=== PATIENT | male | born 1970 | race Two or more races ===

== ENCOUNTER 2020-06-16 16:00 | Emergency (ER) | payer OTHER, SELFPAY ==
[2020-06-16 19:11] VITALS: BP 159/99; PULSE 84; RESP 16; TEMP 36.8; O2SAT 99; BMI 27.2
--- NOTE | 2020-06-16 19:25 | ED_ITS ---
HPI - General Adult General Chief complaint: General Medical Stated complaint: ARM TINGLING Time Seen by Provider: 06/16/20 19:19 Source: patient Mode of arrival: ambulatory Limitations: no limitations History of Present Illness HPI narrative: 50 yo male with past medical history of asthma, HLD, anemia, chronic back pain here with left arm numbness x 1 week. Patient tells me he started having shoulder pain and was doing alot of activity then developed left arm numbness which is intermittent and associated with pain. No weakness. No injury or trauma. No CASTRO, dizziness. Taking flexeril 5 mg PRN with continued sym ptoms. Onset (ago): day(s) Location: upper extremity Radiation: extremity (down left arm ) Severity: mild Quality: burning Pain Consistency: intermittent Relieving factors: none Exacerbating factors: none Associated symptoms: denies other symptoms Related Data Previous Rx's Medication Instructions Recorded simvastatin 10 mg tablet 10 mg PO BEDTIME 90 Days #90 tab 05/23/20 ascorbic acid (vitamin C) 500 mg 500 mg PO DAILY #30 tab 06/01/20 tablet cyclobenzaprine 10 mg PO TID PRN #10 tab 06/16/20 dexamethasone [Decadron] 4 mg PO DAILY #5 tab 06/16/20 naproxen 500 mg PO BID #14 tab 06/16/20 Allergies Allergy/AdvReac Type Severity Reaction Status Date / Time Penicillins [PENICILLINS] Allergy Unknown STOMACH Unverified 04/29/20 15:00 UPSET Penicillin AdvReac Unknown upset Uncoded 07/30/19 00:00 stomach Review of Systems Review of Systems: Yes all other systems are reviewed and are negative Constitutional: Constitutional: Reports no additional constitutional complaints, Denies body ache(s), Denies chills, Denies fever(s), Denies headache(s) and Denies weakness Eyes: Eyes: Reports no additional eye complaints and Denies change in vision ENT: Reports system reviewed and no additional complaints, except as documented, Denies dizziness, Denies headache(s), Denies nasal congestion, Denies nasal discharge and Denies neck pain Cardiovascular: Cardiovascular: Reports no additional cardiovascular com plaints, Denies chest pain, Denies leg edema and Denies dyspnea Respiratory: Respiratory: Reports no additional respiratory complaints, Denies cough and Denies dyspnea Gastrointestinal: Gastrointestinal: Reports no additional gastrointestinal complaints, Denies abdominal pain, Denies diarrhea, Denies nausea and Denies vomiting Genitourinary: Genitourinary: Denies urinary incontinence Musculoskeletal: Musculoskeletal: Reports no additional musculoskeletal complaints, Denies back pain, Denies arthralgias, Denies joint swelling, Denies neck pain, Reports numbness and Denies tingling Integumentary/Breasts: Skin/Breast: Reports system reviewed and no additional complaints, except as docu and Denies rash Neurologic: Reports system reviewed and no additional complaints, except as documented, Denies Abnormal speech present, Denies dizziness, Denies headache(s), Reports numbness, Denies tingling and Denies weakness PMFSH Past Medical History Attestation statement: The following information was validated with the patient. Source: obtained from family and nursing notes reviewed Medical History (Updated 06/16/20 @ 20:59 by Sachi Morgan NP) Anemia Asthma Chronic back pain Hypercholesterolemia Social History Social History Advance Directives: No Advance Directives Information Provided: Yes Physical Exam Vital Signs: Vital Signs: Vital Signs Temp Pulse Resp BP Pulse Ox 06/16/20 19:47 71 16 149/98 H 100 06/16/20 19:11 98.2 F 84 16 159/99 H 99 Body Mass Index 27.2 Const: General: cooperative, healthy appearing, comfortable and no acute distress Orientation/consciousness: patient oriented x3 Limitations: no limitations HENMT: Head: Yes normal to inspection Ears: hearing grossly normal aviva aterally General nose exam: Normal external nose present Face and sinus: Yes normal facial exam Mouth: Normal oral and palatal mucosa present Throat: Yes posterior oropharynx normal Eyes: General: appearance normal, both eyes and all related structures Pupils: Equal, round and reactive pupils present Neck: Neck: Yes normal visual inspection Chest: Chest palpation & inspection: normal inspection of the chest Resp: Effort & Inspection: normal respiratory effort Auscultation: clear to auscultation bilaterally Cardio: Rate: regular rate Rhythm: regular rhythm Peripheral pulses: Peripheral pulses 2+ throughout GI: Inspection: Yes normal to inspection Palpation (GI): Soft to palpation and nontender Auscultation: normal bowel sounds Back/Spine/Pelvis: Thoracic/Lumbar Spine: thoracic and lumbar spine normal to inspection Skin: General skin exam: no rashes or lesions noted Neuro: Other: +spurlings test Pain over left trapezius with palpable muscle spasm, able to reproduce pain/numbness with massage of trapezius. Patient tells me he pain and numbness down the lateral upper left arm General: patient oriented x3, Normal light touch and pain sensation, no focal motor deficits and normal sensation to monofilament Cranial nerves: Yes CN's II-XII intact bilaterally, Yes Equal, round and reactive pupils present, Yes Bilaterally intact EOM present, Yes Nystagmus not present, Yes Normal facial strength present, Yes Midline tongue present and Yes Normal gag reflex present Cognition (Neuro): normal cognition Speech: No Abnormal speech present Gait exam (Neuro): Normal gait present Motor exam (neuro): 5/5 motor strength present throughout Sensory Exam: Normal double simultaneous stimulation for sensation Deep tendon reflexes (DTR's): Right triceps reflex intensity grade: 2+, Left triceps reflex intensity grade: 2+, Rt Biceps (C5, C6): 2+, Left biceps reflex intensity grade: 2+, Right brachioradialis reflex intensity grade: 2+ and Left brachioradialis reflex intensity grade: 2+ Coordination: gasrgw-[id number]-qneh test normal and [id number]-[id number] test normal Extrem: General: Yes normal to inspection Course Course Course Narrative: 50 yo male here with left shoulder/arm pain and intermittent numbness/tingling of the LLE x 1 week. On exam patient has some lower cervical tenderness. Has pain over left trapezius with palpable muscle spasm. FROM of the LLE, no weakness, reflexes intact. More c/w with cervical radiculopathy. Will check labs, imaging, EKG, provide analgesia and re-assess. 2100- labs are unremarkable. Imaging negative. EKG unremarkable. Patient is feeling improved on discharge. Exam is consistent with cervical radiculopathy. Reviewed worrisome signs and symptoms and when to return to the emergency department. Comfortable discharge home. Medical Decision Making MDM Narrative Medical decision making narrative: * cervical radiculopathy, ICH vs mass, c ervical myelopathy, electrolyte abnormality. More likely cervical radiculopathy with symptoms along a single dermatome, gradual in onset, +spurlings test. Less likely ICH or tumor with unremarkable CT. Less likely cervical myelopathy with no weakness and normal reflexes. Medical Records Medical records reviewed: Yes I reviewed the patient's medical records. Lab Data Lab results reviewed: Yes I reviewed the patient's lab results. Result diagrams: 06/16/20 19:52 06/16/20 19:52 Labs: Lab Results 06/16/20 06/16/20 Range/Units 19:52 19:52 WBC 7.7 (4.8-10.8) X10*3/uL RBC 5.01 (4.60-5.80) X10*6/uL Hgb 15.4 (14.0-18.0) g/dl Hct 46.9 (42-52) % MCV 93.6 (80-98) fL MCH 30.7 (27.0-33.0) pg MCHC 32.8 (31.0-36.0) g/dl RDW 12.3 (11.0-16.0) % Plt Count 244 (160-400) X10*3/uL MPV 10.9 (9.4-12.4) fL Immature Gran % (Auto) 0.3 (0.0-0.4) % Neut % (Auto) 55.8 (45-73) % Lymph % (Auto) 32.5 (20-40) % [place] % (Auto) 8.7 (2-11) % Eos % (Auto) 1.9 (0-4) % Baso % (Auto) 0.8 (0-2) % Lymph # (Auto) 2.5 (1.2-4.9) X10*3/uL [place] # (Auto) 0.7 (0.1-1.2) X10*3/uL Eos # (Auto) 0.2 (0.0-0.4) X10*3/uL Baso # (Auto) 0.1 (0.0-0.2) X10*3/uL Abs Immat Gran (auto) 0.02 (0.00-0.03) X10*3/uL Absolute Neuts (auto) 4.3 (2.0-8.3) X10*3/uL Absolute Nucleated RBC 0.000 (0.0-0.012) X10*3/uL Nucleated RBC % (auto) 0.0 (0.0-0.2) /100WBC Sodium 139 (135-145) mmol/L Potassium 4.2 (3.3-5.1) mmol/l Chloride 102 (96-108) mmol/L Carbon Dioxide 31 H (22-29) mmol/L Anion Gap 10 L (12-20) BUN 16 (9-16) mg/dL Creatinine 1.19 (0.5-1.4) mg/dL Estim Creat Clear Calc 63.5 Estimated GFR > 60 Random Glucose 117 H (60-115) mg/dL Calcium 9.7 (8.4-10.2) mg/dL Magnesium 2.5 (1.6-2.6) mg/dL Total Bilirubin 0.5 (0.0-1.0) mg/dL Direct Bilirubin < 0.2 (0.0-0.5) mg/dL AST 20 (5-37) U/L ALT 33 (0-40) U/L Alkaline Phosphatase 50 (39-117) U/L Total Protein 7.7 (6.5-8.0) g/dL Albumin 4.8 (3.5-5.0) g/dL Imaging Data Chest x-ray: Attestation: I personally reviewed and interpreted this imaging study as follows: Radiologist's impression: EXAMINATION: CHEST 2 VIEWS CLINICAL INFORMATION: Numbness. COMPARISON: 08/12/2010. TECHNIQUE: PA and lateral views of the chest obtained. FINDINGS: The lungs are hypoexpanded. No focal infiltrate, effusion, edema, or pneumothorax. Cardiac and mediastinal silhouettes are within normal limits for technique. No acute bony abnormality seen XR/XR chest 2V IMPRESSION: No evidence of acute disease cervical xry: Attestation: I personally reviewed and interpreted this imaging study as follows: Radiologist's impression: EXAMINATION: XR CERVICAL SPINE CLINICAL INFORMATION: Numbness COMPARISON: None TECHNIQUE: Frontal, lateral, swimmer's, and odontoid views of the cervical spine obtained FINDINGS: There is no prevertebral soft tissue swelling. There is a mild straightening of the normal cervical lordosis. Multilevel degenerative changes are seen with anterior osteophyte formation more so from C4/C5 to C6/C7 with loss of disc height more so at C5/C6. No acute fracture or spondylolisthesis. Visualized airway and lung apices unremarkable. XR/XR cervical spine 3V IMPRESSION: Mild multilevel degenerative changes more so at C5/C6. No acute bony abnormality. CT scan - head: Attestation: I personally reviewed and interpreted this imaging study as follows: Radiologist's impression: EXAMINATION: CT HEAD WITHOUT CONTRAST CLINICAL INFORMATION: Left arm numbness. COMPARISON: None TECHNIQUE: Contiguous axial imaging was performed from the skull base to vertex without intravenous administration of contrast. Coronal and sagittal reformatted images are performed at the CT scanner This CT examination was performed using dose optimization techniques as appropriate, variously including the following: *Automated exposure control *Adjustment of mA and/or kV according to patient size (this includes techniques or standardized protocols for targeted exams where dose is matched to indication/reason for exam; i.e. extremities or head) *Use of iterative reconstruction technique DLP: 712 mGy-cm FINDINGS: There is no evidence of acute intracranial hemorrhage or territorial infarction. No abnormal mass effect or midline shift is seen. Foley to white matter differentiation is well preserved. No extra-axial fluid collections are identified. The ventricles are normal in size. There is no abnormal attenuation within the brain parenchyma. The osseous structures and soft tissues are normal. Large retention cyst in the right and left maxillary sinuses partially imaged scattered mucosal thickening in the ethmoid sinuses bilateral. There is normal aeration of the mastoid air cells and middle ear cavities. CT/CT head/brain wo con IMPRESSION: No acute intracranial pathology. ECG Data Attestation: I personally reviewed and interpreted this ECG as follows: Interpretation: NSR with rate 74, normal pr, normal qrs, normal qt Discharge Plan Discharge Clinical Impression: Cervical radiculopathy Patient Disposition: Home, Self-Care Instructions: Cervical Radiculopathy (ED) Additional Instructions: Heat to the area gentle stretching Prescriptions: New cyclobenzaprine 10 mg tablet 10 mg PO TID PRN (Reason: muscle spasm) Qty: 10 RF: 0 naproxen 500 mg tablet 500 mg PO BID Qty: 14 RF: 0 dexamethasone [Decadron] 4 mg tablet 4 mg PO DAILY Qty: 5 RF: 0 No Action simvastatin 10 mg tablet 10 mg PO BEDTIME 90 Days Qty: 90 RF: 0 ascorbic acid (vitamin C) 500 mg tablet 500 mg PO DAILY Qty: 30 RF: 11 Referrals: Po,Allyn Joy MD [Primary Care Provider] - 2 days (if no better )
--- NOTE | 2020-06-16 19:25 | ECG_ITS ---
Test Reason : WEAKNESS Blood Pressure : / mmHG Vent. Rate : 074 BPM Atrial Rate : 074 BPM P-R Int : 168 ms QRS Dur : 094 ms QT Int : 364 ms P-R-T Axes : 047 049 020 degrees QTc Int : 404 ms Normal sinus rhythm with sinus arrhythmia Normal ECG When compared with ECG of 09-DEC-2018 16:53, Vent. rate has decreased BY 51 BPM Referred By: Sachi Morgan Electronically Signed By:APOLINAR VILLALOBOS MD
--- NOTE | 2020-06-16 19:44 | XR_ITS ---
EXAMINATION: XR CERVICAL SPINE CLINICAL INFORMATION: Numbness COMPARISON: None TECHNIQUE: Frontal, lateral, swimmer's, and odontoid views of the cervical spine obtained FINDINGS: There is no prevertebral soft tissue swelling. There is a mild straightening of the normal cervical lordosis. Multilevel degenerative changes are seen with anterior osteophyte formation more so from C4/C5 to C6/C7 with loss of disc height more so at C5/C6. No acute fracture or spondylolisthesis. Visualized airway and lung apices unremarkable. XR/XR cervical spine 3V IMPRESSION: Mild multilevel degenerative changes more so at C5/C6. No acute bony abnormality.
[2020-06-16 19:47] VITALS: BP 149/98; PULSE 71; RESP 16; O2SAT 100
[2020-06-16 20:00] LABS: Basophils Absolute Auto 0.1 X10*3/uL (0.0-0.2); Basophils Percent Auto 0.8 % (0-2); Eosinophils Absolute Auto 0.2 X10*3/uL (0.0-0.4); Eosinophils Percent Auto 1.9 % (0-4); Hematocrit 46.9 % (42-52); Hemoglobin 15.4 g/dl (14.0-18.0); Imm Gran Abs Auto 0.02 X10*3/uL (0.00-0.03); Imm Gran Pct Auto 0.3 % (0.0-0.4); Lymphocytes Absolute Auto 2.5 X10*3/uL (1.2-4.9); Lymphocytes Percent Auto 32.5 % (20-40); Mean Corpuscular HGB Conc 32.8 g/dl (31.0-36.0); Mean Corpuscular Hemoglobin 30.7 pg (27.0-33.0); Mean Corpuscular Volume 93.6 fL (80-98); Mean Platelet Volume 10.9 fL (9.4-12.4); Monocytes Absolute Auto 0.7 X10*3/uL (0.1-1.2); Monocytes Percent Auto 8.7 % (2-11); Neutrophils Absolute Auto 4.3 X10*3/uL (2.0-8.3); Neutrophils Percent Auto 55.8 % (45-73); Platelet Count 244 X10*3/uL (160-400); Red Blood Count 5.01 X10*6/uL (4.60-5.80); Red Cell Distribution Width 12.3 % (11.0-16.0); White Blood Count 7.7 X10*3/uL (4.8-10.8)
[2020-06-16 20:01] LABS: MANUAL DIFF FLAG NO
[2020-06-16] MEDS: Ketorolac Tromethamine 60 MG/2 ML VIAL IM (20:04)
[2020-06-16] MEDS: diazePAM 5 MG TABLET PO (20:04)
[2020-06-16 20:23] LABS: Alanine Aminotransferase 33 U/L (0-40); Albumin Level 4.8 g/dL (3.5-5.0); Alkaline Phosphatase 50 U/L (39-117); Anion Gap 10 (12-20); Aspartate Amino Transferase 20 U/L (5-37); Bilirubin Direct < 0.2 mg/dL (0.0-0.5); Bilirubin Total 0.5 mg/dL (0.0-1.0); Blood Urea Nitrogen 16 mg/dL (9-16); Calcium 9.7 mg/dL (8.4-10.2); Carbon Dioxide 31 mmol/L (22-29); Chloride 102 mmol/L (96-108); Creatinine Clr Calc Pharmacy 63.5; Estimated Glomerular Filt Rate > 60; Glucose Random 117 mg/dL (60-115); Magnesium 2.5 mg/dL (1.6-2.6); Potassium 4.2 mmol/l (3.3-5.1); Sodium 139 mmol/L (135-145); Total Protein 7.7 g/dL (6.5-8.0)
[2020-06-16 21:07] VITALS: BP 164/107; PULSE 81; RESP 16; O2SAT 99
== END 2020-06-16 21:44 | disposition home or self-care (01) ==
PROVIDERS: Nurse Practitioner Family; Emergency Provider Internal Medicine; PCP Internal Medicine
DX: M54.12 Radiculopathy, cervical region (principal); M79.602 Pain in left arm; R20.0 Anesthesia of skin; Z79.899 Other long term (current) drug therapy
CPT/HCPCS: 36415; 70450; 71046; 72040; 80048; 80076; 83735; 85025; 93005; 96372; 99284; J1885

== ENCOUNTER 2020-07-29 17:35 | Outpatient (REF) | payer OTHER, SELFPAY ==
--- NOTE | 2020-07-29 17:37 | MR_ITS ---
EXAMINATION: MR CERVICAL SPINE WITHOUT CONTRAST CLINICAL INFORMATION: Neuralgia and neuritis. COMPARISON: Plain films of the cervical spine 06/16/2020. TECHNIQUE: MRI of the cervical spine was obtained using routine sequences without contrast. FINDINGS: VERTEBRAL BODIES AND PARASPINAL SOFT TISSUES: There is a mild degenerative anterolisthesis of C4 on C5. There is multilevel narrowing of intervertebral disc height, most prominent at C5-C6. There are multilevel degenerative endplate contour changes. There are mild edematous signal changes in the right facet at C4-C5. Vertebral body heights are maintained. No fractures are demonstrated. Overall, marrow signal is homogenous. On the localizer images there is opacification of the right maxillary sinus. The paravertebral structures and visualized upper lung gonzalez are unremarkable. CERVICOMEDULLARY JUNCTION AND VISUALIZED POSTERIOR FOSSA: The craniocervical and posterior fossa structures are normal. Accounting for artifact, spinal cord signal appears normal. SPINAL LEVELS: C2-C3: Disc contour is normal. There is no spinal cord compression or central stenosis. The neural foramina are patent. C3-C4: There is mild bilateral facet arthropathy. There is a broad-based posterior disc protrusion which flattens the ventral thecal sac, but there is no spinal cord compression or central stenosis. There are uncovertebral osteophytes, and is moderate right foraminal narrowing. C4-C5: There is severe right facet arthropathy. There is a broad-based posterior disc protrusion which effaces CSF ventral to the spinal cord but there is no spinal cord compression or central stenosis. There are uncovertebral osteophytes. There is moderate right and mild left foraminal narrowing. C5-C6: There is mild bilateral facet arthropathy. There is a broad-based posterior disc protrusion which effaces CSF ventral to the spinal cord with minimal flattening of the cord. This is most prominent to the left of midline. There is mild central stenosis. There are uncovertebral osteophytes, and there is moderate left and mild right foraminal narrowing. C6-C7: There is mild bilateral facet arthropathy. There is a broad-based posterior disc protrusion which is most prominent on the left and narrows the lateral recess of the spinal canal. There is effacement of CSF ventral to the spinal cord without spinal cord compression. There is mild central stenosis. There are uncovertebral osteophytes. There is moderate to severe left and mild right foraminal narrowing. C7-T1: There is mild bilateral facet arthropathy. Posterior disc contour is normal. There is no spinal cord compression or central stenosis. The neural foramina are patent bilaterally. MR/MR cervical spine wo con IMPRESSION: 1. At C5-C6 there is a broad-based posterior disc protrusion, most prominent on the left. There is mild central stenosis. There is moderate left and mild right foraminal narrowing. 2. At C6-C7 there is a broad-based posterior disc protrusion which is most prominent on the left. There is mild central stenosis. There is moderate to severe left and mild right foraminal narrowing. 3. At C4-C5 there is severe right facet arthropathy. There is moderate right and mild left foraminal narrowing. There is no central stenosis.
== END 2020-07-29 17:36 | disposition home or self-care (01) ==
LOC: HO.MRI 17:35
PROVIDERS: Visit Provider Internal Medicine
DX: M79.2 Neuralgia and neuritis, unspecified (principal)
CPT/HCPCS: 72141

== ENCOUNTER 2021-01-05 09:44 | Outpatient (REF) | payer OTHER, SELFPAY ==
--- NOTE | 2021-01-05 09:47 | EMG_ITS ---
This is a 50-year-old man with a history of left upper extremity pain and numbness for the last 6 months. CURRENT MEDICATIONS: Meloxicam and simvastatin. He has had similar complaints many years ago, for which he had a normal nerve conduction study. PHYSICAL EXAMINATION: On examination, he is alert and oriented with normal intellectual functions. Cranial nerves II through XII are normal. No Tinel or Phalen sign. IMPRESSION: Rule out carpal tunnel syndrome. Nerve conduction EMG study: Normal electrodiagnostic study of the left upper extremity with no evidence of carpal tunnel syndrome or nerve entrapment. Normal EMG of the left C5-T1 innervated muscles. MD KARRIE Franklin/HOLLIS / [id number]
== END 2021-01-05 09:45 | disposition home or self-care (01) ==
LOC: HO.NEURO 09:44
PROVIDERS: Visit Provider Internal Medicine
DX: R20.0 Anesthesia of skin (principal)
CPT/HCPCS: 95885; 95910

== ENCOUNTER 2021-04-15 10:02 | Outpatient (REF) | payer OTHER, SELFPAY ==
[2021-04-15 11:01] LABS: MANUAL DIFF FLAG NO
[2021-04-15 11:10] LABS: Basophils Absolute Auto 0.1 X10*3/uL (0.0-0.2); Basophils Percent Auto 0.8 % (0-2); Eosinophils Absolute Auto 0.4 X10*3/uL (0.0-0.4); Eosinophils Percent Auto 5.7 % (0-4); Hemoglobin 13.8 g/dl (14.0-18.0); Imm Gran Abs Auto 0.01 X10*3/uL (0.00-0.03); Imm Gran Pct Auto 0.2 % (0.0-0.4); Lymphocytes Absolute Auto 2.3 X10*3/uL (1.2-4.9); Mean Corpuscular HGB Conc 32.9 g/dl (31.0-36.0); Mean Corpuscular Hemoglobin 30.5 pg (27.0-33.0); Mean Corpuscular Volume 92.7 fL (80-98); Mean Platelet Volume 11.1 fL (9.4-12.4); Monocytes Absolute Auto 0.8 X10*3/uL (0.1-1.2); Monocytes Percent Auto 12.6 % (2-11); Neutrophils Absolute Auto 2.7 X10*3/uL (2.0-8.3); Neutrophils Percent Auto 43.7 % (45-73); Platelet Count 239 X10*3/uL (160-400); Red Blood Count 4.53 X10*6/uL (4.60-5.80); Red Cell Distribution Width 12.9 % (11.0-16.0); White Blood Count 6.1 X10*3/uL (4.8-10.8)
[2021-04-15 11:30] LABS: Alanine Aminotransferase 64 U/L (0-40); Albumin Level 4.3 g/dL (3.5-5.0); Alkaline Phosphatase 52 U/L (39-117); Anion Gap 11 (12-20); Aspartate Amino Transferase 33 U/L (5-37); Bilirubin Total 0.5 mg/dL (0.0-1.0); Blood Urea Nitrogen 10 mg/dL (9-16); Calcium 9.6 mg/dL (8.4-10.2); Carbon Dioxide 27 mmol/L (22-29); Chloride 105 mmol/L (96-108); Cholesterol 173 mg/dL; Estimated Glomerular Filt Rate > 60; Glucose Random 104 mg/dL (60-115); HDL Cholesterol 40 mg/dL; LDL Cholesterol Calculated 85 mg/dl; Potassium 4.7 mmol/L (3.3-5.1); Sodium 138 mmol/L (135-145); Total Protein 6.8 g/dL (6.5-8.0); Triglycerides 242 mg/dL
[2021-04-15 11:50] LABS: Free T4 (Free Thyroxine) 0.96 ng/dL (0.71-1.85); Thyroid Stimulating Hormone 0.66 uIU/mL (0.32-4.0)
[2021-04-15 12:01] LABS: Folate 9.8 ng/mL (> or = 4.0); Vitamin B12 1165 pg/mL (200-900)
[2021-04-15 12:04] LABS: Estimated Average Glucose 111 mg/dL; Hemoglobin A1c % 5.5 %
== END 2021-04-15 10:03 | disposition home or self-care (01) ==
LOC: HO.LAB 10:02
PROVIDERS: PCP Internal Medicine; Visit Provider Internal Medicine
DX: R73.01 Impaired fasting glucose (principal); E78.00 Pure hypercholesterolemia, unspecified
CPT/HCPCS: 36415; 80053; 80061; 82607; 82746; 83036; 84439; 84443; 85025

== ENCOUNTER 2021-10-13 11:11 | Outpatient (REF) | payer OTHER, SELFPAY ==
[2021-10-13 11:37] LABS: MANUAL DIFF FLAG NO
[2021-10-13 11:45] LABS: Basophils Percent Auto 0.5 % (0-2); Eosinophils Absolute Auto 0.3 X10*3/uL (0.0-0.4); Eosinophils Percent Auto 3.8 % (0-4); Hematocrit 44.1 % (42.0-52.0); Hemoglobin 14.4 g/dl (14.0-18.0); Imm Gran Abs Auto 0.06 X10*3/uL (0.00-0.03); Imm Gran Pct Auto 0.8 % (0.0-0.4); Immature Retic Fraction 11.9 % (2.3-13.4); Lymphocytes Absolute Auto 2.9 X10*3/uL (1.2-4.9); Lymphocytes Percent Auto 40.1 % (20-40); Mean Corpuscular HGB Conc 32.7 g/dl (31.0-36.0); Mean Corpuscular Hemoglobin 29.6 pg (27.0-33.0); Mean Corpuscular Volume 90.7 fL (80.0-98.0); Mean Platelet Volume 10.9 fL (9.4-12.4); Monocytes Absolute Auto 0.8 X10*3/uL (0.1-1.2); Monocytes Percent Auto 11.1 % (2-11); Neutrophils Absolute Auto 3.2 x10*3/uL (2.0-8.3); Neutrophils Percent Auto 43.7 % (45-73); Platelet Count 253 X10*3/uL (160-400); Red Blood Count 4.86 X10*6/uL (4.60-5.80); Red Cell Distribution Width 13.4 % (11.0-16.0); Retic HGB Equivalent 35.2 pg (30.0-35.0); Reticulocyte Percent 1.7 % (0.5-1.8); Reticulocytes Absolute 0.083 X10*6/uL (0.026-0.095); White Blood Count 7.3 X10*3/uL (4.8-10.8)
[2021-10-13 13:19] LABS: Ferritin 582 ng/mL (20-250)
[2021-10-13 13:47] LABS: Alanine Aminotransferase 58 U/L (0-40); Albumin Level 4.6 g/dL (3.5-5.0); Alkaline Phosphatase 53 U/L (39-117); Anion Gap 13 (12-20); Aspartate Amino Transferase 25 U/L (5-37); Bilirubin Total 0.5 mg/dL (0.0-1.0); Blood Urea Nitrogen 15 mg/dL (9-16); Calcium 10.2 mg/dL (8.4-10.2); Carbon Dioxide 29 mmol/L (22-29); Chloride 102 mmol/L (96-108); Estimated Glomerular Filt Rate > 60; Glucose Random 104 mg/dL (60-115); Iron 118 mcg/dL (45-160); Percent Iron Saturation 29 % (15-50); Potassium 4.4 mmol/L (3.3-5.1); Sodium 140 mmol/L (135-145); Total Iron Binding Capacity 408 mcg/dL (228-428); Total Protein 7.5 g/dL (6.5-8.0); Unsaturated Iron Binding 290 ug/dL
== END 2021-10-13 11:12 | disposition home or self-care (01) ==
LOC: HO.LAB 11:11
PROVIDERS: PCP Internal Medicine; Visit Provider Internal Medicine
DX: D64.9 Anemia, unspecified (principal)
CPT/HCPCS: 36415; 80053; 82728; 83540; 85025; 85045

== ENCOUNTER 2021-10-18 12:23 | Outpatient (REF) | payer OTHER, SELFPAY ==
--- NOTE | ~2021-10-18 | XR_ITS ---
EXAMINATION: XR LUMBOSACRAL SPINE CLINICAL INFORMATION: Lower back pain for month and a half. COMPARISON: Selected images of the abdomen and pelvis CT of 05/07/2017, lumbar spine x-rays of 05/10/2016. TECHNIQUE: Three views of the lumbosacral spine. FINDINGS: There are 5 lumbar-type [id number] vertebrae. The vertebral body heights and alignment are maintained. Intervertebral disc spaces are well preserved. Small marginal endplate osteophytes are noted at multiple levels. Facet arthropathy is seen in the [id number] lumbar spine. No suspicious lytic or blastic osseous lesions. No remarkable findings are noted in the paraspinous region. Limited evaluation of sacroiliac joints and visualized hip joints are unremarkable. XR/XR lumbar spine 2-3V IMPRESSION: Mild lumbar spondylosis. No evidence of compression fracture or suspicious osseous lesion.
[2021-10-18 13:51] LABS: Ferritin 627 ng/mL (20-250)
== END 2021-10-18 12:24 | disposition home or self-care (01) ==
LOC: HO.XRAY 12:23
PROVIDERS: PCP Internal Medicine; Visit Provider Internal Medicine
DX: M54.10 Radiculopathy, site unspecified (principal); R79.89 Other specified abnormal findings of blood chemistry
CPT/HCPCS: 36415; 72100; 82728

== ENCOUNTER → 2021-10-26 08:01 | Outpatient (BNV) | payer OTHER, SELFPAY | PROVIDERS: PCP Internal Medicine; Referring Provider Internal Medicine; Visit Provider Internal Medicine | DX: R79.89 Other specified abnormal findings of blood chemistry (principal) | CPT/HCPCS: 99203; 99213; 99214; G2211 ==

== ENCOUNTER 2021-11-11 10:45 | Outpatient (REF) | payer OTHER, SELFPAY ==
[2021-11-11 12:23] LABS: Alanine Aminotransferase 74 U/L (0-40); Albumin Level 4.4 g/dL (3.5-5.0); Alkaline Phosphatase 57 U/L (39-117); Aspartate Amino Transferase 34 U/L (5-37); Bilirubin Direct < 0.2 mg/dL (0.0-0.5); Bilirubin Total 0.3 mg/dL (0.0-1.0); Total Protein 7.4 g/dL (6.5-8.0)
[2021-11-11 12:33] LABS: HBc Num1 0.08 S/CO (0.00-0.79); HBsAGNum1 0.19 S/CO (0.00-0.99); Hepatitis A Antibody IgM 0.13 Index (0-0.79); Hepatitis B Core Antibody Nonreactive (Nonreactive); Hepatitis B Surface Antigen Negative (Negative); ~Hepatitis A Antibody IgM Nonreactive (Nonreactive)
[2021-11-11 12:38] LABS: HBS Num1 2.67 mIU/mL (0-7.99); ~HepC Num1 0.22 S/CO (0.00-0.79); ~Hepatitis B Surface Antibody NONREACTIVE (Nonreactive); ~Hepatitis C Antibody Nonreactive (Nonreactive)
[2021-11-12 13:51] LABS: Alpha 1 Anti-trypsin 126 mg/dL (83-199)
[2021-11-12 14:35] LABS: Anti Nuclear Antibody Screen NEGATIVE (NEGATIVE)
[2021-11-14 16:51] LABS: Mitochondrial Antibodies NEGATIVE (NEGATIVE)
[2021-11-16 13:35] LABS: Smooth Muscle Antibody <20 U (<20)
== END 2021-11-11 10:46 | disposition home or self-care (01) ==
LOC: HO.LAB 10:45
PROVIDERS: PCP Internal Medicine; Visit Provider Internal Medicine
DX: R79.89 Other specified abnormal findings of blood chemistry (principal)
CPT/HCPCS: 36415; 80076; 82103; 86015; 86038; 86039; 86255; 86256; 86704; 86706; 86709; 86803; 87340

== ENCOUNTER 2021-11-21 07:47 | Outpatient (REF) | payer OTHER, SELFPAY ==
--- NOTE | ~2021-11-21 | US_ITS ---
EXAMINATION: US ABDOMEN COMPLETE CLINICAL INFORMATION: Elevated LFTs. COMPARISON: US retro. Peritoneal limited (renal only) 08/27/2019 and 08/26/2018. CT abdomen and pelvis without contrast 05/07/2017. XR abdomen KUB 10/12/2016. TECHNIQUE: Real-time imaging of the abdominal viscera. FINDINGS: PANCREAS: The visualized portion of the pancreas head and body are normal, portion of the pancreatic body and tail, not visualized are obscured by bowel gas. ABDOMINAL AORTA: The proximal, mid, and distal segments are normal in caliber. INFERIOR VENA CAVA: Visualized portions are normal. LIVER: The liver is normal in size. The liver contour is normal. Increased echogenicity of the liver parenchyma, this can be seen in the setting of hepatic steatosis or liver parenchymal disease. No focal hepatic lesion. There is no intrahepatic biliary duct dilatation seen. GALLBLADDER: Normal. The gallbladder is physiologically distended without evidence of stones, sludge, polyps, wall thickening or pericholecystic fluid. COMMON BILE DUCT: Normal in caliber measuring 0.4 cm in diameter. RIGHT KIDNEY: Echogenic structures likely stones the largest 3 x 2 mm middle pole No hydronephrosis or focal parenchymal lesions. The kidney measures 10.2 cm in maximum dimension. LEFT KIDNEY: Echogenic foci probably nonobstructing stones the largest 2 mm middle pole. There is a simple cyst middle pole 1.8 x 1.8 x 1.7 cm. No hydronephrosis. The kidney measures 10.4 cm in maximum dimension. SPLEEN: Normal. The spleen measures 8.4 cm in maximum dimension. FREE FLUID: None. US/US abdomen complete IMPRESSION: *Exam essentially unchanged, redemonstration of a tiny echogenic foci likely nonobstructing stones in both kidneys and simple cyst left kidney 1.8 cm. *No ultrasound evidence of gallbladder disease or gallstones. *Increased echogenicity of the liver parenchyma, this can be seen in the setting of hepatic steatosis or liver parenchymal disease.
== END 2021-11-21 07:48 | disposition home or self-care (01) ==
LOC: HO.US 07:47
PROVIDERS: PCP Internal Medicine; Visit Provider Internal Medicine
DX: R79.89 Other specified abnormal findings of blood chemistry (principal)
CPT/HCPCS: 76700

== ENCOUNTER 2021-12-02 09:17 | Day surgery (SDC) | payer OTHER, SELFPAY ==
[2021-11-24 14:16] VITALS: BMI 31.8
[2021-12-02 09:47] VITALS: BP 149/98; PULSE 91; RESP 18; TEMP 36.6; O2SAT 98
--- NOTE | 2021-12-02 10:46 | HO.ANESPROP2 ---
HPI - Anesthesia Eval Consult details Narrative: 51 M for colonoscopy GERD , Asthma lower back pain , cervical neck pain with radiculopathy [facility] Active Problems Active Problems: All Active Problems (Updated 11/24/21 @ 14:16 by Courtney Gant RN) Radicular pain in left arm (Acute) Numbness of left hand (Acute) DDD (degenerative disc disease), lumbar (Acute) Annual physical exam (Acute) Colon cancer screening (Acute) Generalized anxiety disorder (Acute) Obesity (BMI 30-39.9) (Acute) Anemia (Acute) COVID-19 virus infection (Acute) Elevated ferritin level (Acute) Sciatic nerve pain (Acute) Radicular syndrome of left lower extremity (Acute) Fatty liver (Acute) Asthma (Acute) Desensitization to allergy shot (Acute) Impaired fasting glucose (Acute) Overweight (BMI 25.0-29.9) (Acute) Hypercholesterolemia (Acute) Past Medical History Medical History (Updated 11/24/21 @ 14:16 by Courtney Gant RN) Anemia Asthma Attention deficit disorder Chronic back pain COVID-19 vaccine series completed Desensitization to allergy shot Elevated ferritin level Fatty liver History of renal calculi Hypercholesterolemia Impaired fasting glucose Overweight (BMI 25.0-29.9) Vitamin B12 deficiency Vitamin D deficiency Family History Family History Father Prostate cancer Bone cancer Brain cancer Mother CVD (cardiovascular disease) Stroke Maternal Uncle Heart disease Paternal Uncle Bone cancer Lung cancer Family history of problems with anesthesia: No Surgical History Surgical History (Updated 11/24/21 @ 13:57 by Courtney Gant RN) H/O colonoscopy History of ear surgery History of nasal surgery History of Problems with Anesthesia: No Social History Social History (Updated 10/26/21 @ 08:36 by Ivanna Clayton CMA) Household Members: Significant Other Housing: Apartment Are you a primary medicare coordinator to a significant other at home: No Do you presently have visiting nurse or other home services: No Alcohol intake: current Alcohol intake frequency: a few times a month Patient Tobacco Use Status: Never used Tobacco e-Cigarette/Vaping Use: Never Used Second Hand Smoke Exposure: No Use of substances other than those prescribed or required for medical reasons: No Have you been hit, kicked, punched, or otherwise hurt by someone within the past year? If so, by whom?: No Are you DNR?: No Advance Directives: No Advance Directives Information Provided: Yes (brochure mailed) Advance Directives on File: No Recently lost weight without trying: No Eating poorly because of decreased appetite: No Nutrition Risks: No Nutritional Risk service: No Current occupational status: disabled Current occupational exposures/hazards: No Meds Allergies Allergy/AdvReac Type Severity Reaction Status Date / Time Penicillins [PENICILLINS] Allergy Intermediate STOMACH Verified 11/24/21 13:53 UPSET Active Medications: Current Medications Sodium Biphosphate/Sodium Phosphate (Sodium Phosphate,Blaine-Dibasic 133 Ml Enema) 133 ml NH ONCE PRN PRN Reason: Poor Colonoscopy Prep Results Home Medications Medication Instructions Recorded Confirmed Last Taken Type mirtazapine 15 mg tablet 15 mg PO BEDTIME 07/27/20 11/24/21 Unknown History quetiapine 200 mg tablet (Seroquel) 200 mg PO BEDTIME 01/27/21 11/24/21 Unknown History Exam Exam Date and Time: December 02, 2021 1046 Height,Weight and Vital Signs: Height 5 ft 2 in Weight 78.925 kg Last Vital Signs Temp 97.9 F 12/02/21 09:47 Pulse 91 12/02/21 09:47 Resp 18 12/02/21 09:47 BP 149/98 H 12/02/21 09:47 Pulse Ox 98 12/02/21 09:47 Airway Mallampati Class: II TM Dist: >3cm Loose/Missing/Broken Teeth: Yes (Chipped and missing ) Heart: S1 , S2 Assessment and Plan Assessment Anesthesia Assessment: Anesthesia Plan Discussed and Chart Reviewed Final Anesthetic Review Family History of Problems with Anesthesia: No History of Problems with Anesthesia: No ASA Class: II Final Preanesthetic Review: Meds/Allgs Chart Reviewed, Consent Obtained/Reviewed and Anes Risks/Benef Reviewed Patient Risk: Intermediate Procedure Risk: Intermediate Anesthetic Plan Anesthetic Plan: MAC: Disposition: Standard PACU
[2021-12-02] MEDS: Lactated Ringers 1,000 ML 80 ML IVCONT (11:18)
--- NOTE | 2021-12-02 12:42 | PM.OP ---
Brief Operative Note Date of Service: 12/02/21 Pre-op diagnosis: Screening Post-op diagnosis: other (Colon polyp) Procedure: Colonoscopy to the cecum and TI with cold snare polypectomy Surgeon: Farshad Seay Anesthesia: MAC Was an Billing Checker used for this Procedure?: No Estimated blood loss (mL): 2.0 Pathology: other (A. Transverse colon polyp) Condition: stable Disposition: PACU
[2021-12-02 12:43] VITALS: BP 121/78; PULSE 93; RESP 12; TEMP 36.1; O2SAT 99
[2021-12-02 12:58] VITALS: BP 134/88; PULSE 75; RESP 16; TEMP 36.1; O2SAT 100
--- NOTE | 2021-12-02 14:10 | OP_ITS ---
SURGEON: Farshad Seay MD INDICATIONS: The patient presents for evaluation of colorectal cancer screening. Full consent was obtained from him for this, including risks of bleeding and perforation. PREOPERATIVE DIAGNOSIS: Colorectal cancer screening. POSTOPERATIVE DIAGNOSIS: PROCEDURE PERFORMED: Colonoscopy to cecum and terminal ileum with cold snare polypectomy. ESTIMATED BLOOD LOSS: COMPLICATIONS: ANESTHESIA: Monitored anesthesia care. ASSISTANTS: SPECIMENS: POSTOPERATIVE DIAGNOSES: Colorectal cancer screening, colon polyp, diverticulosis and internal hemorrhoids. DESCRIPTION OF PROCEDURE: The patient was placed in the left lateral decubitus position. The digital rectal exam revealed no abnormalities. The Olympus video pediatric colonoscope was entered into the rectum and advanced easily to the cecum. Once in the cecum I did identify normal-appearing cecal pouch with appendiceal orifice and a normal-appearing ileocecal valve. The terminal ileum was cannulated and appeared normal. The scope was withdrawn back into the colon. The entire cecum and ileocecal valve appeared normal. The scope was slowly withdrawn assessing all mucosal surfaces carefully. Preparation was excellent. In the transverse colon was an approximately 5 mm slightly raised polyp, which was removed by cold snare polypectomy. The polyp was retrieved by suction. The polypectomy site appeared clean, without any sign of residual polyp nor any significant bleeding. I did not visualize any other polyps, colitis, nor angiodysplasia. There was a mild amount of sigmoid diverticulosis. In the rectum, scope was retroflexed visualizing internal hemorrhoids, but no other pathology. The rectal mucosa appeared normal. Scope was straightened and withdrawn from the patient. He tolerated the procedure well and was returned to the recovery area in stable condition. IMPRESSION: 1. Colon polyp, status post cold snare polypectomy. 2. Diverticulosis. 3. Internal hemorrhoids. PLAN: The results of the pathology will be checked. If this is a tubular adenoma, I would recommend a followup colonoscopy in 5 years. If it is only hyperplastic, I would recommend a followup colonoscopy in 10 years. He was advised not to use any aspirin and NSAIDs for 1 week. Of note, in regard to his history of elevated LFTs, the workup for that has been negative. I do suspect this is related to some fatty liver. His most recent liver profile that he had was completely normal other than an ALT of 74. The remainder of the workup was negative. He also had an abdominal ultrasound that was nonrevealing other than a fatty liver. As such, I would recommend that he see me on a p.r.n. basis in this regard. He should have a liver profile once or twice year and then be referred back to me if the liver tests began rising significantly, i.e. greater than 2-3 times normal. MD MICHAELLE Cruz/HOLLIS / [id number] MTDD
== END 2021-12-02 13:42 | disposition home or self-care (01) ==
PROVIDERS: PCP Internal Medicine; Visit Provider Internal Medicine
PROC: 0DJD8ZZ Inspection of Lower Intestinal Tract, Via Natural or Artificial Opening Endoscopic (ICD-10-PCS; CPT 45378; principal; 2021-12-02 10:50)
DX: Z12.11 Encounter for screening for malignant neoplasm of colon (principal); D12.3 Benign neoplasm of transverse colon; K57.30 Diverticulosis of large intestine without perforation or abscess without bleeding; K64.8 Other hemorrhoids; K76.0 Fatty (change of) liver, not elsewhere classified; J45.909 Unspecified asthma, uncomplicated; E83.10 Disorder of iron metabolism, unspecified; Z87.442 Personal history of urinary calculi; Z79.899 Other long term (current) drug therapy
CPT/HCPCS: 45385; 88305

== ENCOUNTER 2022-04-17 12:05 | Emergency (ER) | payer OTHER, SELFPAY ==
[2022-04-17 12:06] VITALS: BP 152/97; PULSE 81; RESP 18; TEMP 36.7; O2SAT 99; BMI 31.1
--- NOTE | 2022-04-17 13:41 | ED_ITS ---
HPI - Skin/Abscess/Foreign Bdy General Chief complaint: Skin/Abscess/Foreign Body Stated complaint: Poison Anjelica Time Seen by Provider: 04/17/22 13:14 Source: patient Mode of arrival: ambulatory Limitations: no limitations History of Present Illness HPI narrative: patient presents emergency department for evaluation of a rash to the right hand and face. He states he was outdoors a couple of days ago police he came in contact with poison anjelica. The right hand was initially itchy, and then began to have a clear fluid that was draining. He states he no apparent with his right hand resting the left side of his face, has a red rash to that area on his face nail. The face is also itchy. Related Data Home Medications Medication Instructions Recorded Confirmed mirtazapine 15 mg tablet 15 mg PO BEDTIME 07/27/20 01/03/22 quetiapine 200 mg tablet (Seroquel) 200 mg PO BEDTIME 01/27/21 01/03/22 Previous Rx's Medication Instructions Recorded budesonide 90 mcg/actuation breath 2 inh inhalation BID #1 ea 08/22/21 activated powder inhaler (Pulmicort Flexhaler) simvastatin 10 mg tablet 10 mg PO BEDTIME 90 days #90 tabs 11/01/21 diclofenac sodium 1 % topical gel 4 g topical QID #100 grams 11/21/21 (Voltaren Arthritis Pain) albuterol sulfate 90 mcg/actuation 2 puff inhalation Q6H PRN 01/03/22 aerosol inhaler (ProAir HFA) shortness of breath or wheezing #8.5 grams fluticasone propionate 50 2 spray intranasal DAILY #48 mL 01/03/22 mcg/actuation nasal spray,suspension meloxicam 15 mg tablet 15 mg PO DAILY #30 tabs 02/22/22 cetirizine 10 mg tablet 10 mg PO DAILY #90 tabs 04/15/22 hydrocortisone 2.5 % topical cream 1 appl topical BID PRN itching #20 04/17/22 grams Allergies Allergy/AdvReac Type Severity Reaction Status Date / Time Penicillins [PENICILLINS] Allergy Intermediate STOMACH Verified 01/03/22 08:13 UPSET Review of Systems Review of Systems: Skin: positive rash Yes all other systems are reviewed and are negative PMFSH Past Medical History Attestation statement: The following information was validated with the patient. Source: old records reviewed Medical History Anemia Asthma Attention deficit disorder Chronic back pain COVID-19 vaccine series completed Desensitization to allergy shot Elevated ferritin level Fatty liver History of renal calculi Hypercholesterolemia Impaired fasting glucose Overweight (BMI 25.0-29.9) Vitamin B12 deficiency Vitamin D deficiency Surgical History H/O colonoscopy History of ear surgery History of nasal surgery Family History Family History Father Prostate cancer Bone cancer Brain cancer Mother CVD (cardiovascular disease) Stroke Maternal Uncle Heart disease Paternal Uncle Bone cancer Lung cancer Social History Social History Household Members: Significant Other Housing: Apartment Are you a primary long term care social worker to a significant other at home: No Do you presently have visiting nurse or other home services: No Alcohol intake: current Alcohol intake frequency: a few times a month Patient Tobacco Use Status: Never used Tobacco e-Cigarette/Vaping Use: Never Used Second Hand Smoke Exposure: No Advance Directives: No Advance Directives Information Provided: No service: No Current occupational status: disabled Current occupational exposures/hazards: No Physical Exam Vital Signs: Vital Signs: Last Vital Signs Temp 98.1 F 04/17/22 12:06 Pulse 81 04/17/22 12:06 Resp 18 04/17/22 12:06 BP 152/97 H 04/17/22 12:06 Pulse Ox 99 04/17/22 12:06 O2 Del Method 04/17/22 12:06 BMI result Body Mass Index 31.1 Appearance: Alert.?Oriented to person, place and time. No acute distress.?Normal affect. Eyes: Pupils equal, round and reactive to light.? ENT: Pharynx normal.?? Neck: Normal inspection.? Neck supple.?? CVS: Heart sounds normal. Normal heart rate and rhythm.? Pulses normal.?? Respiratory: No respiratory distress.? Lung sounds clear to auscultation bilaterally?? Abdomen: Soft and non-tender. Normoactive bowel sounds. No pulsatile mass.?? Skin: Skin warm and dry.? Normal skin color.? small area of maculopapular rash to right dorsal hand With single vesicle present, and left face above upper lip. Extremities: No lower extremity edema.? No calf ttp? Neuro: Moves all extremities spontaneously. Sensation intact bilaterally. CN II- XII intact. No focal neuro deficits. Ambulates with normal steady gait. Course Course Course Narrative: patient is a 52-year-old male who presents to the emergency department for evaluation of a maculopapular rash to the right hand that has spread to the left side of his face. There is a single vesicular eruption on the hand. Please see came in contact with poison anjelica. The rash is pruritic. No linear abrasions. No pain. He has not tried any home remedies or [id number] medications. Rash appears consistent with a contact dermatitis, history does not appear consistent with herpes zoster. Discussed plan of care for discharge home, conservative home measures, hydrocortisone topical cream twice daily, follow-up with primary care provider as needed. Reviewed worrisome signs symptoms return back to the emergency department for. Patient verbalized understanding, was discharged home in stable condition. MDM - Skin/Abscess/Foreign Bdy Medical Records Attestation: I reviewed the patient's medical records. Discharge Plan Discharge Clinical Impression: Contact dermatitis Patient Disposition: Home, Self-Care Instructions: Poison Anjelica (ED) Additional Instructions: as we discussed, this rash will typically resolve on its own within 1-3 weeks. To decrease spread cleanse the areas with mild soap and water. You may use measures at home such as oatmeal bath, cool wet compress, and avoid scratching the areas. You have been given a topical cream to use for the itching, apply hydrocortisone twice daily to the affected areas. If this begins to spread significantly to other parts of your body you may require a course of oral steroids for treatment. Follow-up with your primary care provider as needed. Return to the emergency department any new or worsening symptoms or concerns Prescriptions: New hydrocortisone 2.5 % cream 1 appl topical BID PRN (Reason: itching) Qty: 20 0RF No Action Pulmicort Flexhaler 90 mcg/actuation aerosol powdr breath activated 2 inh inhalation BID Qty: 1 11RF simvastatin 10 mg tablet 10 mg PO BEDTIME 90 Days Qty: 90 1RF diclofenac sodium [Voltaren Arthritis Pain] 1 % gel 4 g topical QID Qty: 100 3RF Rx Instructions: apply to single knee, ankle, foot; for foot includes sole/toes/top of foot fluticasone propionate 50 mcg/actuation spray,suspension 2 spray intranasal DAILY Qty: 48 4RF albuterol sulfate [ProAir HFA] 90 mcg/actuation HFA aerosol inhaler 2 puff inhalation Q6H PRN (Reason: shortness of breath or wheezing) Qty: 8.5 0RF meloxicam 15 mg tablet 15 mg PO DAILY Qty: 30 1RF cetirizine 10 mg tablet 10 mg PO DAILY Qty: 90 3RF quetiapine [Seroquel] 200 mg tablet 200 mg PO BEDTIME mirtazapine 15 mg tablet 15 mg PO BEDTIME
== END 2022-04-17 13:51 | disposition home or self-care (01) ==
PROVIDERS: Emergency Provider Emergency Medicine; PCP Internal Medicine
DX: L23.7 Allergic contact dermatitis due to plants, except food (principal)
CPT/HCPCS: 99282; 99283

== ENCOUNTER 2022-04-23 10:46 | Emergency (ER) | payer OTHER, SELFPAY ==
[2022-04-23 11:01] VITALS: BP 147/109; PULSE 88; RESP 18; TEMP 35.9; O2SAT 98; BMI 31.4
--- NOTE | 2022-04-23 11:14 | ED_ITS ---
HPI - General Adult General Chief complaint: Skin/Abscess/Foreign Body Stated complaint: Poison shanel spreading to eyes Time Seen by Provider: 04/23/22 11:14 Source: patient Mode of arrival: ambulatory Limitations: no limitations History of Present Illness HPI narrative: Patient is a 52 year old male presenting to the emergency department today with worsening poison shanel. Patient states that he was seen here last week for poison shanel and given a cream but it seems to be getting worse and spreading. Patient states that he has been using the cream as prescribed. Patient denies any dizziness, lightheadedness, abdominal pain, nausea, vomiting, fever, chills, blurry vision, double vision, loss of vision, chest pain, difficulty breathing, shortness of breath, back pain, night sweats, pain with urination, increased urinary frequency, increased urinary urgency, blood in his urine or stool, syncope or a near syncopal episode, recent trauma or falls, bowel incontinence, bladder incontinence, bowel retention, bladder retention, or any other complaints at this time. Onset (ago): day(s) Location: face, right and upper extremity Severity: mild Severity scale (1-10): 2 Relieving factors: none Exacerbating factors: none Associated symptoms: denies other symptoms Treatments prior to arrival: other (topical steroids) Related Data Home Medications Medication Instructions Recorded Confirmed mirtazapine 15 mg tablet 15 mg PO BEDTIME 07/27/20 01/03/22 quetiapine 200 mg tablet (Seroquel) 200 mg PO BEDTIME 01/27/21 01/03/22 Previous Rx's Medication Instructions Recorded diclofenac sodium 1 % topical gel 4 g topical QID #100 grams 11/21/21 (Voltaren Arthritis Pain) fluticasone propionate 50 2 spray intranasal DAILY #48 mL 01/03/22 mcg/actuation nasal spray,suspension cetirizine 10 mg tablet 10 mg PO DAILY #90 tabs 04/15/22 hydrocortisone 2.5 % topical cream 1 appl topical BID PRN itching #20 04/17/22 grams albuterol sulfate 90 mcg/actuation 2 puff inhalation Q6H PRN 04/18/22 aerosol inhaler (ProAir HFA) shortness of breath or wheezing #8.5 grams budesonide 90 mcg/actuation breath 2 inh inhalation BID #1 ea 04/18/22 activated powder inhaler (Pulmicort Flexhaler) meloxicam 15 mg tablet 15 mg PO DAILY #30 tabs 04/18/22 simvastatin 10 mg tablet 10 mg PO BEDTIME 90 days #90 tabs 04/18/22 prednisone 20 mg tablet 20 mg PO DAILY 12 days #26 tabs 04/23/22 Allergies Allergy/AdvReac Type Severity Reaction Status Date / Time Penicillins [PENICILLINS] Allergy Intermediate STOMACH Verified 01/03/22 08:13 UPSET Review of Systems Constitutional: Constitutional: Reports no additional constitutional complaints, Denies chills, Denies fever(s) and Denies night sweats Eyes: Eyes: Reports no additional eye complaints, Denies blurry vision, Denies change in vision, Denies diplopia, Denies eye discharge, Denies loss of vision and Denies eye pain ENT: Denies dizziness Cardiovascular: Cardiovascular: Reports no additional cardiovascular complaints, Denies chest pain, Denies lightheadedness, Denies Loss of Consciousness and Denies dyspnea Respiratory: Respiratory: Reports no additional respiratory complaints and Denies dyspnea Gastrointestinal: Gastrointestinal: Reports no additional gastrointestinal complaints, Denies abdominal pain, Denies melena, Denies hematochezia, Denies change in bowel habits and Denies change in stool character Genitourinary: Genitourinary: Reports no additional male genitourinary complaints, Denies hematuria, Denies oliguria, Denies difficulty urinating, Denies dysuria, Denies urinary frequency, Denies urinary hesitancy, Denies urinary incontinence and Denies urinary urgency Musculoskeletal: Musculoskeletal: Reports no additional musculoskeletal complaints, Denies numbness and Denies tingling Integumentary/Breasts: Comments: rash to the right arm, left side of face, and left eyelid Neurologic: Denies dizziness, Denies loss of vision, Denies numbness and Denies tingling Psychiatric: Psychiatric: Reports no additional psychiatric complaints Endocrine: Endocrine: Reports no additional endocrine complaints Hematologic/Lymphatic: Hematologic/Lymphatic: Reports no additional hematologic/lymphatic complaints Allergic/Immunologic: Allergic/Immunologic: Reports no additional allergic/immunologic complaints PMFSH Past Medical History Attestation statement: The following information was validated with the patient. Source: old records reviewed Medical History Anemia Asthma Attention deficit disorder Chronic back pain COVID-19 vaccine series completed Desensitization to allergy shot Elevated ferritin level Fatty liver History of renal calculi Hypercholesterolemia Impaired fasting glucose Overweight (BMI 25.0-29.9) Vitamin B12 deficiency Vitamin D deficiency Surgical History H/O colonoscopy History of ear surgery History of nasal surgery Family History Family History Father Prostate cancer Bone cancer Brain cancer Mother CVD (cardiovascular disease) Stroke Maternal Uncle Heart disease Paternal Uncle Bone cancer Lung cancer Social History Social History Household Members: Significant Other Housing: Apartment Are you a primary patient care technician instructor to a significant other at home: No Do you presently have visiting nurse or other home services: No Alcohol intake: current Alcohol intake frequency: a few times a month Patient Tobacco Use Status: Never used Tobacco e-Cigarette/Vaping Use: Never Used Second Hand Smoke Exposure: No Advance Directives: No Advance Directives Information Provided: No service: No Current occupational status: disabled Current occupational exposures/hazards: No Physical Exam ED Vital Signs: Vital Signs - 24 hr 04/23/22 11:01 Temperature 96.6 F L Pulse Rate 88 Respiratory Rate 18 Blood Pressure 147/109 H Pulse Oximetry 98 Oxygen Delivery Method Room Air BMI result Body Mass Index 31.4 Const General: cooperative, no acute distress, alert and awake Nutritional Appearance: well nourished Orientation/consciousness: patient oriented x3 Limitations: no limitations HENMT Head: Yes normal to inspection and Yes atraumatic Ears: hearing grossly normal bilaterally and external ears normal General nose exam: Normal external nose present, no nasal discharge noted and no epistaxis Face and sinus: Yes normal facial exam, No abrasion and No laceration Mouth: Normal oral and palatal mucosa present, no drooling and no muffled voice Eyes General: appearance normal, both eyes and all related structures Periorbital: periorbital findings normal Eyelids: Yes eyelids normal Conjunctivae: conjunctivae normal Pupils: Equal, round and reactive pupils present EOM: EOMs intact bilaterally Neck Neck: Yes normal visual inspection, Yes full ROM and Yes no lymphadenopathy Chest Chest palpation & inspection: normal inspection of the chest Resp Effort & Inspection: normal respiratory effort and able to speak in complete sentences Auscultation: clear to auscultation bilaterally Cardio Rate: regular rate Rhythm: regular rhythm GI Inspection: Yes normal to inspection Skin Other: rash present to the right dorsal wrist, left dorsal hand, and left eye lid Neuro General: patient oriented x3 and moves all extremities Cranial nerves: Yes Equal, round and reactive pupils present Cognition (Neuro): normal cognition Motor exam (neuro): 5/5 motor strength present throughout Sensory Exam: Normal double simultaneous stimulation for sensation Coordination: [id number] test normal Extrem General: Yes normal to inspection, Yes full ROM and Yes capillary refill normal Psych Appearance: grossly normal Mental Status: mental status grossly normal Affect: normal affect Attitude: cooperative Thought process: Normal thought process present Thought content: Normal thought content present Insight: Good insight present (Psych) Medical Decision Making MDM Narrative Medical decision making narrative: Patient is a 52 year old male presenting to the emergency department today with worsening contact dermatitis. Patient's physical exam showed a rash to the right dorsal wrist, left dorsal hand, and left eye lid. No eye involvement outside of the lid. I explained my physical exam findings to the patient. I answered all questions asked by the patient. Patient received IM Solu-Medrol which he stated helped his symptoms significantly. I stressed the importance of the patient taking his medication as prescribed. I stressed the importance of the patient following up with his primary care provider and if symptoms persist, a security system administrator. I stressed the importance of the patient returning to the emergency department immediately if his symptoms were to worsen or if he were to develop any dizziness, shortness of breath, difficulty breathing, chest pain, blurry vision, loss of vision, nausea, vomiting, abdominal pain, fever, chills, back pain, or any other complaints. Patient verbalized agreement and under standing with this treatment plan and discharge. Differential Diagnosis Differential Diagnosis: contact dermatitis Medical Records Medical records reviewed: Yes I reviewed the patient's medical records. Discharge Plan Discharge Clinical Impression: Allergic contact dermatitis due to plant Patient Disposition: Home, Self-Care Instructions: Contact Dermatitis (ED) Additional Instructions: Follow up with your primary care provider and if symptoms persist, a security system administrator. Return to the emergency department immediately if your symptoms worsen or if you develop any dizziness, shortness of breath, difficulty breathing, chest pain, blurry vision, loss of vision, nausea, vomiting, abdominal pain, fever, chills, back pain, or any other complaints. Prescriptions: New prednisone 20 mg tablet 20 mg PO DAILY 12 Days Qty: 26 0RF Rx Instructions: Take 3 tablets for 5 days THEN; Take 2 tablets for 4 days THEN; Take 1 tablet for 3 days No Action diclofenac sodium [Voltaren Arthritis Pain] 1 % gel 4 g topical QID Qty: 100 3RF Rx Instructions: apply to single knee, ankle, foot; for foot includes sole/toes/top of foot fluticasone propionate 50 mcg/actuation spray,suspension 2 spray intranasal DAILY Qty: 48 4RF cetirizine 10 mg tablet 10 mg PO DAILY Qty: 90 3RF albuterol sulfate [ProAir HFA] 90 mcg/actuation HFA aerosol inhaler 2 puff inhalation Q6H PRN (Reason: shortness of breath or wheezing) Qty: 8.5 0RF simvastatin 10 mg tablet 10 mg PO BEDTIME 90 Days Qty: 90 2RF Pulmicort Flexhaler 90 mcg/actuation aerosol powdr breath activated 2 inh inhalation BID Qty: 1 11RF meloxicam 15 mg tablet 15 mg PO DAILY Qty: 30 2RF hydrocortisone 2.5 % cream 1 appl topical BID PRN (Reason: itching) Qty: 20 0RF quetiapine [Seroquel] 200 mg tablet 200 mg PO BEDTIME mirtazapine 15 mg tablet 15 mg PO BEDTIME Referrals: [facility] [Provider Group] (Call to establish and follow up with a security system administrator. ) Allyn Fitzgerald MD [Primary Care Provider] - Print Language: Azeri
[2022-04-23] MEDS: methylPREDNISolone Sod Succ 125 MG/2 ML VIAL 60 MG IM (11:27)
== END 2022-04-23 11:34 | disposition home or self-care (01) ==
LOC: HO.ED 11:24
PROVIDERS: Emergency Provider Emergency Medicine; PCP Internal Medicine
DX: L23.7 Allergic contact dermatitis due to plants, except food (principal); Z79.899 Other long term (current) drug therapy
CPT/HCPCS: 96372; 99282; 99284; J2930

== ENCOUNTER 2022-11-06 07:53 | Outpatient (REF) | payer OTHER, SELFPAY ==
[2022-11-06 08:01] LABS: MANUAL DIFF FLAG NO
[2022-11-06 08:28] LABS: Basophils Absolute Auto 0.1 X10*3/uL (0.0-0.2); Basophils Percent Auto 0.6 % (0-2); Eosinophils Absolute Auto 0.5 X10*3/uL (0.0-0.4); Eosinophils Percent Auto 6.3 % (0-4); Hematocrit 42.8 % (42.0-52.0); Hemoglobin 14.2 g/dl (14.0-18.0); Imm Gran Abs Auto 0.04 X10*3/uL (0.00-0.03); Imm Gran Pct Auto 0.5 % (0.0-0.4); Immature Retic Fraction 19.1 % (2.3-13.4); Lymphocytes Absolute Auto 3.6 X10*3/uL (1.2-4.9); Lymphocytes Percent Auto 45.4 % (20-40); Mean Corpuscular HGB Conc 33.2 g/dl (31.0-36.0); Mean Corpuscular Hemoglobin 30.5 pg (27.0-33.0); Mean Platelet Volume 11.2 fL (9.4-12.4); Monocytes Absolute Auto 0.8 X10*3/uL (0.1-1.2); Monocytes Percent Auto 10.3 % (2-11); Neutrophils Absolute Auto 2.9 x10*3/uL (2.0-8.3); Neutrophils Percent Auto 36.9 % (45-73); Platelet Count 223 X10*3/uL (160-400); Red Blood Count 4.65 X10*6/uL (4.60-5.80); Red Cell Distribution Width 13.3 % (11.0-16.0); Retic HGB Equivalent 35.3 pg (30.0-35.0); Reticulocyte Percent 1.9 % (0.5-1.8); Reticulocytes Absolute 0.089 X10*6/uL (0.026-0.095); White Blood Count 7.8 X10*3/uL (4.8-10.8)
[2022-11-06 08:39] LABS: Estimated Average Glucose 143 mg/dL; Hemoglobin A1c % 6.6 %
[2022-11-06 09:57] LABS: Ferritin 516 ng/mL (20-250); Free T4 (Free Thyroxine) 0.88 ng/dL (0.71-1.85); Prostate Specific Antigen Scr 0.63 ng/mL (<0.05-4.0); Thyroid Stimulating Hormone 1.51 uIU/mL (0.32-4.0); Vitamin B12 568 pg/mL (200-900)
[2022-11-06 11:50] LABS: Alanine Aminotransferase 74 U/L (0-40); Albumin Level 4.4 g/dL (3.5-5.0); Alkaline Phosphatase 65 U/L (39-117); Anion Gap 14 (12-20); Aspartate Amino Transferase 31 U/L (5-37); Bilirubin Total 0.3 mg/dL (0.0-1.0); Blood Urea Nitrogen 19 mg/dL (9-16); Calcium 9.4 mg/dL (8.4-10.2); Carbon Dioxide 26 mmol/L (22-29); Chloride 103 mmol/L (96-108); Cholesterol 211 mg/dL; Estimated Glomerular Filt Rate 60; Glucose Random 127 mg/dL (60-115); HDL Cholesterol 41 mg/dL; Iron 71 mcg/dL (45-160); Percent Iron Saturation 20 % (15-50); Potassium 3.9 mmol/L (3.3-5.1); Sodium 139 mmol/L (135-145); Total Iron Binding Capacity 350 mcg/dL (228-428); Total Protein 7.2 g/dL (6.5-8.0); Triglycerides 443 mg/dL; Unsaturated Iron Binding 279 ug/dL
== END 2022-11-06 07:54 | disposition home or self-care (01) ==
LOC: HO.LAB 07:53
PROVIDERS: PCP Internal Medicine; Visit Provider Internal Medicine
DX: R79.89 Other specified abnormal findings of blood chemistry (principal); E78.00 Pure hypercholesterolemia, unspecified; R73.01 Impaired fasting glucose
CPT/HCPCS: 36415; 80053; 80061; 82607; 82728; 82746; 83036; 83540; 84153; 84439; 84443; 85025; 85045

== ENCOUNTER 2023-02-16 08:18 | Outpatient (REF) | payer OTHER, SELFPAY | END 2023-02-16 08:19 | disposition home or self-care (01) | LOC: HO.LAB 08:18 | PROVIDERS: PCP Internal Medicine; Visit Provider Internal Medicine | DX: E11.65 Type 2 diabetes mellitus with hyperglycemia (principal); K76.0 Fatty (change of) liver, not elsewhere classified; E78.00 Pure hypercholesterolemia, unspecified | CPT/HCPCS: 36415; 80053; 80061; 82043; 82728; 83036 ==

== ENCOUNTER 2023-02-28 11:01 | Outpatient (AMB) | payer OTHER, SELFPAY ==
[2023-02-28 11:16] VITALS: BP 120/68; PULSE 77; O2SAT 96; BMI 31.8
--- NOTE | 2023-02-28 11:16 | A.OFFPC_ITS ---
Vital Signs 02/28/23 11:16 Height 5 ft 2 in Weight 174 lb BMI 31.8 BP 120/68 Blood Pressure Location Lt brachial Position Sitting Pulse 77 Pulse Source Pulse Oximeter Pulse Oximetry (%) 96 Oxygen Delivery Method Room Air Intake Visit Reasons: 3 month f/u Allergies Penicillins [PENICILLINS] Allergy (Intermediate, Verified 02/28/23 11:16) STOMACH UPSET Medication List - Last Reconciled 02/28/23 by Allyn Fitzgerald MD albuterol sulfate 90 mcg/actuation (Ventolin HFA) 2 puffs inhalation Q6H PRN blood pressure monitor (Blood Pressure Kit) As directed budesonide-formoterol 160-4.5 mcg/actuation (Symbicort) 2 puffs inhalation BID cetirizine 10 mg PO DAILY diclofenac sodium 1% (Voltaren Arthritis Pain) 4 grams topical QID fluticasone propionate 50 mcg/actuation 2 sprays intranasal DAILY hydrochlorothiazide 25 mg PO DAILY hydrocortisone 2.5% 1 appl topical BID PRN mirtazapine 15 mg PO BEDTIME quetiapine (Seroquel) 200 mg PO BEDTIME simvastatin 10 mg PO BEDTIME 90 days Tobacco use date assessed: 09/05/22 Dental Screening Dental Screen Date: 02/28/23 Did you have a dental visit in the last 12 months?: No Did you have a dental problem in the last 6 months where you did not have access to dental care?: No Was dental information given to patient?: No HPI 3 month f/u HPI Details 53-year-old obese male with diabetes mellitus asthma hypertension GERD hypercholesterolemia generalized anxiety disorder fatty liver and an elevated ferritin level last seen in November 2022 hemoglobin A1c was controlled at that time and last cholesterol test was February 2023. Shunt is here for follow-up. C olonoscopy is up-to-date November 2021 with elevated ferritin level patient was sent to hematology oncology hemochromatosis workup was negative was on iron supplementation before but has top since. Patient states occ palpitations- PFSH Medical History (Updated 01/26/23 @ 09:13 by Virginie Young MD) Anemia Anemia Asthma Attention deficit disorder Chronic back pain Colon cancer screening COVID-19 vaccine series completed Desensitization to allergy shot Elevated ferritin level Fatty liver History of renal calculi Hypercholesterolemia Impaired fasting glucose Numbness of left hand Overweight (BMI 25.0-29.9) Radicular pain in left arm Vitamin B12 deficiency Vitamin D deficiency Surgical History H/O colonoscopy History of ear surgery History of nasal surgery Family History Father Prostate cancer Bone cancer Brain cancer Mother CVD (cardiovascular disease) Stroke Maternal Uncle Heart disease Paternal Uncle Bone cancer Lung cancer Sister Lung cancer Bipolar 1 disorder Social History Household Members: Significant Other Housing: Apartment Are you a primary ambulatory care coordinator to a significant other at home: No Do you presently have visiting nurse or other home services: No Alcohol intake: current Alcohol intake frequency: a few times a month Patient Tobacco Use Status: Never used Tobacco e-Cigarette/Vaping Use: Never Used Second Hand Smoke Exposure: No service: No Current occupational status: disabled Current occupational exposures/hazards: No Cognitive needs: No Hearing needs: No Vision needs: Yes Questionnaire PHQ-9 Over the last 2 weeks, how often have you been bothered by any of the following problems? 1. Little interest or pleasure in doing things: not at all 2. Feeling down, depressed, or hopeless: not at all 3. Trouble falling or staying asleep, or sleeping too much: not at all 4. Feeling tired or having little energy: not at all 5. Poor appetite or overeating: not at all 6. Feeling bad about yourself - or that you are a failure or have let yourself or your family down: not at all 7. Trouble concentrating on things, such as reading the newspaper or watching television: not at all 8. Moving or speaking so slowly that other people could have noticed. Or the opposite - being so fidgety or restless that you have been moving around a lot more than usual: not at all 9. Thoughts that you would be better off or of hurting yourself in some way: not at all Total score: 0 Depression Screening Interpretation: Negative Source: Developed by Drs. Farshad Gimenez, Anna Marie Denis, Balwinder Coffey and colleagues, with an educational aliyah from [employer] Thrive Questionnaire Date Thrive assessed: 09/05/22 AUDIT C Alcohol Use Questionnaire (AUDIT-C) 1. How often do you have a drink containing alcohol?: 2-4 times a month 2. How many drinks containing alcohol do you have on a typical day when you are drinking?: 3 or 4 3. How often do you have six or more drinks on one occasion?: Never Total Score: 3 ANAT-7 AMB Questionnaire ANAT-7 Date ANAT - 7 assessed: 09/05/22 Source: Developed by Drs. Farshad Gimenez, Anna Marie Denis, Balwinder Coffey and colleagues, with an educational aliyah from [employer] Physical exam (Primary Care) Vital Signs: Last Vital Signs Pulse 77 02/28/23 11:16 BP 120/68 02/28/23 11:16 Pulse Ox 96 02/28/23 11:16 Oxygen Delivery Method Room Air 02/28/23 11:16 BMI result Body Mass Index 31.8 Tobacco/Smoking Status: Tobacco use Status Tobacco use date assessed 09/05/22 02/28/23 11:20 Patient Tobacco Use Status Never used Tobacco 02/28/23 11:20 e-Cigarette/Vaping Use Never Used 02/28/23 11:20 PHQ-9: PHQ-9 Score PHQ-9: Total score 0 02/28/23 11:20 Depression Screening Interpretation: Negative Thrive Assessment: Date of Thrive Assessment Date Thrive assessed 09/05/22 02/28/23 11:20 Const General: alert; No acute distress Eyes Conjunctivae: conjunctivae normal Resp Auscultation: clear to auscultation bilaterally Cardio Rate: regular rate Rhythm: regular rhythm GI Inspection: Yes normal to inspection Extrem General: Yes normal to inspection and No edema Assessment and Plan Assessment & Plan (1) Type 2 diabetes mellitus with hyperglycemia: Code(s): E11.65 - Type 2 diabetes mellitus with hyperglycemia Plan: Decrease the amount of carbohydrate intake, pasta, bread, rice and potatoes are all sugar and that is aside from all the sweet stuff, remember that fruits are good but they are Sweet also. Hemoglobin A1c goal of less than 6.5 patient is presently on diet control (2) GERD (gastroesophageal reflux disease): Code(s): K21.9 - Gastro-esophageal reflux disease without esophagitis Plan: Avoid the foods that causes that usually spicy foods, tomato products, juices, coffee, soda and foods that your sensitive to. After eating do not lie down, allow 3-4 hours before in lie down. And keep the head of bed above 30 degrees to avoid the acid from going up. (3) Hypertension: Code(s): I10 - Essential (primary) hypertension Plan: Continue with blood pressure medication. Decrease salt intake and exercise patient on hydrochlorothiazide 25 mg once a day. change med to CJ inhibitor to protect kidney (4) Generalized anxiety disorder: Comment: Psychiatrist Dr. Presley in [address] Q month- 2 months therapist seen Q O week Code(s): F41.1 - Generalized anxiety disorder Plan: Continue with counseling and psychiatry (5) Obesity (BMI 30-39.9): Code(s): E66.9 - Obesity, unspecified Plan: Diet and exercise (6) Elevated ferritin level: Code(s): R79.89 - Other specified abnormal findings of blood chemistry Plan: Patient is being followed up by hematology oncology and numbers are stable (7) Asthma: Comment: stable-uses Pulmicort inhaler daily Code(s): J45.909 - Unspecified asthma, uncomplicated Plan: Continue with inhaler as needed. using the controller regularly. controlled (8) Hypercholesterolemia: Code(s): E78.00 - Pure hypercholesterolemia, unspecified Plan: Avoid fried foods, chicken skin, eggs, butter margarine, pastries and meat. Be it pork or beef they have a lot of cholesterol LDL goal of less than 100 and triglyceride of less than 150 patient is on simvastatin 10 mg once a day Medications: New lisinopril 5 mg PO DAILY 30 tabs 3RF I10 - Essential (primary) hypertension Refilled cetirizine 10 mg PO DAILY 90 tabs 3RF I10 - Essential (primary) hypertension Discontinued hydrochlorothiazide Discontinued Reason: Doctor's Order 25 mg PO DAILY 30 tabs 5RF I10 - Essential (primary) hypertension Coding Level of Care Code Est Pt Level 4 (29550) Diagnoses Type 2 diabetes mellitus with hyperglycemia E11.65 GERD (gastroesophageal reflux disease) K21.9 Hypertension I10 Generalized anxiety disorder F41.1 Obesity (BMI 30-39.9) E66.9 Elevated ferritin level R79.89 Asthma J45.909 Hypercholesterolemia E78.00
== END 2023-02-28 12:09 | disposition home or self-care (01) ==
PROVIDERS: PCP Internal Medicine; Visit Provider Internal Medicine
DX: E11.65 Type 2 diabetes mellitus with hyperglycemia (principal); K21.9 Gastro-esophageal reflux disease without esophagitis; I10 Essential (primary) hypertension; J45.909 Unspecified asthma, uncomplicated; F41.1 Generalized anxiety disorder; E66.9 Obesity, unspecified; R79.89 Other specified abnormal findings of blood chemistry; E78.00 Pure hypercholesterolemia, unspecified
CPT/HCPCS: 99214

== ENCOUNTER 2023-05-28 12:42 | Outpatient (AMB) | payer OTHER, SELFPAY ==
[2023-05-28 12:46] VITALS: BP 140/86; PULSE 82; O2SAT 99; BMI 32.2
--- NOTE | 2023-05-28 12:46 | A.OFFPC_ITS ---
Vital Signs 05/28/23 12:46 Height 5 ft 2 in Weight 176 lb 0.8 oz BMI 32.2 BP 140/86 H Blood Pressure Location Lt brachial Position Sitting Pulse 82 Pulse Source Pulse Oximeter Pulse Oximetry (%) 99 Oxygen Delivery Method Room Air Intake Visit Reasons: 3 month f/u Allergies Penicillins [PENICILLINS] Allergy (Intermediate, Verified 02/28/23 11:16) STOMACH UPSET Tobacco use date assessed: 05/28/23 Dental Screening Dental Screen Date: 05/28/23 Did you have a dental visit in the last 12 months?: No Did you have a dental problem in the last 6 months where you did not have access to dental care?: No HPI 3 month f/u HPI Details 53-year-old obese male with controlled d iabetes mellitus GERD hypertension Madyson anxiety disorder hyper cholesterolemia and asthma last seen in February 2023 patient is up-to-date with colonoscopy. PAtient states BP at times is hypotenstive but states has been hacing nape pain . controlled with the inhalers aknows to rinse PFSH Medical History (Updated 01/26/23 @ 09:13 by Virginie Young MD) COVID-19 vaccine series completed Elevated ferritin level Anemia Colon cancer screening Numbness of left hand Radicular pain in left arm Desensitization to allergy shot Attention deficit disorder History of renal calculi Impaired fasting glucose Vitamin B12 deficiency Vitamin D deficiency Overweight (BMI 25.0-29.9) Fatty liver Asthma Chronic back pain Anemia Hypercholesterolemia Surgical History H/O colonoscopy History of nasal surgery History of ear surgery Family History Father Prostate cancer Bone cancer Brain cancer Mother CVD (cardiovascular disease) Stroke Maternal Uncle Heart disease Paternal Uncle Bone cancer Lung cancer Sister Lung cancer Bipolar 1 disorder Social History Household Members: Significant Other Housing: Apartment Are you a primary pharmacist critical care to a significant other at home: No Do you presently have visiting nurse or other home services: No Alcohol intake: current Alcohol intake frequency: a few times a month Patient Tobacco Use Status: Never used Tobacco e-Cigarette/Vaping Use: Never Used Second Hand Smoke Exposure: No service: No Current occupational status: disabled Current occupational exposures/hazards: No Cognitive needs: No Hearing needs: No Vision needs: Yes Questionnaire Thrive Questionnaire Date Thrive assessed: 09/05/22 AUDIT C Alcohol Use Questionnaire (AUDIT-C) 1. How often do you have a drink containing alcohol?: 2-4 times a month 2. How many drinks containing alcohol do you have on a typical day when you are drinking?: 3 or 4 3. How often do you have six or more drinks on one occasion?: Never Total Score: 3 ANAT-7 AMB Questionnaire ANAT-7 Date ANAT - 7 assessed: 09/05/22 Source: Developed by Drs. Farshad Gimenez, Anna Marie Denis, Balwinder Coffey and colleagues, with an educational aliyah from [employer]. Physical exam (Primary Care) Vital Signs: Last Vital Signs Pulse 82 05/28/23 12:46 BP 140/86 H 05/28/23 12:46 Pulse Ox 99 05/28/23 12:46 Oxygen Delivery Method Room Air 05/28/23 12:46 BMI result Body Mass Index 32.2 Tobacco/Smoking Status: Tobacco use Status Tobacco use date assessed 05/28/23 05/28/23 12:52 Patient Tobacco Use Status Never used Tobacco 05/28/23 12:52 e-Cigarette/Vaping Use Never Used 05/28/23 12:52 Thrive Assessment: Date of Thrive Assessment Date Thrive assessed 09/05/22 05/28/23 12:52 Const General: alert; No acute distress Eyes Conjunctivae: conjunctivae normal Resp Auscultation: clear to auscultation bilaterally Cardio Rate: regular rate Rhythm: regular rhythm GI Inspection: Yes normal to inspection Extrem General: Yes normal to inspection and No edema Office Procedures Flu Questionnaire Does the patient have a severe egg allergy?: No Does the patient have severe life threatening allergies?: No Does the patient have a fever or illness today?: No Has the patient ever had Guillain-[place] Syndrome?: No Has the patient ever had any past reaction to a flu shot?: No Results AMB Hemoglobin A1c AMB Hemoglobin A1c 6.2 % Last Edit by ROCKY Jameson on 05/28/23 12:59 Immunizations flu vacc [id number] 6mos up(PF) 60 mcg(15 mcgx4)/0.5 mL IM syringe Performing Provider: Allyn Fitzgerald MD Per[facility] [place] [facility] Administered by: ROCKY Jameson on 05/28/23 12:59 Dose Route Admin Location Dispensed Lot Number Expiration Date NDC Pipe [employer] 0.5 mL IM Left Deltoid 0.5 mL [id number] 02/10/24 [id number] [employer] VIS Given Date VIS Provided VIS Publication Date 05/28/23 Single Vaccine 21 Eligibility Eligibility Date Funding Source Not [facility] Eligible 05/28/23 Private Results Reviewed Results Reviewed: Laboratory Last Values Hgb A1c (Clinic) 6.2 % (4.0-6.0) H 05/28/23 12:32 Assessment and Plan Assessment & Plan (1) Obesity (BMI 30-39.9): Code(s): E66.9 - Obesity, unspecified Plan: Diet and exercise (2) Hypercholesterolemia: Code(s): E78.00 - Pure hypercholesterolemia, unspecified Plan: Avoid fried foods, chicken skin, eggs, butter margarine, pastries and meat. Be it pork or beef they have a lot of cholesterol February 2023 last blood work LDL goal of less than 100 and triglyceride of less than 150. Patient is on simvastatin 10 mg at bedtime (3) Type 2 diabetes mellitus with hyperglycemia: Code(s): E11.65 - Type 2 diabetes mellitus with hyperglycemia Plan: Decrease the amount of carbohydrate intake, pasta, bread, rice and potatoes are all sugar and that is aside from all the sweet stuff, remember that fruits are good but they are Sweet also. Hemoglobin A1c goal of less than 6.5 patient is diet control (4) GERD (gastroesophageal reflux disease): Code(s): K21.9 - Gastro-esophageal reflux disease without esophagitis Plan: Avoid the foods that causes that usually spicy foods, tomato products, juices, coffee, soda and foods that your sensitive to. After eating do not lie down, allow 3-4 hours before in lie down. And keep the head of bed above 30 degrees to avoid the acid from going up. (5) Hypertension: Code(s): I10 - Essential (primary) hypertension Plan: Continue with blood pressure medication. Decrease salt intake and exercise patient on lisinopril 5 mg once a day (6) Generalized anxiety disorder: Comment: Psychiatrist Dr. Presley in [address] Q month- 2 months therapist seen Q O week Code(s): F41.1 - Generalized anxiety disorder Plan: Continue with counseling and therapy Orders: Orders AMB Hemoglobin A1c Today E11.65 - Type 2 diabetes mellitus with hyperglycemia Influenza [id number] Immunization Today Z23 - Encounter for immunization Coding Level of Care Code Est Pt Level 4 (78855) Diagnoses Obesity (BMI 30-39.9) E66.9 Hypercholesterolemia E78.00 Type 2 diabetes mellitus with hyperglycemia E11.65 GERD (gastroesophageal reflux disease) K21.9 Hypertension I10 Generalized anxiety disorder F41.1
== END 2023-05-28 13:39 | disposition home or self-care (01) ==
PROVIDERS: PCP Internal Medicine; Visit Provider Internal Medicine
DX: Z23 Encounter for immunization (principal); E11.65 Type 2 diabetes mellitus with hyperglycemia
CPT/HCPCS: 83036; 90471; 90686; 99214

== ENCOUNTER 2023-09-04 14:48 | Outpatient (AMB) | payer OTHER, SELFPAY ==
[2023-09-04 14:52] VITALS: BP 134/82; PULSE 77; O2SAT 98; BMI 31.1
--- NOTE | 2023-09-04 14:52 | A.OFFPC_ITS ---
Vital Signs 09/04/23 14:52 Height 5 ft 2 in Weight 170 lb BMI 31.1 BP 134/82 Blood Pressure Location Lt brachial Position Sitting Pulse 77 Pulse Source Pulse Oximeter Pulse Oximetry (%) 98 Oxygen Delivery Method Room Air Intake Visit Reasons: DM Manager [employer] Required: No Allergies Penicillins [PENICILLINS] Allergy (Intermediate, Verified 09/04/23 14:52) STOMACH UPSET Medication List - Last Reconciled 09/04/23 by Allyn Fitzgerald MD albuterol sulfate 90 mcg/actuation (Ventolin HFA) 2 puffs inhalation Q6H PRN blood pressure monitor (Blood Pressure Kit) As directed budesonide-formoterol 160-4.5 mcg/actuation (Symbicort) 2 puffs inhalation BID cetirizine 10 mg PO DAILY diclofenac sodium 1% (Voltaren Arthritis Pain) 4 grams topical QID fluticasone propionate 50 mcg/actuation 2 sprays intranasal DAILY hydrocortisone 2.5% 1 appl topical BID PRN lisinopril 5 mg PO DAILY mirtazapine 15 mg PO BEDTIME quetiapine (Seroquel) 200 mg PO BEDTIME simvastatin 10 mg PO BEDTIME 90 days Tobacco use date assessed: 09/04/23 Dental Screening Dental Screen Date: 09/04/23 Did you have a dental visit in the last 12 months?: No Did you have a dental problem in the last 6 months where you did not have access to dental care?: No HPI DM HPI Details 53-year-old obese male with diabetes mame litus hypercholesterolemia GERD hypertension and generalized anxiety disorder last seen in May 2023. Vitaly fritz is here today for follow-up. Colonoscopy last done November 2021. Patient follows up with Hematology-Oncology regarding elevated ferritin. Hemochromatosis workup negative continue to monitor [facility] Medical History (Updated 09/04/23 @ 15:30 by Allyn Fitzgerald MD) COVID-19 vaccine series completed Elevated ferritin level Anemia Colon cancer screening Numbness of left hand Radicular pain in left arm Desensitization to allergy shot Attention deficit disorder History of renal calculi Impaired fasting glucose Vitamin B12 deficiency Vitamin D deficiency Overweight (BMI 25.0-29.9) Fatty liver Asthma Chronic back pain Anemia Hypercholesterolemia Surgical History H/O colonoscopy History of nasal surgery History of ear surgery Family History Father Prostate cancer Bone cancer Brain cancer Mother CVD (cardiovascular disease) Stroke Maternal Uncle Heart disease Paternal Uncle Bone cancer Lung cancer Sister Lung cancer Bipolar 1 disorder Social History Household Members: Significant Other Housing: Apartment Are you a primary vp care management to a significant other at home: No Do you presently have visiting nurse or other home services: No Alcohol intake: current Alcohol intake frequency: a few times a month Patient Tobacco Use Status: Never used Tobacco e-Cigarette/Vaping Use: Never Used Second Hand Smoke Exposure: No service: No Current occupational status: disabled Current occupational exposures/hazards: No Cognitive needs: No Hearing needs: No Vision needs: Yes Questionnaire Thrive Questionnaire Date Thrive assessed: 09/05/22 AUDIT C Alcohol Use Questionnaire (AUDIT-C) 1. How often do you have a drink containing alcohol?: 2-4 times a month 2. How many drinks containing alcohol do you have on a typical day when you are drinking?: 3 or 4 3. How often do you have six or more drinks on one occasion?: Never Total Score: 3 ANAT-7 AMB Questionnaire ANAT-7 Date ANAT - 7 assessed: 09/04/23 Source: Developed by Drs. Farshad Gimenez, Anna Marie Denis, Balwinder Coffey and colleagues, with an educational aliyah from [facility]. Physical exam (Primary Care) Vital Signs: Last Vital Signs Pulse 77 09/04/23 14:52 BP 134/82 09/04/23 14:52 Pulse Ox 98 09/04/23 14:52 Oxygen Delivery Method Room Air 09/04/23 14:52 BMI result Body Mass Index 31.1 Tobacco/Smoking Status: Tobacco use Status Tobacco use date assessed 09/04/23 09/04/23 14:53 Patient Tobacco Use Status Never used Tobacco 09/04/23 14:53 e-Cigarette/Vaping Use Never Used 09/04/23 14:53 Thrive Assessment: Date of Thrive Assessment Date Thrive assessed 09/05/22 09/04/23 14:53 Const General: alert; No acute distress Eyes Conjunctivae: conjunctivae normal Resp Auscultation: clear to auscultation bilaterally Cardio Rate: regular rate Rhythm: regular rhythm GI Inspection: Yes normal to inspection Extrem General: Yes normal to inspection and No edema Results AMB Hemoglobin A1c AMB Hemoglobin A1c 6.1 % Last Edit by ROCKY Jameson on 09/04/23 15:03 Results Reviewed Results Reviewed: Laboratory Last Values Hgb A1c (Clinic) 6.1 % (4.0-6.0) H 09/04/23 14:37 Assessment and Plan Assessment & Plan (1) Type 2 diabetes mellitus with hyperglycemia: Comment: dr. Green Code(s): E11.65 - Type 2 diabetes mellitus with hyperglycemia Plan: Decrease the amount of carbohydrate intake, pasta, bread, rice and potatoes are all sugar and that is aside from all the sweet stuff, remember that fruits are good but they are Sweet also. Hemoglobin A1c goal of less than 6.5. Patient is diet controlled (2) GERD (gastroesophageal reflux disease): Code(s): K21.9 - Gastro-esophageal reflux disease without esophagitis Plan: Avoid the foods that causes that usually spicy foods, tomato products, juices, coffee, soda and foods that your sensitive to. After eating do not lie down, allow 3-4 hours before in lie down. And keep the head of bed above 30 degrees to avoid the acid from going up. (3) Hypertension: Code(s): I10 - Essential (primary) hypertension Plan: Continue with blood pressure medication. Decrease salt intake and exercise continue with lisinopril 5 mg once a day (4) Generalized anxiety disorder: Comment: Psychiatrist Dr. Presley in [address] Q month- 2 months therapist seen Q O week Code(s): F41.1 - Generalized anxiety disorder Plan: Continue with counseling and therapy on Seroquel mirtazapine (5) Obesity (BMI 30-39.9): Code(s): E66.9 - Obesity, unspecified Plan: Diet and exercise (6) Hypercholesterolemia: Code(s): E78.00 - Pure hypercholesterolemia, unspecified Plan: Avoid fried foods, chicken skin, eggs, butter margarine, pastries and meat. Be it pork or beef they have a lot of cholesterol LDL goal of less than 100 and triglyceride of less than 150. Patient on simvastatin 10 mg once a day Orders: Orders AMB Hemoglobin A1c Today E11.65 - Type 2 diabetes mellitus with hyperglycemia Medications: New gabapentin 100 mg PO BEDTIME 30 caps 1RF E11.65 - Type 2 diabetes mellitus with hyperglycemia Coding Level of Care Code Est Pt Level 4 (47961) Diagnoses Type 2 diabetes mellitus with hyperglycemia E11.65 GERD (gastroesophageal reflux disease) K21.9 Hypertension I10 Generalized anxiety disorder F41.1 Obesity (BMI 30-39.9) E66.9 Hypercholesterolemia E78.00
== END 2023-09-04 15:42 | disposition home or self-care (01) ==
PROVIDERS: PCP Internal Medicine; Visit Provider Internal Medicine
DX: E11.65 Type 2 diabetes mellitus with hyperglycemia (principal); K21.9 Gastro-esophageal reflux disease without esophagitis; I10 Essential (primary) hypertension; F41.1 Generalized anxiety disorder; E78.00 Pure hypercholesterolemia, unspecified
CPT/HCPCS: 83036; 99214

== ENCOUNTER 2023-09-17 12:27 | Outpatient (AMB) | payer OTHER, SELFPAY ==
[2023-09-17 12:31] VITALS: BP 124/68; PULSE 79; O2SAT 98; BMI 31.8
--- NOTE | 2023-09-17 12:31 | A.OFFPC_ITS ---
Vital Signs 09/17/23 12:31 Height 5 ft 2 in Weight 174 lb BMI 31.8 BP 124/68 Blood Pressure Location Lt brachial Position Sitting Pulse 79 Pulse Source Pulse Oximeter Pulse Oximetry (%) 98 Oxygen Delivery Method Room Air Intake Visit Reasons: Annual Exam Allergies Penicillins [PENICILLINS] Allergy (Intermediate, Verified 09/17/23 12:32) STOMACH UPSET Medication List - Last Reconciled 09/17/23 by Allyn Fitzgerald MD albuterol sulfate 90 mcg/actuation (Ventolin HFA) 2 puffs inhalation Q6H PRN blood pressure monitor (Blood Pressure Kit) As directed budesonide-formoterol 160-4.5 mcg/actuation (Symbicort) 2 puffs inhalation BID cetirizine 10 mg PO DAILY diclofenac sodium 1% (Voltaren Arthritis Pain) 4 grams topical QID fluticasone propionate 50 mcg/actuation 2 sprays intranasal DAILY gabapentin 100 mg PO BEDTIME hydrocortisone 2.5% 1 appl topical BID PRN lisinopril 5 mg PO DAILY mirtazapine 15 mg PO BEDTIME quetiapine (Seroquel) 200 mg PO BEDTIME simvastatin 10 mg PO BEDTIME 90 days Tobacco use date assessed: 09/04/23 Dental Screening Dental Screen Date: 09/17/23 Did you have a dental visit in the last 12 months?: No Did you have a dental problem in the last 6 months where you did not have access to dental care?: No Was dental information given to patient?: No HPI Annual Exam HPI Details 53-year-old obese male with diabetes mame litus GERD hypertension generalized anxiety disorder hypercholesterolemia last seen in August 2023 patient is here for physical exam. Colonoscopy up-to-date November 2021 2 months have seperated with girlfriend [facility] Medical History (Updated 09/17/23 @ 13:04 by Allyn Fitzgerald MD) COVID-19 vaccine series completed Elevated ferritin level Anemia Colon cancer screening Numbness of left hand Radicular pain in left arm Desensitization to allergy shot Attention deficit disorder History of renal calculi Impaired fasting glucose Vitamin B12 deficiency Vitamin D deficiency Overweight (BMI 25.0-29.9) Fatty liver Asthma Chronic back pain Anemia Hypercholesterolemia Surgical History H/O colonoscopy History of nasal surgery History of ear surgery Family History (Updated 09/17/23 @ 12:50 by Allyn Fitzgerald MD) Father Bone cancer Brain cancer Mother CVD (cardiovascular disease) Stroke Maternal Uncle Heart disease Paternal Uncle Bone cancer Lung cancer Sister Lung cancer Bipolar 1 disorder Other Prostate cancer Social History (Updated 09/17/23 @ 12:51 by Allyn Fitzgerald MD) Household Members: Significant Other Housing: Apartment Are you a primary weekend caregiver to a significant other at home: No Do you presently have visiting nurse or other home services: No Alcohol intake: current Alcohol intake frequency: a few times a month Comment: once a week 2-3 beers Patient Tobacco Use Status: Never used Tobacco e-Cigarette/Vaping Use: Never Used Second Hand Smoke Exposure: No service: No Current occupational status: disabled Current occupational exposures/hazards: No Cognitive needs: No Hearing needs: No Vision needs: Yes Questionnaire PHQ-9 Over the last 2 weeks, how often have you been bothered by any of the following problems? 1. Little interest or pleasure in doing things: not at all 2. Feeling down, depressed, or hopeless: not at all 3. Trouble falling or staying asleep, or sleeping too much: not at all 4. Feeling tired or having little energy: not at all 5. Poor appetite or overeating: not at all 6. Feeling bad about yourself - or that you are a failure or have let yourself or your family down: not at all 7. Trouble concentrating on things, such as reading the newspaper or watching television: not at all 8. Moving or speaking so slowly that other people could have noticed. Or the opposite - being so fidgety or restless that you have been moving around a lot more than usual: not at all 9. Thoughts that you would be better off or of hurting yourself in some way: not at all Total score: 0 Depression Screening Interpretation: Negative Depression Screening Done: Yes Source: Developed by Drs. Farshad Gimenez, Anna Marie Denis, Balwinder Coffey and colleagues, with an educational aliyah from [employer]. Thrive Questionnaire Date Thrive assessed: 09/17/23 I am a: Patient What is your living situation today?: I have a steady place to live Within the past 12 months, did the food you bought not last and you didn't have the money to get more?: Never true Within the past 12 months, did you worry whether your food would run out before you got money to buy more?: Never true Do you have trouble paying for medicines?: No Do you have trouble getting transportation to medical appointments?: No Do you have trouble paying your heating and electricity bill?: No Do you have trouble taking care of your child, family member or friend?: No Do you have trouble with day-to-day activities such as bathing, preparing meals, shopping, managing finances, etc.?: No Are you currently unemployed and looking for a job?: No Are you interested in more education?: No Currently or been in a relationship where the following occur: no concerns reported THRIVE Score: 0 AUDIT C Alcohol Use Questionnaire (AUDIT-C) 1. How often do you have a drink containing alcohol?: 2-4 times a month 2. How many drinks containing alcohol do you have on a typical day when you are drinking?: 3 or 4 3. How often do you have six or more drinks on one occasion?: Never Total Score: 3 ANAT-7 AMB Questionnaire ANAT-7 Date ANAT - 7 assessed: 09/17/23 Feeling nervous, anxious, or on edge: 0 = Not at all Not being able to stop or control worryin = Not at all Worrying too much about different things: 0 = Not at all Trouble relaxin = Not at all Being so restless that it is hard to sit still: 0 = Not at all Becoming easily annoyed or irritable: 0 = Not at all Feeling afraid as if something awful might happen: 0 = Not at all Total ANAT-7 score (0-4 normal; 5-9 mild; 10-14 moderate; 15-21 severe): 0 Source: Developed by Drs. Farshad Gimenez, Anna Marie Denis, Balwinder Coffey and colleagues, with an educational aliyah from [employer]. Review of Systems Const Denies poor appetite and Denies weakness Eyes Denies no additional complaints ENT Reports Normal hearing present, Denies dizziness, Denies nasal congestion, Denies tinnitus and Denies sore throat Card Denies chest pain, Denies syncope, Denies rapid heart rate and Denies dyspnea Resp Denies cough and Denies dyspnea GI Denies change in stool character, Reports constipation, Denies diarrhea, Denies nausea and Denies vomiting Denies dysuria and Denies urinary frequency Neuro Reports Normal hearing present, Denies confusion, Denies dizziness, Denies syncope and Denies weakness Psych Denies confusion Physical exam (Primary Care) Vital Signs: Last Vital Signs Pulse 79 09/17/23 12:31 BP 124/68 09/17/23 12:31 Pulse Ox 98 09/17/23 12:31 Oxygen Delivery Method Room Air 09/17/23 12:31 BMI result Body Mass Index 31.8 Tobacco/Smoking Status: Tobacco use Status Tobacco use date assessed 09/04/23 09/17/23 12:38 Patient Tobacco Use Status Never used Tobacco 09/17/23 12:38 e-Cigarette/Vaping Use Never Used 09/17/23 12:38 PHQ-9: PHQ-9 Score PHQ-9: Total score 0 09/17/23 12:38 Depression Screening Interpretation: Negative Thrive Assessment: Date of Thrive Assessment Date Thrive assessed 09/17/23 09/17/23 12:38 Currently or been in a relationship where the following occur: no concerns reported Const General: No confusion Orientation/consciousness: No confusion HENMT Head: Yes normocephalic Ears: external ears normal and TM's normal bilaterally Face and sinus: Yes normal facial exam Mouth: moist mucous membranes Throat: Yes tonsils normal Eyes Conjunctivae: conjunctivae normal Pupils: Equal, round and reactive pupils present and Pupil accommodation reflex normal Direct Ophthalmoscopy: normal light reflex Neck Neck: No lymphadenopathy Thyroid: Thyroid normal Chest Chest palpation & inspection: normal inspection of the chest Resp Effort & Inspection: normal respiratory effort and no audible wheezes Auscultation: clear to auscultation bilaterally, no crackles, no wheezes and lung sounds not diminished Cardio Rate: regular rate Rhythm: regular rhythm Peripheral pulses: radial pulses present and dorsalis pedis present GI Other: guaiac neg, prosrtate Mild enlarged Palpation (GI): no masses Auscultation: normal bowel sounds and normoactive bowel sounds Other: R inguinal hernia Skin Other: pedal pulses and pin prick normal General skin exam: no rashes or lesions noted Rashes: no rashes Neuro General: No confusion Cranial nerves: Yes Equal, round and reactive pupils present and Yes Normal hearing present Cognition (Neuro): normal cognition Gait exam (Neuro): Normal gait present Motor exam (neuro): 5/5 motor strength present throughout Deep tendon reflexes (DTR's): Right brachioradialis reflex intensity grade: 2+, Left brachioradialis reflex intensity grade: 2+, Right patellar reflex intensity grade: 2+ and Left patellar reflex intensity grade: 2+ Extrem General: No edema Assessment and Plan Assessment & Plan (1) Annual physical exam: Code(s): Z00.00 - Encounter for general adult medical examination without abnormal findings (2) Type 2 diabetes mellitus with hyperglycemia: Comment: dr. Green Code(s): E11.65 - Type 2 diabetes mellitus with hyperglycemia Plan: Decrease the amount of carbohydrate intake, pasta, bread, rice and potatoes are all sugar and that is aside from all the sweet stuff, remember that fruits are good but they are Sweet also. Hemoglobin A1c goal of less than 6.5 presently on diet control (3) GERD (gastroesophageal reflux disease): Code(s): K21.9 - Gastro-esophageal reflux disease without esophagitis Plan: Avoid the foods that causes that usually spicy foods, tomato products, juices, coffee, soda and foods that your sensitive to. After eating do not lie down, allow 3-4 hours before in lie down. And keep the head of bed above 30 degrees to avoid the acid from going up. (4) Hypertension: Comment: getting hypotension - stop BP med 09/2023 Code(s): I10 - Essential (primary) hypertension Plan: bp going too low so stop BP med (5) Generalized anxiety disorder: Comment: Psychiatrist Dr. Presley in [address] Q month- 2 months therapist seen Q O week Code(s): F41.1 - Generalized anxiety disorder Plan: Continue with counseling and therapy (6) Hypercholesterolemia: Code(s): E78.00 - Pure hypercholesterolemia, unspecified Plan: Avoid fried foods, chicken skin, eggs, butter margarine, pastries and meat. Be it pork or beef they have a lot of cholesterol LDL goal of less than 100 and triglyceride of less than 150 (7) Asthma: Comment: stable-uses Pulmicort inhaler daily Code(s): J45.909 - Unspecified asthma, uncomplicated Plan: Continue with the inhaler as needed (8) Hearing deficit: Code(s): H91.90 - Unspecified hearing loss, unspecified ear Orders: Orders Comprehensive Met. Panel Today E11.65 - Type 2 diabetes mellitus with hyperglycemia Creatinine Urine Today E11.65 - Type 2 diabetes mellitus with hyperglycemia Complete Blood Count Auto Diff Today E11.65 - Type 2 diabetes mellitus with hyperglycemia Free T4 (Free Thyroxine) Today E11.65 - Type 2 diabetes mellitus with hyperg lycemia Thyroid Stimulating Hormone Today E11.65 - Type 2 diabetes mellitus with hyperglycemia Microalbumin, Random (w Creat) Today E11.65 - Type 2 diabetes mellitus with hyperglycemia Prostate Specific Antigen Scr Today E11.65 - Type 2 diabetes mellitus with hyperglycemia Vitamin B12 and Folate Today E11.65 - Type 2 diabetes mellitus with hyperglycemia Lipid Panel Today E11.65 - Type 2 diabetes mellitus with hyperglycemia, E78.00 - Pure hypercholesterolemia, unspecified Hemoglobin A1c Today E11.65 - Type 2 diabetes mellitus with hyperglycemia Referrals Speech and Hearing Referral H91.90 - Unspecified hearing loss, unspecified ear Medications: Discontinued lisinopril Discontinued Reason: Doctor's Order 5 mg PO DAILY 90 tabs 1RF I10 - Essential (primary) hypertension Coding Level of Care Code Est Pt Prev Care 40-64y([id number]) Diagnoses Annual physical exam Z00.00 Type 2 diabetes mellitus with hyperglycemia E11.65 GERD (gastroesophageal reflux disease) K21.9 Hypertension I10 Generalized anxiety disorder F41.1 Hypercholesterolemia E78.00 Asthma J45.909 Hearing deficit H91.90
== END 2023-09-17 13:08 | disposition home or self-care (01) ==
PROVIDERS: Visit Provider Internal Medicine
DX: Z00.00 Encounter for general adult medical examination without abnormal findings (principal); E11.65 Type 2 diabetes mellitus with hyperglycemia; K21.9 Gastro-esophageal reflux disease without esophagitis; I10 Essential (primary) hypertension; F41.1 Generalized anxiety disorder; E78.00 Pure hypercholesterolemia, unspecified; J45.909 Unspecified asthma, uncomplicated; H91.90 Unspecified hearing loss, unspecified ear
CPT/HCPCS: 99396

== ENCOUNTER 2023-10-29 11:32 | Emergency (ER) | payer OTHER, SELFPAY ==
--- NOTE | ~2023-10-29 | XR_ITS ---
EXAMINATION: XR KNEE, RIGHT CLINICAL INFORMATION: Right knee pain after injury COMPARISON: None available. TECHNIQUE: Four views of the right knee. FINDINGS: No fracture is seen. A small knee joint effusion is present. Alignment is anatomic. Joint spaces are maintained. No abnormal soft tissue calcification. XR/XR knee RT 4V IMPRESSION: Normal right knee.
[2023-10-29 11:48] VITALS: BP 154/93; PULSE 82; RESP 16; TEMP 36.6; O2SAT 98; BMI 31.1
--- NOTE | 2023-10-29 11:48 | ED_ITS ---
HPI - General Adult General Chief complaint: Extremity Injury, Lower Stated complaint: r knee pain Time Seen by Provider: 10/29/23 14:45 Source: patient Mode of arrival: ambulatory Limitations: no limitations History of Present Illness HPI narrative: Patient is a 53 year old assigned male at with a history of DM presenting to the emergency department today with right knee pain. Patient states that over the last 3 weeks he has been having worsening right knee pain. Patient states that he hit it with a stick doing yard work and it continues to be painful. Patient denies any dizziness, lightheadedness, abdominal pain, nausea, vomiting, fever, chills, blurry vision, double vision, loss of vision, chest pain, difficulty breathing, shortness of breath, back pain, night sweats, pain with urination, increased urinary frequency, increased urinary urgency, blood in his urine or stool, syncope or a near syncopal episode, bowel incontinence, bladder incontinence, bowel retention, bladder retention, or any other complaints at this time. Onset (ago): week(s) (3) Location: right and lower extremity Severity: mild Severity scale (1-10): 3 Quality: aching and dull Pain Consistency: constant Relieving factors: none Exacerbating factors: none Associated symptoms: denies other symptoms Treatments prior to arrival: none Related Data Home Medications Medication Instructions Recorded Confirmed mirtazapine 15 mg tablet 15 mg PO BEDTIME 07/27/20 09/17/23 quetiapine 200 mg tablet (Seroquel) 200 mg PO BEDTIME 01/27/21 09/17/23 Previous Rx's Medication Instructions Recorded hydrocortisone 2.5 % topical cream 1 appl topical BID PRN itching #20 04/17/22 grams blood pressure monitor (Blood #1 ea 09/05/22 Pressure Kit) simvastatin 10 mg tablet 10 mg PO BEDTIME 90 days #90 tabs 12/20/22 albuterol sulfate 90 mcg/actuation 2 puff inhalation Q6H PRN for 01/18/23 aerosol inhaler (Ventolin HFA) wheezing #18 ea cetirizine 10 mg tablet 10 mg PO DAILY #90 tabs 02/28/23 fluticasone propionate 50 2 spray intranasal DAILY #48 mL 05/30/23 mcg/actuation nasal spray,suspension diclofenac sodium 1 % topical gel 4 g topical QID #100 grams 08/27/23 (Voltaren Arthritis Pain) gabapentin 100 mg capsule 100 mg PO BEDTIME #30 caps 09/04/23 budesonide-formoterol HFA 160 2 puff inhalation BID #10.2 grams 09/23/23 mcg-4.5 mcg/actuation aerosol inhaler (Symbicort) Allergies Allergy/AdvReac Type Severity Reaction Status Date / Time Penicillins [PENICILLINS] Allergy Intermediate STOMACH Verified 10/29/23 11:48 UPSET Review of Systems Constitutional: Constitutional: Reports no additional constitutional complaints, Denies chills, Denies fever(s) and Denies night sweats Eyes: Eyes: Reports no additional eye complaints, Denies blurry vision, Denies change in vision, Denies diplopia, Denies eye discharge, Denies loss of vision and Denies eye pain ENT: Denies dizziness Cardiovascular: Cardiovascular: Reports no additional cardiovascular complaints, Denies chest pain, Denies lightheadedness, Denies Loss of Consciousness and Denies dyspnea Respiratory: Respiratory: Reports no additional respiratory complaints and Denies dyspnea Gastrointestinal: Gastrointestinal: Reports no additional gastrointestinal complaints, Denies abdominal pain, Denies melena, Denies hematochezia, Denies change in bowel habits and Denies change in stool character Genitourinary: Genitourinary: Reports no additional male genitourinary complaints, Denies hematuria, Denies oliguria, Denies difficulty urinating, Denies dysuria, Denies urinary frequency, Denies urinary hesitancy, Denies urinary incontinence and Denies urinary urgency Musculoskeletal: Musculoskeletal: Reports no additional musculoskeletal complaints, Denies numbness and Denies tingling Comments: right knee pain Neurologic: Denies dizziness, Denies loss of vision, Denies numbness and Denies tingling Psychiatric: Psychiatric: Reports no additional psychiatric complaints Endocrine: Endocrine: Reports no additional endocrine complaints Hematologic/Lymphatic: Hematologic/Lymphatic: Reports no additional hematologic/lymphatic complaints Allergic/Immunologic: Allergic/Immunologic: Reports no additional allergic/immunologic complaints PMFSH Past Medical History Attestation statement: The following information was validated with the patient. Source: old records reviewed and nursing notes reviewed Medical History COVID-19 vaccine series completed Elevated ferritin level Anemia Colon cancer screening Numbness of left hand Radicular pain in left arm Desensitization to allergy shot Attention deficit disorder History of renal calculi Impaired fasting glucose Vitamin B12 deficiency Vitamin D deficiency Overweight (BMI 25.0-29.9) Fatty liver Asthma Chronic back pain Anemia Hypercholesterolemia Surgical History H/O colonoscopy History of nasal surgery History of ear surgery Family History Family History Father Bone cancer Brain cancer Mother CVD (cardiovascular disease) Stroke Maternal Uncle Heart disease Paternal Uncle Bone cancer Lung cancer Sister Lung cancer Bipolar 1 disorder Other Prostate cancer Social History Social History Household Members: Significant Other Housing: Apartment Are you a primary healthcare economics manager to a significant other at home: No Do you presently have visiting nurse or other home services: No Alcohol intake: current Alcohol intake frequency: a few times a month Comment: once a week 2-3 beers Patient Tobacco Use Status: Never used Tobacco e-Cigarette/Vaping Use: Never Used Second Hand Smoke Exposure: No Advance Directives: No service: No Current occupational status: disabled Current occupational exposures/hazards: No Cognitive needs: No Hearing needs: No Vision needs: Yes Physical Exam ED Vital Signs: Vital Signs - 24 hr 10/29/23 11:48 10/29/23 14:30 Temperature 97.9 F 97.9 F Pulse Rate 82 82 Respiratory Rate 16 18 Blood Pressure 154/93 H 154/93 H Pulse Oximetry 98 98 Oxygen Delivery Method Room Air Room Air BMI result Body Mass Index 31.1 Const General: cooperative, no acute distress, alert and awake Nutritional Appearance: well nourished Orientation/consciousness: patient oriented x3 Limitations: no limitations [facility] Head: Yes normal to inspection and Yes atraumatic Ears: hearing grossly normal bilaterally and external ears normal General nose exam: Normal external nose present, no nasal discharge noted and no epistaxis Face and sinus: Yes normal facial exam, No abrasion and No laceration Mouth: Normal oral and palatal mucosa present, no drooling and no muffled voice Eyes General: appearance normal, both eyes and all related structures Periorbital: periorbital findings normal Eyelids: Yes eyelids normal Conjunctivae: conjunctivae normal Pupils: Equal, round and reactive pupils present EOM: EOMs intact bilaterally Neck Neck: Yes normal visual inspection, Yes full ROM and Yes no lymphadenopathy Chest Chest palpation & inspection: normal inspection of the chest Resp Effort & Inspection: normal respiratory effort and able to speak in complete sentences GI Inspection: Yes normal to inspection Neuro General: patient oriented x3 and moves all extremities Cranial nerves: Yes Equal, round and reactive pupils present Cognition (Neuro): normal cognition Motor exam (neuro): 5/5 motor strength present throughout Sensory Exam: Normal double simultaneous stimulation for sensation Coordination: [id number] test normal Extrem General: Yes normal to inspection, Yes full ROM and Yes capillary refill normal Psych Appearance: grossly normal Mental Status: mental status grossly normal Affect: normal affect Attitude: cooperative Thought process: Normal thought process present Thought content: Normal thought content present Insight: Good insight present (Psych) Course Course Course Narrative: RME performed by Tricia Hernandez PA-C. Patient is a 53 year old assigned male at presenting to the emergency department with right knee pain. Detailed physical exam and review of systems are deferred to the broadcast meteorologist. Imaging ordered. Patient placed back in the waiting room pending room availability and results. Medical Decision Making Medical Decision Making [facility] Narrative: Patient is a 53 year old assigned male at with a history of DM presenting to the emergency department today with right knee pain. Patient's physical exam was unremarkable. Patient's right knee x-ray showed no acute process. I explained my physical exam findings as well as all test results to the patient. I answered all questions asked by the patient. I stressed the importance of the patient taking his medication as prescribed. I stressed the importance of the patient following up with his primary care provider and an orthopedist. I stressed the importance of the patient returning to the emergency department immediately if his symptoms were to worsen or if he were to develop any dizziness, shortness of breath, difficulty breathing, chest pain, blurry vision, loss of vision, nausea, vomiting, abdominal pain, fever, chills, back pain, or any other complaints. Patient verbalized agreement and understanding with this treatment plan and discharge. Differential Diagnosis Differential Diagnoses: The differential diagnosis associated with the presentation includes Knee pain Knee sprain Knee strain Admission/Observation Consideration of admission/observation: Escalation of care including admission/observation considered Patient would have been admitted to the hospital had his work up had any findings where hospital admission was appropriate and his clinical presentation warranted hospital admission. Independent Interpretation I performed an independent interpretation of an: Plain X-Ray Interpretation: My interpretation is in agreement with the radiologist's impression of this imaging study. EXAMINATION: XR KNEE, RIGHT CLINICAL INFORMATION: Right knee pain after injury COMPARISON: None available. TECHNIQUE: Four views of the right knee. FINDINGS: No fracture is seen. A small knee joint effusion is present. Alignment is anatomic. Joint spaces are maintained. No abnormal soft tissue calcification. XR/XR knee RT 4V IMPRESSION: Normal right knee. Dictated By: Luis Enrique Foote MD Signed By: Electronically signed by Luis Enrique Foote MD 10/29/23 3608 Radiology Impression Discussion of test interpretation with radiology: I have reviewed the radiologist's reading. Discharge Plan Discharge Clinical Impression: Acute knee pain Patient Disposition: Home, Self-Care Instructions: Knee Pain (ED) Additional Instructions: Follow up with your primary care provider and an orthopedic provider. Return to the emergency department immediately if your symptoms worsen or if you develop any dizziness, shortness of breath, difficulty breathing, chest pain, blurry vision, loss of vision, nausea, vomiting, abdominal pain, fever, chills, back pain, or any other complaints. Prescriptions: No Action simvastatin 10 mg tablet 10 mg PO BEDTIME 90 Days Qty: 90 2RF albuterol sulfate [Ventolin HFA] 90 mcg/actuation HFA aerosol inhaler 2 puff inhalation Q6H PRN (Reason: for wheezing) Qty: 18 2RF fluticasone propionate 50 mcg/actuation spray,suspension 2 spray intranasal DAILY Qty: 48 4RF diclofenac sodium [Voltaren Arthritis Pain] 1 % gel 4 g topical QID Qty: 100 3RF Rx Instructions: apply to single knee, ankle, foot; for foot includes sole/toes/top of foot budesonide-formoterol [Symbicort] 160-4.5 mcg/actuation HFA aerosol inhaler 2 puff inhalation BID Qty: 10.2 3RF hydrocortisone 2.5 % cream 1 appl topical BID PRN (Reason: itching) Qty: 20 0RF quetiapine [Seroquel] 200 mg tablet 200 mg PO BEDTIME mirtazapine 15 mg tablet 15 mg PO BEDTIME (DME) blood pressure monitor [Blood Pressure Kit] Kit See Rx Instructions .ROUTE .MEDSUPPLY Qty: 1 0RF Rx Instructions: As directed cetirizine 10 mg tablet 10 mg PO DAILY Qty: 90 3RF gabapentin 100 mg capsule 100 mg PO BEDTIME Qty: 30 1RF Referrals: [facility] [place] [facility] [Provider Group] (Call to establish and follow up with an orthopedic provider.) Allyn Fitzgerald MD [Primary Care Provider] - Interventions: ED Discharge Assessment Last Done: 10/29/23 14:30 Discharge Date/Time: 10/29/23 14:47 Print Language: Panamanian
[2023-10-29 14:30] VITALS: BP 154/93; PULSE 82; RESP 18; TEMP 36.6; O2SAT 98
== END 2023-10-29 14:47 | disposition home or self-care (01) ==
PROVIDERS: Emergency Provider Emergency Medicine; PCP Internal Medicine
DX: M25.561 Pain in right knee (principal); E11.9 Type 2 diabetes mellitus without complications
CPT/HCPCS: 73564; 99282; 99283

== ENCOUNTER 2023-11-13 10:08 | Outpatient (AMB) | payer OTHER, SELFPAY ==
[2023-11-13 10:11] VITALS: BMI 31.1
--- NOTE | 2023-11-13 10:11 | MHC.OFFVIS ---
Intake Vital Signs 11/13/23 10:11 Height 5 ft 2 in Weight 170 lb BMI 31.1 Intake Visit Reasons: New Pt - Right Knee Pain Intake Note: Ishan is a 53 year old male who presents as a new patient with Right knee pain, clicking and stiffness. The patient states that he 1st injured his knee several years ago. Since that time his symptoms have gotten worse. He did aggravate his knee several months ago while doing yd work. He twisted his knee and had worsening pain along the medial aspect of his knee. He has tried Tylenol and anti-inflammatory medicines which gave him minimal relief. He has also done physical therapy which aggravated his pain. Has had injections in the past which gave him no relief. He states that his right knee will give out several times per day. Allergies Penicillins [PENICILLINS] Allergy (Intermediate, Verified 11/13/23 10:18) STOMACH UPSET Medication List - Last Reconciled 11/14/23 by Justino Gibbons MD albuterol sulfate 90 mcg/actuation (Ventolin HFA) 2 puffs inhalation Q6H PRN blood pressure monitor (Blood Pressure Kit) As directed budesonide-formoterol 160-4.5 mcg/actuation (Symbicort) 2 puffs inhalation BID cetirizine 10 mg PO DAILY diclofenac sodium 1% (Voltaren Arthritis Pain) 4 grams topical QID fluticasone propionate 50 mcg/actuation 2 sprays intranasal DAILY gabapentin 100 mg PO BEDTIME hydrocortisone 2.5% 1 appl topical BID PRN mirtazapine 15 mg PO BEDTIME quetiapine (Seroquel) 200 mg PO BEDTIME simvastatin 10 mg PO BEDTIME 90 days [facility] Medical History COVID-19 vaccine series completed Elevated ferritin level Anemia Colon cancer screening Numbness of left hand Radicular pain in left arm Desensitization to allergy shot Attention deficit disorder History of renal calculi Impaired fasting glucose Vitamin B12 deficiency Vitamin D deficiency Overweight (BMI 25.0-29.9) Fatty liver Asthma Chronic back pain Anemia Hypercholesterolemia Surgical History H/O colonoscopy History of nasal surgery History of ear surgery Family History Father Bone cancer Brain cancer Mother CVD (cardiovascular disease) Stroke Maternal Uncle Heart disease Paternal Uncle Bone cancer Lung cancer Sister Lung cancer Bipolar 1 disorder Other Prostate cancer Social History (Updated 11/13/23 @ 10:18 by Khadijah Cronin CMA) Household Members: Significant Other Housing: Apartment Are you a primary physician primary care sports medicine to a significant other at home: No Do you presently have visiting nurse or other home services: No Alcohol intake: current Alcohol intake frequency: a few times a month Comment: once a week 2-3 beers Patient Tobacco Use Status: Never used Tobacco e-Cigarette/Vaping Use: Never Used Second Hand Smoke Exposure: No service: No Current occupational status: disabled Current occupation: Right hand dominate Current occupational exposures/hazards: No Cognitive needs: No Hearing needs: No Vision needs: Yes Physical Exam Vital Signs: BMI result Body Mass Index 31.1 Const Other: Well-nourished well-developed very friendly male awake alert and oriented x3 in no acute distress Extrem Other: Bilateral lower extremity examination shows good capillary refill, no skin lesions noted, normal sensation light touch Right knee examination shows a minimal effusion, minimal crepitus with range of motion, tenderness along his medial joint line, positive Elizabeth's test, no instability Results Reviewed Results Reviewed: Standing full weight-bearing x-rays of the patient's right knee show mild diffuse joint space narrowing, no acute bony abnormalities Assessment & Plan Assessment & Plan (1) Right knee pain: Code(s): M25.561 - Pain in right knee Plan Mr. Jerome Davenport presents with progressively worsening right knee pain and mechanical symptoms most likely due to a tear of his medial meniscus. Thus, I will send the patient for an MRI of his right knee for further evaluation. I will see him back once the MRI is completed to discuss the findings and treatment options. Feel free to call me at any time should questions regarding his orthopedic management arise. Thank you very much for asking me to see this very friendly gentleman. I spent 22 minutes in reviewing the patient's records and imaging studies, seeing the patient and documenting in the medical record. Orders: Orders MR knee RT wo con 11/13/23 M25.561 - Pain in right knee Coding Level of Care Code New Pt Level 2 (88303) Diagnoses Right knee pain M25.561
== END 2023-11-13 10:25 | disposition home or self-care (01) ==
PROVIDERS: PCP Internal Medicine; Visit Provider Orthopaedic Surgery
DX: M25.561 Pain in right knee (principal)
CPT/HCPCS: 99202

== ENCOUNTER → 2023-11-13 10:08 | Outpatient (BNVA) | payer OTHER, SELFPAY | PROVIDERS: PCP Internal Medicine; Visit Provider Orthopaedic Surgery | DX: M25.561 Pain in right knee (principal) | CPT/HCPCS: 99202 ==

== ENCOUNTER 2023-11-15 08:31 | Outpatient (REF) | payer OTHER, SELFPAY ==
--- NOTE | 2023-11-15 09:52 | MHC.AU.MED ---
Medical Clearance for Hearing Instrumentation Date: 11/15/23 Patient Name: Ishan Davenport Date of : 1970 Primary Care Provider: Allyn Fitzgerald MD Referring Provider: Allyn Fitzgerald MD We have seen your patient on 11/15/23 and have determined that they are a candidate for amplification (See accompanying report). Specifically, they would benefit from: Hearing aid use in both ears There is a statute that addresses Medical Evaluation Requirements prior to fitting a patient with a hearing aid. According to [place] statute 265 CMR:6.03(1), (a) General. Except as provided in 265 CMR 6.03(1)(b), a hearing aid technician shall not sell a hearing aid unless the prospective user has presented to the hearing aid technician a written statement signed by a licensed physician that states that the patient's hearing loss has been medically evaluated and the patient may be considered a candidate for a hearing aid. The medical evaluation must have taken place within the preceding six months. Please note: Due to the [place] Statute referenced above, we cannot accept a signature other than that of a licensed physician. DRY HEAT CABINET ATTENDANT and PA signatures cannot be accepted. I am in agreement with the above recommendation. There is no medical contraindication for hearing instrumentation. Physician Signature Date Physician Name (Printed)
== END 2023-11-15 08:32 | disposition home or self-care (01) ==
LOC: HO.SH 08:31
PROVIDERS: PCP Internal Medicine; Visit Provider Internal Medicine
DX: Z01.118 Encounter for examination of ears and hearing with other abnormal findings (principal); Z46.1 Encounter for fitting and adjustment of hearing aid; H90.3 Sensorineural hearing loss, bilateral
CPT/HCPCS: 92557; 92567; 92591

== ENCOUNTER 2023-11-30 13:56 | Outpatient (REF) | payer OTHER, SELFPAY | END 2023-11-30 13:57 | disposition home or self-care (01) | LOC: HO.HAP 13:56 | PROVIDERS: Visit Provider Internal Medicine | DX: Z46.1 Encounter for fitting and adjustment of hearing aid (principal); H90.3 Sensorineural hearing loss, bilateral | CPT/HCPCS: V5011; V5020; V5160; V5261 ==

== ENCOUNTER 2023-12-11 18:02 | Outpatient (REF) | payer OTHER, SELFPAY ==
--- NOTE | ~2023-12-11 | MR_ITS ---
EXAMINATION: MR KNEE WITHOUT CONTRAST, RIGHT CLINICAL INFORMATION: Pain in the right knee. COMPARISON: Radiograph dated 10/29/2023. TECHNIQUE: MRI of the knee without contrast was performed using routine sequences on a high-field scanner. FINDINGS: MENISCI: Medial Meniscus: There is a complex tear of the posterior horn and body of the medial meniscus extending to the meniscal undersurface with partial extrusion of an undersurface flap fragment into the meniscotibial recess medially. Surrounding soft tissues are edematous. Lateral Meniscus: Subtle undersurface and inner margin fraying are present at the posterior horn. No tears. LIGAMENTS: Cruciate: Intact Collateral: Edema signal around the MCL is likely reactive to the underlying meniscal abnormality. Collateral ligaments are intact. EXTENSOR MECHANISM: Intact ARTICULAR CARTILAGE/BONE: Patellofemoral Compartment: Subtle chondral fissures are present at the medial patellar facet. No defects. Trochlear cartilage appears normal. Medial Compartment: There is mild to moderate nonobstructive calcaneus medial tibial plateau and more mild chondral thinning at the medial femoral condyle with small marginal osteophytes. Lateral Compartment: [id number] nonuniform chondral thinning is present at the lateral tibial plateau, more pronounced posteriorly. Tiny marginal osteophytes. JOINT FLUID AND BURSAE: Small joint effusion and a small to moderate-sized Mullen's cyst. Edema signal is evident in the subcutaneous fat. MR/MR knee RT wo con IMPRESSION: 1. Complex tear of the posterior horn and body of the medial meniscus with partial extrusion of an undersurface flap fragment into the meniscotibial recess. 2. Subtle undersurface and inner margin fraying at the posterior horn of the lateral meniscus. 3. Mild tricompartmental osteoarthritis. 4. Small joint effusion and Mullen's cyst.
== END 2023-12-11 18:03 | disposition home or self-care (01) ==
LOC: HO.MRI 18:02
PROVIDERS: PCP Internal Medicine; Visit Provider Orthopaedic Surgery
DX: M25.561 Pain in right knee (principal)
CPT/HCPCS: 73721

== ENCOUNTER 2023-12-12 10:31 | Outpatient (REF) | payer OTHER, SELFPAY ==
[2023-12-12 11:57] LABS: Calcium 9.7 mg/dL (8.4-10.2); Chloride 105 mmol/L (96-108); Potassium 4.1 mmol/L (3.3-5.1); Sodium 139 mmol/L (135-145)
[2023-12-12 12:44] LABS: Creatinine Urine 57.01 mg/dL; Microalbumin Urine < 5.0 mg/L
== END 2023-12-12 10:32 | disposition home or self-care (01) ==
LOC: HO.LAB 10:31
PROVIDERS: PCP Internal Medicine; Visit Provider Internal Medicine
DX: E11.65 Type 2 diabetes mellitus with hyperglycemia (principal); E78.00 Pure hypercholesterolemia, unspecified
CPT/HCPCS: 36415; 80053; 80061; 82570; 82607; 82746; 83036; 84153; 84439; 84443; 85025

== ENCOUNTER 2023-12-13 14:16 | Outpatient (REF) | payer OTHER, SELFPAY | END 2023-12-13 14:17 | disposition home or self-care (01) | LOC: HO.HAP 14:16 | PROVIDERS: Visit Provider Internal Medicine | DX: Z13.89 Encounter for screening for other disorder (principal) ==

== ENCOUNTER 2023-12-19 08:40 | Outpatient (AMB) | payer OTHER, SELFPAY ==
[2023-12-19 08:42] VITALS: BMI 31.1
--- NOTE | 2023-12-19 08:42 | A.OFFVIS_ITS ---
Vital Signs 12/19/23 08:42 Height 5 ft 2 in Weight 170 lb BMI 31.1 Intake Visit Reasons: OV- MRI review Right knee Intake Note: Ishan is a 53 year old male who presents with progressively worsening right knee pain and giving way. The patient states that he first injured his knee several years ago. Since that time his symptoms have gotten worse. He did aggravate his knee several months ago while doing yard work. He twisted his knee and had worsening pain along the medial aspect of his knee. He has tried Tylenol and anti-inflammatory medicines which gave him minimal relief. He has also done physical therapy which aggravated his pain. Has had injections in the past which gave him no relief. He states that his right knee will give out several times per day. Allergies Penicillins [PENICILLINS] Allergy (Intermediate, Verified 12/19/23 08:44) STOMACH UPSET Medication List - Last Reconciled 12/19/23 by Justino Gibbons MD albuterol sulfate 90 mcg/actuation (Ventolin HFA) 2 puffs inhalation Q6H PRN blood pressure monitor (Blood Pressure Kit) As directed budesonide-formoterol 160-4.5 mcg/actuation (Symbicort) 2 puffs inhalation BID cetirizine 10 mg PO DAILY diclofenac sodium 1% (Voltaren Arthritis Pain) 4 grams topical QID fluticasone propionate 50 mcg/actuation 2 sprays intranasal DAILY gabapentin 100 mg PO BEDTIME hydrocortisone 2.5% 1 appl topical BID PRN mirtazapine 15 mg PO BEDTIME quetiapine (Seroquel) 200 mg PO BEDTIME simvastatin 10 mg PO BEDTIME 90 days [facility] Medical History COVID-19 vaccine series completed Elevated ferritin level Anemia Colon cancer screening Numbness of left hand Radicular pain in left arm Desensitization to allergy shot Attention deficit disorder History of renal calculi Impaired fasting glucose Vitamin B12 deficiency Vitamin D deficiency Overweight (BMI 25.0-29.9) Fatty liver Asthma Chronic back pain Anemia Hypercholesterolemia Surgical History H/O colonoscopy History of nasal surgery History of ear surgery Family History Father Bone cancer Brain cancer Mother CVD (cardiovascular disease) Stroke Maternal Uncle Heart disease Paternal Uncle Bone cancer Lung cancer Sister Lung cancer Bipolar 1 disorder Other Prostate cancer Social History Household Members: Significant Other Housing: Apartment Are you a primary childcare worker to a significant other at home: No Do you presently have visiting nurse or other home services: No Alcohol intake: current Alcohol intake frequency: a few times a month Comment: once a week 2-3 beers Patient Tobacco Use Status: Never used Tobacco e-Cigarette/Vaping Use: Never Used Second Hand Smoke Exposure: No service: No Current occupational status: disabled Current occupation: Right hand dominate Current occupational exposures/hazards: No Cognitive needs: No Hearing needs: No Vision needs: Yes Physical Exam Vital Signs: BMI result Body Mass Index 31.1 Const Other: Well-nourished well-developed very friendly male awake alert and oriented x3 in no acute distress Extrem Other: Bilateral lower extremity examination shows good capillary refill, no skin lesions noted, normal sensation light touch Right knee examination shows a mild effusion, minimal crepitus with range of motion, tenderness along his medial joint line, positive Elizabeth's test, no instability Results Reviewed Results Reviewed: MRI of the patient's right knee shows mild diffuse degenerative changes as well as a tear of the medial meniscus, no acute bony abnormalities Assessment & Plan Assessment & Plan (1) Tear of medial meniscus of right knee: Code(s): S83.241A - Other tear of medial meniscus, current injury, right knee, initial encounter Category: Medical Plan MR. Jerome Davenport presents with progressively worsening right knee pain and mechanical symptoms due to a medial meniscus tear. I had a lengthy discussion with the patient regarding the treatment options. At this point he has failed continued non operative treatments. The risks and benefits of right knee arthroscopic surgery were discussed at length with the patient. The patient wishes to proceed with surgery. Does understand that he may not get 100% relief of his symptoms depending on the severity of his degenerative changes. Surgery will most likely involve right knee diagnostic arthroscopy with right knee arthroscopic partial medial meniscectomy. The patient will be scheduled for a next available date. He will follow-up as instructed. Feel free to call me at any time should questions regarding his orthopedic management arise. I spent 22 minutes in reviewing the patient's records and imaging studies, seeing the patient and documenting in the medical record. Coding Level of Care Code Est Pt Level 3 (79669) Diagnoses Tear of medial meniscus of right knee S83.241A
== END 2023-12-19 08:54 | disposition home or self-care (01) ==
PROVIDERS: PCP Internal Medicine; Visit Provider Orthopaedic Surgery
DX: S83.241A Other tear of medial meniscus, current injury, right knee, initial encounter (principal)
CPT/HCPCS: 99213

== ENCOUNTER → 2023-12-19 08:40 | Outpatient (BNVA) | payer OTHER, SELFPAY | PROVIDERS: PCP Internal Medicine; Visit Provider Orthopaedic Surgery | DX: S83.241A Other tear of medial meniscus, current injury, right knee, initial encounter (principal); X50.1XXA Overexertion from prolonged static or awkward postures, initial encounter; Y93.9 Activity, unspecified; Y92.9 Unspecified place or not applicable; Y99.9 Unspecified external cause status | CPT/HCPCS: 99212 ==

== ENCOUNTER 2023-12-20 08:38 | Outpatient (AMB) | payer OTHER, SELFPAY ==
[2023-12-20 08:46] VITALS: BP 124/82; PULSE 76; O2SAT 97; BMI 31.3
--- NOTE | 2023-12-20 08:46 | MHC.PC.OV ---
Vital Signs 12/20/23 08:46 Height 5 ft 2 in Weight 171 lb 0.8 oz BMI 31.3 BP 124/82 Blood Pressure Location Lt brachial Position Sitting Pulse 76 Pulse Source Pulse Oximeter Pulse Oximetry (%) 97 Oxygen Delivery Method Room Air Intake Visit Reasons: DM Fitness Supervisor Required: No Allergies Penicillins [PENICILLINS] Allergy (Intermediate, Verified 12/20/23 08:46) STOMACH UPSET Tobacco use date assessed: 12/20/23 Dental Screening Dental Screen Date: 09/17/23 HPI DM HPI Details 53-year-old obese male with controlled diabetes mellitus GERD hypertension generalized anxiety disorder hypercholesterolemia asthma last seen in September 2023. Colonoscopy was last done in November 2021 tubular adenoma. Review of the notes patient had an MRI of the right knee seeing Orthopedics 12/19/2023 has had twisted knee MRI showing meniscal tear medial PFSH Medical History COVID-19 vaccine series completed Elevated ferritin level Anemia Colon cancer screening Numbness of left hand Radicular pain in left arm Desensitization to allergy shot Attention deficit disorder History of renal calculi Impaired fasting glucose Vitamin B12 deficiency Vitamin D deficiency Overweight (BMI 25.0-29.9) Fatty liver Asthma Chronic back pain Anemia Hypercholesterolemia Surgical History H/O colonoscopy History of nasal surgery History of ear surgery Family History Father Bone cancer Brain cancer Mother CVD (cardiovascular disease) Stroke Maternal Uncle Heart disease Paternal Uncle Bone cancer Lung cancer Sister Lung cancer Bipolar 1 disorder Other Prostate cancer Social History Household Members: Significant Other Housing: Apartment Are you a primary administrator health care facility to a significant other at home: No Do you presently have visiting nurse or other home services: No Alcohol intake: current Alcohol intake frequency: a few times a month Comment: once a week 2-3 beers Patient Tobacco Use Status: Never used Tobacco e-Cigarette/Vaping Use: Never Used Second Hand Smoke Exposure: No service: No Current occupational status: disabled Current occupation: Right hand dominate Current occupational exposures/hazards: No Cognitive needs: No Hearing needs: No Vision needs: Yes Questionnaire Thrive Questionnaire Date Thrive assessed: 09/17/23 AUDIT C Alcohol Use Questionnaire (AUDIT-C) 1. How often do you have a drink containing alcohol?: 2-4 times a month 2. How many drinks containing alcohol do you have on a typical day when you are drinking?: 3 or 4 3. How often do you have six or more drinks on one occasion?: Never Total Score: 3 ANAT-7 AMB Questionnaire ANAT-7 Date ANAT - 7 assessed: 09/17/23 Source: Developed by Drs. Farshad Gimenez, Anna Marie Denis, Balwinder Coffey and colleagues, with an educational aliyah from [employer]. Physical exam (Primary Care) Vital Signs: Last Vital Signs Pulse 76 12/20/23 08:46 BP 124/82 12/20/23 08:46 Pulse Ox 97 12/20/23 08:46 Oxygen Delivery Method Room Air 12/20/23 08:46 BMI result Body Mass Index 31.3 Tobacco/Smoking Status: Tobacco use Status Tobacco use date assessed 12/20/23 12/20/23 08:50 Patient Tobacco Use Status Never used Tobacco 12/20/23 08:50 e-Cigarette/Vaping Use Never Used 12/20/23 08:50 Thrive Assessment: Date of Thrive Assessment Date Thrive assessed 09/17/23 12/20/23 08:50 Const General: alert; No acute distress Eyes Conjunctivae: conjunctivae normal Resp Auscultation: clear to auscultation bilaterally Cardio Rate: regular rate Rhythm: regular rhythm GI Inspection: Yes normal to inspection Extrem General: Yes normal to inspection and No edema Assessment and Plan Assessment & Plan (1) Type 2 diabetes mellitus with hyperglycemia: Comment: dr. Green Code(s): E11.65 - Type 2 diabetes mellitus with hyperglycemia Plan: Decrease the amount of carbohydrate intake, pasta, bread, rice and potatoes are all sugar and that is aside from all the sweet stuff, remember that fruits are good but they are Sweet also. Hemoglobin A1c goal of less than 6.5 patient on diet control (2) Hypercholesterolemia: Code(s): E78.00 - Pure hypercholesterolemia, unspecified Plan: Avoid fried foods, chicken skin, eggs, butter margarine, pastries and meat. Be it pork or beef they have a lot of cholesterol presently on simvastatin 10 mg once a day LDL goal of less than 100 and triglyceride of less than 150. (3) Obesity (BMI 30-39.9): Code(s): E66.9 - Obesity, unspecified Plan: Diet and exercise (4) Tear of medial meniscus of right knee: Code(s): S83.241A - Other tear of medial meniscus, current injury, right knee, initial encounter Plan: Patient is being followed up by orthopedics and planned surgery January 11, 2024 (5) Asthma: Comment: stable- Code(s): J45.909 - Unspecified asthma, uncomplicated Plan: Continue with albuterol and presently on Symbicort Orders: Orders Comprehensive Met. Panel 3 Months E78.00 - Pure hypercholesterolemia, unspecified Lipid Panel 3 Months E78.00 - Pure hypercholesterolemia, unspecified Hemoglobin A1c 3 Months E78.00 - Pure hypercholesterolemia, unspecified Medications: Changed From gabapentin 100 mg PO BEDTIME 90 caps 1RF E11.65 - Type 2 diabetes mellitus with hyperglycemia To gabapentin 300 mg PO BEDTIME 30 caps 2RF E11.65 - Type 2 diabetes mellitus with hyperglycemia Coding Level of Care Code Est Pt Level 4 (20577) Diagnoses Type 2 diabetes mellitus with hyperglycemia E11.65 Hypercholesterolemia E78.00 Obesity (BMI 30-39.9) E66.9 Tear of medial meniscus of right knee S83.241A Asthma J45.909
== END 2023-12-20 09:13 | disposition home or self-care (01) ==
PROVIDERS: PCP Internal Medicine; Visit Provider Internal Medicine
DX: E11.65 Type 2 diabetes mellitus with hyperglycemia (principal); E78.00 Pure hypercholesterolemia, unspecified; E66.9 Obesity, unspecified; Z68.31 Body mass index [BMI] 31.0-31.9, adult; S83.241A Other tear of medial meniscus, current injury, right knee, initial encounter; J45.909 Unspecified asthma, uncomplicated
CPT/HCPCS: 99214

== ENCOUNTER 2024-01-11 08:14 | Day surgery (SDC) | payer OTHER, SELFPAY ==
[2024-01-09 08:21] VITALS: BMI 31.1
--- NOTE | 2024-01-09 12:11 | P.CONAN_ITS ---
Documented by User: Pari Martinez NP 01/09/24 12:12 HPI - Anesthesia Eval Consult details Narrative: 53yo M for Right Knee Arthroscopy with partial medial meniscectomy PMFSH Active Problems Active Problems: All Active Problems Tear of medial meniscus of right knee (Acute) Right knee pain (Acute) Hearing deficit (Acute) Type 2 diabetes mellitus with hyperglycemia (Acute) Right inguinal hernia (Acute) GERD (gastroesophageal reflux disease) (Acute) Hypertension (Acute) DDD (degenerative disc disease), lumbar (Acute) Annual physical exam (Acute) Generalized anxiety disorder (Acute) Obesity (BMI 30-39.9) (Acute) COVID-19 virus infection (Acute) Elevated ferritin level (Chronic) Sciatic nerve pain (Acute) Radicular syndrome of left lower extremity (Acute) Fatty liver (Acute) Asthma (Acute) Desensitization to allergy shot (Acute) Hypercholesterolemia (Acute) Past Medical History Medical History Arthritis COVID-19 vaccine series completed Elevated ferritin level Anemia Colon cancer screening Numbness of left hand Radicular pain in left arm Desensitization to allergy shot Attention deficit disorder History of renal calculi Impaired fasting glucose Vitamin B12 deficiency Vitamin D deficiency Overweight (BMI 25.0-29.9) Fatty liver Asthma Chronic back pain Hypercholesterolemia Family History Family History Father Bone cancer Brain cancer Mother CVD (cardiovascular disease) Stroke Maternal Uncle Heart disease Paternal Uncle Bone cancer Lung cancer Sister Lung cancer Bipolar 1 disorder Other Prostate cancer Family history of problems with anesthesia: No Surgical History Surgical History H/O colonoscopy History of nasal surgery History of ear surgery History of Problems with Anesthesia: No Social History Social History Household Members: Significant Other Housing: Apartment Are you a primary health care law specialist to a significant other at home: No Do you presently have visiting nurse or other home services: No Alcohol intake: current Alcohol intake frequency: a few times a month Comment: once a week 2-3 beers Patient Tobacco Use Status: Never used Tobacco e-Cigarette/Vaping Use: Never Used Second Hand Smoke Exposure: No Use of substances other than those prescribed or required for medical reasons: No Are you DNR?: No Advance Directives: No Advance Directives Information Provided: Yes service: No Current occupational status: disabled Current occupation: Right hand dominate Current occupational exposures/hazards: No Cognitive needs: No Hearing needs: No Vision needs: Yes Meds Allergies Allergy/AdvReac Type Severity Reaction Status Date / Time Penicillins [PENICILLINS] Allergy Intermediate STOMACH Verified 01/11/24 08:22 UPSET fentanyl AdvReac Severe Difficulty Verified 01/11/24 11:30 Breathing Home Medications ?Medication ?Instructions ?Recorded ?Confirmed ?Last Taken ?Type mirtazapine 15 mg tablet 15 mg PO BEDTIME 07/27/20 01/11/24 Unknown History quetiapine 200 mg tablet (Seroquel) 200 mg PO BEDTIME 01/27/21 01/11/24 Unknown History Exam Height,Weight and Vital Signs: Height 5 ft 2 in Weight 77.111 kg Pertinent Lab Results Pertinent Lab Results: Laboratory Tests 12/12/23 10:47 WBC 5.8 Hgb 14.6 Hct 44.1 Plt Count 231 Sodium 139 Potassium 4.1 Chloride 105 Carbon Dioxide 24 BUN 12 Creatinine 0.84 Assessment and Plan Assessment Anesthesia Assessment: Chart Reviewed Final Anesthetic Review Family History of Problems with Anesthesia: No History of Problems with Anesthesia: No Documented by User: Jade Shipman MD 01/11/24 12:03 HPI - Anesthesia Eval Consult details Narrative: 53yo M for Right Knee Arthroscopy with partial medial meniscectomy 01/11/24: Patient sounding very muffled/ stuffy. States bothered by allergies. Took his allergy medicine this morning. Denies recent cough, cold, fever. Also used his inhaler. Lungs CTAB. Patient noted in chart to have DM, HTN, GERD. Denies all and is not on medication for these conditions. [facility] Past Medical History Medical History Arthritis COVID-19 vaccine series completed Elevated ferritin level Anemia Colon cancer screening Numbness of left hand Radicular pain in left arm Desensitization to allergy shot Attention deficit disorder History of renal calculi Impaired fasting glucose Vitamin B12 deficiency Vitamin D deficiency Overweight (BMI 25.0-29.9) Fatty liver Asthma Chronic back pain Hypercholesterolemia Family History Family History Father Bone cancer Brain cancer Mother CVD (cardiovascular disease) Stroke Maternal Uncle Heart disease Paternal Uncle Bone cancer Lung cancer Sister Lung cancer Bipolar 1 disorder Other Prostate cancer Family history of problems with anesthesia: No Surgical History Surgical History H/O colonoscopy History of nasal surgery History of ear surgery History of Problems with Anesthesia: No Social History Social History Household Members: Significant Other Housing: Apartment Are you a primary health care law specialist to a significant other at home: No Do you presently have visiting nurse or other home services: No Alcohol intake: current Alcohol intake frequency: a few times a month Comment: once a week 2-3 beers Patient Tobacco Use Status: Never used Tobacco e-Cigarette/Vaping Use: Never Used Second Hand Smoke Exposure: No Use of substances other than those prescribed or required for medical reasons: No Are you DNR?: No Advance Directives: No Advance Directives Information Provided: Yes service: No Current occupational status: disabled Current occupation: Right hand dominate Current occupational exposures/hazards: No Cognitive needs: No Hearing needs: No Vision needs: Yes Meds Allergies Allergy/AdvReac Type Severity Reaction Status Date / Time Penicillins [PENICILLINS] Allergy Intermediate STOMACH Verified 01/11/24 08:22 UPSET fentanyl AdvReac Severe Difficulty Verified 01/11/24 11:30 Breathing Home Medications ?Medication ?Instructions ?Recorded ?Confirmed ?Last Taken ?Type mirtazapine 15 mg tablet 15 mg PO BEDTIME 07/27/20 01/11/24 Unknown History quetiapine 200 mg tablet (Seroquel) 200 mg PO BEDTIME 01/27/21 01/11/24 Unknown History Exam Height,Weight and Vital Signs: Height 5 ft 2 in Weight 77.111 kg Vital Signs Temp Pulse Resp BP Pulse Ox O2 Del Method 01/11/24 08:34 96.8 F 81 15 130/84 97 Room Air Pertinent Lab Results Pertinent Lab Results: Laboratory Tests 12/12/23 10:47 WBC 5.8 Hgb 14.6 Hct 44.1 Plt Count 231 Sodium 139 Potassium 4.1 Chloride 105 Carbon Dioxide 24 BUN 12 Creatinine 0.84 Airway Mallampati Class: III (Narrow high arched palate) TM Dist: >3cm Neck ROM: Full Loose/Missing/Broken Teeth: Yes (Broken tooth top back right and left, missing molars. Denies loose teeth) Heart: RRR Lungs: CTAB Assessment and Plan Assessment Anesthesia Assessment: Anesthesia Plan Discussed and Chart Reviewed Final Anesthetic Review Family History of Problems with Anesthesia: No History of Problems with Anesthesia: No NPO: Yes ASA Class: III Final Preanesthetic Review: No Changes in Pt Med Stat, Meds/Allgs Chart Reviewed, Consent Obtained/Reviewed and Anes Risks/Benef Reviewed Patient Risk: Intermediate Procedure Risk: Low Assessment/Block/Sedation in SS: Assess/Block/Sedation-SS Anesthetic Plan Anesthetic Plan: GA Disposition: Standard PACU
[2024-01-11 08:24] VITALS: BMI 30.9
[2024-01-11 08:34] VITALS: BP 130/84; PULSE 81; RESP 15; TEMP 36; O2SAT 97
[2024-01-11] MEDS: Lactated Ringers 1,000 ML 100 ML IVCONT (08:44)
[2024-01-11 11:22] VITALS: BP 139/91; PULSE 93; RESP 16; TEMP 36.3; O2SAT 98
--- NOTE | 2024-01-11 11:22 | PM.OP ---
Brief Operative Note Date of Service: 01/11/24 Pre-op diagnosis: Right knee medial meniscus tear, right knee degenerative joint disease Post-op diagnosis: same Procedure: Right knee diagnostic arthroscopy with right knee arthroscopic partial medial meniscectomy, right knee arthroscopic chondroplasty of the medial femoral condyle Implants: Non Surgeon: Justino Gibbons MD Anesthesia: GLMA Was an River Expedition Guide used for this Procedure?: No Estimated blood loss (mL): 10 Pathology: none sent Condition: stable Disposition: PACU
--- NOTE | 2024-01-11 11:23 | W.PM.OPN ---
Operative Note Operative Note Date of Service: 01/11/24 Narrative: After the patient was identified as Ishan Davenport and his right knee was initialed by myself they were brought to the operating room where general anesthesia was induced by the anesthesiologist in routine fashion. Because of his allergy to penicillins the patient was given 900 mg of IV clindamycin for infection prophylaxis. A formal time-out was completed. The patient's right lower extremity was prepped and draped in sterile fashion. Marcaine with epinephrine was injected into the planned incision sites as well as their right knee joint. A # 11 scalpel blade was used to make an anterolateral portal 1 cm proximal to the joint line and 1 cm lateral to the patellar tendon. Blunt trocar technique was used into the suprapatellar pouch with the knee in extension. Diagnostic arthroscopy showed multiple bands of thickened plica which would be excised at the end of the procedure. There were no loose bodies or abnormalities found in either the medial or lateral gutters. There were diffuse grades 1 and 2 degenerative changes of the undersurface of the patella as well as grades 1 and 2 degenerative changes of the trochlear groove. The patient's knee was flexed to 45 degrees and a valgus force was placed upon it. The medial compartment was entered. An anteromedial portal was made 1 cm proximal to the joint line and 1 cm medial to the patellar tendon. Probing of the medial meniscus showed a radial tear of the posterior horn. A partial medial meniscectomy was performed using the arthroscopic shaver. Following the partial meniscectomy the remainder of the meniscus tissue was stable. There were diffuse grade 2 degenerative changes of the medial femoral condyle as well as diffuse grade 2 degenerative changes of the medial tibial plateau. The articular surface of the medial femoral condyle was made smooth using the arthroscopic shaver. The articular surface of the medial tibial plateau was already smooth so no chondroplasty was indicated. The patient's knee was then placed into a neutral position. There was no injury to the anterior cruciate ligament. The patient's knee was then placed into the figure of 4 position and the lateral compartment was entered. There were minimal degenerative changes of the lateral femoral condyle and lateral tibial plateau. There was no evidence of lateral meniscus tearing. The patient's knee was once again brought into extension and the suprapatellar pouch was entered. The arthroscopic shaver and the ArthroCare Wand were used to excise the thickened bands of plica. The articular surfaces of the patella and trochlear groove were smooth so no chondroplasty was indicated. The knee joint was irrigated and then drained. All arthroscopic instruments were removed. The 2 portals were closed with 3-0 nylon interrupted suture. The knee joint was injected with Marcaine. Dry sterile dressing and Ricardo bandages were placed over the patient's knee. The patient was awoken and extubated in the operating room. They were transferred to the recovery room in stable condition.
[2024-01-11 11:27] VITALS: BP 140/94; PULSE 98; RESP 16; O2SAT 98
[2024-01-11 11:32] VITALS: BP 125/95; PULSE 85; RESP 17; O2SAT 94
[2024-01-11 11:37] VITALS: BP 135/85; PULSE 84; RESP 18; O2SAT 96
[2024-01-11 11:52] VITALS: BP 132/91; PULSE 72; RESP 18; TEMP 36.1; O2SAT 96
== END 2024-01-11 12:35 | disposition home or self-care (01) ==
PROVIDERS: PCP Internal Medicine; Visit Provider Orthopaedic Surgery
PROC: (CPT 29870; principal; 2024-01-11 09:40)
DX: S83.241A Other tear of medial meniscus, current injury, right knee, initial encounter (principal); J45.909 Unspecified asthma, uncomplicated; D64.9 Anemia, unspecified; Z79.899 Other long term (current) drug therapy; Z88.0 Allergy status to penicillin; X50.1XXA Overexertion from prolonged static or awkward postures, initial encounter; Y93.H9 Activity, other involving exterior property and land maintenance, building and construction; Y92.9 Unspecified place or not applicable; Y99.9 Unspecified external cause status
CPT/HCPCS: 29881; J0131; J0171; J0736; J1100; J1885; J2250; J2405; J2704; J2795; J3010

== ENCOUNTER → 2024-01-11 08:14 | Outpatient (BNV) | payer OTHER, SELFPAY | PROVIDERS: PCP Internal Medicine; Visit Provider Orthopaedic Surgery | DX: S83.241A Other tear of medial meniscus, current injury, right knee, initial encounter (principal) | CPT/HCPCS: 29881 ==

== ENCOUNTER 2024-01-24 11:36 | Outpatient (AMB) | payer OTHER, SELFPAY ==
--- NOTE | 2024-01-24 11:38 | A.OFFVIS_ITS ---
Vital Signs 01/24/24 11:41 Height 5 ft 2 in Weight 169 lb BMI 30.9 Intake Visit Reasons: PO RT knee 01/11/24 Intake Note: Ishan a 53 year old male who presents today for a post operative right knee on 01/11/24 Patient reports he is doing well, states tolerable pain here and there. He has a tightness sensation and mentions having a cramp in his calf yesterday. States the past couple of days he has been using an exercise bike that has been helping with his stiffness. Allergies Penicillins [PENICILLINS] Allergy (Intermediate, Verified 01/24/24 11:45) STOMACH UPSET fentanyl Adverse Reaction (Severe, Verified 01/24/24 11:45) Difficulty Breathing HPI HPI PO RT knee 01/11/24 DR: Details: 53-year-old male who returns to the office today for post-op right knee , 01/11/[address] Gibbons. He states he has intermittent tolerable pain in his knee. He also experiences tightness sensation in his knee and mentions having a cramp in his calf yesterday. He has been working on his exercises bike that has been helping with his stiffness. He is doing well overall and has no concerns today. [facility] Medical History Arthritis COVID-19 vaccine series completed Elevated ferritin level Anemia Colon cancer screening Numbness of left hand Radicular pain in left arm Desensitization to allergy shot Attention deficit disorder History of renal calculi Impaired fasting glucose Vitamin B12 deficiency Vitamin D deficiency Overweight (BMI 25.0-29.9) Fatty liver Asthma Chronic back pain Hypercholesterolemia Surgical History H/O colonoscopy History of nasal surgery History of ear surgery Family History Father Bone cancer Brain cancer Mother CVD (cardiovascular disease) Stroke Maternal Uncle Heart disease Paternal Uncle Bone cancer Lung cancer Sister Lung cancer Bipolar 1 disorder Other Prostate cancer Social History Household Members: Significant Other Housing: Apartment Are you a primary healthcare administration intern to a significant other at home: No Do you presently have visiting nurse or other home services: No Alcohol intake: current Alcohol intake frequency: a few times a month Comment: once a week 2-3 beers Patient Tobacco Use Status: Never used Tobacco e-Cigarette/Vaping Use: Never Used Second Hand Smoke Exposure: No service: No Current occupational status: disabled Current occupation: Right hand dominate Current occupational exposures/hazards: No Cognitive needs: No Hearing needs: No Vision needs: Yes Review of Systems Const All systems reviewed & are unremarkable except as noted in HPI and below Physical Exam Vital Signs: BMI result Body Mass Index 30.9 Extrem Other: Right knee: Incision clean, dry and intact. No redness or drainage. He has full ROM. Calf supple, nontender. NVI. Results Reviewed Results Reviewed: Brief Operative Note Date of Service: 01/11/24 Pre-op diagnosis: Right knee medial meniscus tear, right knee degenerative joint disease Post-op diagnosis: same Procedure: Right knee diagnostic arthroscopy with right knee arthroscopic partial medial meniscectomy, right knee arthroscopic chondroplasty of the medial femoral condyle Implants: Non Surgeon: Justino Gibbons MD Assessment & Plan Assessment & Plan (1) Tear of medial meniscus of right knee: Code(s): S83.241A - Other tear of medial meniscus, current injury, right knee, initial encounter Category: Medical Plan Sutures removed today, steri strips applied. I did recommend him physical therapy which he will hold off at this time as he is working on his own exercises. He will increase activities as tolerated and he will use caution will any type of deep bending, kneeling, twisting, pivoting, or squatting. I would like to see him back in [address] Gibbons, sooner if needed. ? Patient Instructions: Scribed for Magno Alfaro PA-C, by Dl Nicholas registered medical transcriptionist, on 01/24/2024 at 11:30 AM EST.? I, Magno Alfaro PA-C, have personally reviewed and agree with the information entered by the scribe. Coding Level of Care Code Global (37910) Diagnoses Tear of medial meniscus of right knee S83.241A
[2024-01-24 11:41] VITALS: BMI 30.9
== END 2024-01-24 12:32 | disposition home or self-care (01) ==
PROVIDERS: PCP Internal Medicine; Visit Provider Physician Assistant
DX: S83.241A Other tear of medial meniscus, current injury, right knee, initial encounter (principal)
CPT/HCPCS: 99024

== ENCOUNTER → 2024-01-24 11:36 | Outpatient (BNVA) | payer OTHER, SELFPAY | PROVIDERS: PCP Internal Medicine; Visit Provider Physician Assistant | DX: S83.241D Other tear of medial meniscus, current injury, right knee, subsequent encounter (principal) | CPT/HCPCS: 99212 ==

== ENCOUNTER 2024-02-21 09:54 | Outpatient (AMB) | payer OTHER, SELFPAY ==
--- NOTE | 2024-02-21 10:27 | MHC.OFFVIS ---
Vital Signs 02/21/24 10:34 Height 5 ft 2 in Weight 169 lb BMI 30.9 Intake Visit Reasons: PO-RT knee f/u 01/11/24 Intake Note: Ishan a 53 year old male who presents today for a post operative right knee on 01/11/24 Patient reports he has been having pain and discomfort at the medial aspect of knee and as well as a clicking. States having a tingling sensation in his knee. He continues to use at home exercise bike. Allergies Penicillins [PENICILLINS] Allergy (Intermediate, Verified 02/21/24 10:42) STOMACH UPSET fentanyl Adverse Reaction (Severe, Verified 02/21/24 10:42) Difficulty Breathing Medication List - Last Reconciled 02/21/24 by Magno Alfaro PA-C albuterol sulfate 90 mcg/actuation (Ventolin HFA) 2 puffs inhalation Q6H PRN blood pressure monitor (Blood Pressure Kit) As directed budesonide-formoterol 160-4.5 mcg/actuation (Symbicort) 2 puffs inhalation BID cetirizine 10 mg PO DAILY diclofenac sodium 1% (Voltaren Arthritis Pain) 4 grams topical QID fluticasone propionate 50 mcg/actuation 2 sprays intranasal DAILY gabapentin 300 mg PO BEDTIME hydrocortisone 2.5% 1 appl topical BID PRN mirtazapine 15 mg PO BEDTIME quetiapine (Seroquel) 200 mg PO BEDTIME simvastatin 10 mg PO BEDTIME 90 days HPI HPI PO-RT knee f/u 01/11/24 DR: Details: 54-year-old male who returns to the office today for a follow-up of right knee , 01/11/[address] Gibbons. He states he has pain, soreness and discomfort at the medial aspect of his knee. He also experiences tingling sensation as well as clicking in his knee. He continues to use his home exercise bike. He is doing well otherwise and has no other concerns today. [facility] Medical History Arthritis COVID-19 vaccine series completed Elevated ferritin level Anemia Colon cancer screening Numbness of left hand Radicular pain in left arm Desensitization to allergy shot Attention deficit disorder History of renal calculi Impaired fasting glucose Vitamin B12 deficiency Vitamin D deficiency Overweight (BMI 25.0-29.9) Fatty liver Asthma Chronic back pain Hypercholesterolemia Surgical History H/O colonoscopy History of nasal surgery History of ear surgery Family History Father Bone cancer Brain cancer Mother CVD (cardiovascular disease) Stroke Maternal Uncle Heart disease Paternal Uncle Bone cancer Lung cancer Sister Lung cancer Bipolar 1 disorder Other Prostate cancer Social History Household Members: Significant Other Housing: Apartment Are you a primary direct care provider to a significant other at home: No Do you presently have visiting nurse or other home services: No Alcohol intake: current Alcohol intake frequency: a few times a month Comment: once a week 2-3 beers Patient Tobacco Use Status: Never used Tobacco e-Cigarette/Vaping Use: Never Used Second Hand Smoke Exposure: No service: No Current occupational status: disabled Current occupation: Right hand dominate Current occupational exposures/hazards: No Cognitive needs: No Hearing needs: No Vision needs: Yes Review of Systems Const All systems reviewed & are unremarkable except as noted in HPI and below Physical Exam Vital Signs: BMI result Body Mass Index 30.9 Extrem Other: Right knee: Incision clean, dry and intact. No redness or drainage. He has full ROM. Calf supple, nontender. NVI. Assessment & Plan Assessment & Plan (1) Tear of medial meniscus of right knee: Code(s): S83.241A - Other tear of medial meniscus, current injury, right knee, initial encounter Category: Medical Plan I stressed the importance of working with physical therapy and offered him which he again declined. He insists he is working on therapy exercises at home and riding his bicycle. He will continue to increase activities as tolerated and if he has some discomfort with stair climbing or bending, he will contact the office for a formal therapy prescription, otherwise follow-up as needed. Patient Instructions: Scribed for Magno Alfaro PA-C, by Dl Nicholas medical device sales representative, on 02/21/2024 at 10:15 AM EST.? I, Magno Alfaro PA-C, have personally reviewed and agree with the information entered by the scribe. Coding Level of Care Code Global (46977) Diagnoses Tear of medial meniscus of right knee S83.241A
[2024-02-21 10:34] VITALS: BMI 30.9
== END 2024-02-21 12:22 | disposition home or self-care (01) ==
PROVIDERS: PCP Internal Medicine; Visit Provider Physician Assistant
DX: S83.241A Other tear of medial meniscus, current injury, right knee, initial encounter (principal)
CPT/HCPCS: 99024

== ENCOUNTER → 2024-02-21 09:54 | Outpatient (BNVA) | payer OTHER, SELFPAY | PROVIDERS: PCP Internal Medicine; Visit Provider Physician Assistant | DX: S83.241D Other tear of medial meniscus, current injury, right knee, subsequent encounter (principal) | CPT/HCPCS: 99212 ==

== ENCOUNTER 2024-04-30 11:29 | Outpatient (REF) | payer OTHER, SELFPAY ==
[2024-04-30 12:07] LABS: Estimated Average Glucose 126 mg/dL
[2024-04-30 12:33] LABS: Alanine Aminotransferase 70 U/L (0-40); Albumin Level 4.3 g/dL (3.5-5.0); Alkaline Phosphatase 59 U/L (39-117); Anion Gap 8 (12-20); Aspartate Amino Transferase 32 U/L (5-37); Bilirubin Total 0.3 mg/dL (0.0-1.0); Blood Urea Nitrogen 10 mg/dL (9-16); Calcium 9.2 mg/dL (8.4-10.2); Carbon Dioxide 29 mmol/L (22-29); Chloride 107 mmol/L (96-108); Cholesterol 175 mg/dL (<200); Estimated Glomerular Filt Rate > 60; Glucose Random 118 mg/dL (60-115); HDL Cholesterol 49 mg/dL (>40); LDL Cholesterol Calculated 99 mg/dL (<100); Potassium 3.8 mmol/L (3.3-5.1); Sodium 140 mmol/L (135-145); Total Protein 7.5 g/dL (6.5-8.0); Triglycerides 139 mg/dL (<150)
== END 2024-04-30 11:30 | disposition home or self-care (01) ==
LOC: HO.LAB 11:29
PROVIDERS: PCP Internal Medicine; Visit Provider Internal Medicine
DX: E11.65 Type 2 diabetes mellitus with hyperglycemia (principal); E78.00 Pure hypercholesterolemia, unspecified
CPT/HCPCS: 36415; 80053; 80061; 82570; 83036

== ENCOUNTER 2024-05-13 09:29 | Outpatient (AMB) | payer OTHER, SELFPAY ==
[2024-05-13 09:31] VITALS: BP 146/90; PULSE 94; O2SAT 98; BMI 32.2
--- NOTE | 2024-05-13 09:31 | A.OFFPC_ITS ---
Vital Signs 05/13/24 09:31 Height 5 ft 2 in Weight 176 lb BMI 32.2 BP 146/90 H Blood Pressure Location Lt brachial Position Sitting Pulse 94 Pulse Source Pulse Oximeter Pulse Oximetry (%) 98 Oxygen Delivery Method Room Air Intake Visit Reasons: DM, R torn meniscus Intake Note: Patient is here to follow up Older Adult Social Work Specialist Required: No Allergies Penicillins [PENICILLINS] Allergy (Intermediate, Verified 05/13/24 09:32) STOMACH UPSET fentanyl Adverse Reaction (Severe, Verified 05/13/24 09:32) Difficulty Breathing Medication List - Last Reconciled 05/13/24 by Allyn Fitzgerald MD albuterol sulfate 90 mcg/actuation (Ventolin HFA) 2 puffs inhalation Q6H PRN blood pressure monitor (Blood Pressure Kit) As directed budesonide-formoterol 160-4.5 mcg/actuation (Symbicort) 2 puffs inhalation BID cetirizine 10 mg PO DAILY diclofenac sodium 1% (Voltaren Arthritis Pain) 4 grams topical QID fluticasone propionate 50 mcg/actuation 2 sprays intranasal DAILY gabapentin 400 mg PO BEDTIME hydrocortisone 2.5% 1 appl topical BID PRN mirtazapine 15 mg PO BEDTIME quetiapine (Seroquel) 200 mg PO BEDTIME simvastatin 10 mg PO BEDTIME 90 days Tobacco use date assessed: 12/20/23 Dental Screening Dental Screen Date: 09/17/23 HPI DM, R torn meniscus HPI Details 54-year-old obese male with diabetes mame litus hypercholesterolemia coming in for follow-up. Patient also has asthma colon test is up-to-date 11/30/2021. Patient was referred to Hematology Oncology due to the high ferritin and was on iron before and has stopped this hemochromatosis gene analysis negative. Advised to follow-up. Patient has had surgery for the right knee december 2023 under Orthopedics had knee arthroscopic surgery 01/11/2024 [facility] Medical History (Updated 02/22/24 @ 11:42 by Virginie Young MD) Arthritis COVID-19 vaccine series completed Elevated ferritin level Anemia Colon cancer screening Numbness of left hand Radicular pain in left arm Desensitization to allergy shot Attention deficit disorder History of renal calculi Impaired fasting glucose Vitamin B12 deficiency Vitamin D deficiency Overweight (BMI 25.0-29.9) Fatty liver Asthma Chronic back pain Hypercholesterolemia Surgical History (Updated 02/22/24 @ 11:42 by Virginie Young MD) Status post right knee surgery H/O colonoscopy History of nasal surgery History of ear surgery Family History Father Bone cancer Brain cancer Mother CVD (cardiovascular disease) Stroke Maternal Uncle Heart disease Paternal Uncle Bone cancer Lung cancer Sister Lung cancer Bipolar 1 disorder Other Prostate cancer Social History Household Members: Significant Other Housing: Apartment Are you a primary technical healthcare consultant to a significant other at home: No Do you presently have visiting nurse or other home services: No Alcohol intake: current Alcohol intake frequency: a few times a month Comment: once a week 2-3 beers Patient Tobacco Use Status: Never used Tobacco e-Cigarette/Vaping Use: Never Used Second Hand Smoke Exposure: No service: No Current occupational status: disabled Current occupation: Right hand dominate Current occupational exposures/hazards: No Cognitive needs: No Hearing needs: No Vision needs: Yes Questionnaire Thrive Questionnaire Date Thrive assessed: 09/17/23 I am a: Patient What is your living situation today?: I have a steady place to live Within the past 12 months, did the food you bought not last and you didn't have the money to get more?: Never true Within the past 12 months, did you worry whether your food would run out before you got money to buy more?: Never true Do you have trouble paying for medicines?: No Do you have trouble getting transportation to medical appointments?: No Do you have trouble paying your heating and electricity bill?: No Do you have trouble taking care of your child, family member or friend?: No Do you have trouble with day-to-day activities such as bathing, preparing meals, shopping, managing finances, etc.?: No Are you currently unemployed and looking for a job?: Yes Are you interested in more education?: No Please select the resources that you would like help with: None Currently or been in a relationship where the following occur: No concerns reported THRIVE Score: 0 AUDIT C Alcohol Use Questionnaire (AUDIT-C) 1. How often do you have a drink containing alcohol?: 2-4 times a month 2. How many drinks containing alcohol do you have on a typical day when you are drinking?: 3 or 4 3. How often do you have six or more drinks on one occasion?: Never Total Score: 3 ANAT-7 AMB Questionnaire ANAT-7 Date ANAT - 7 assessed: 09/17/23 Source: Developed by Drs. Farshad Gimenez, Anna Marie Denis, Balwinder Coffey and colleagues, with an educational aliyah from [employer]. Physical exam (Primary Care) Vital Signs: Last Vital Signs Pulse 94 05/13/24 09:31 BP 146/90 H 05/13/24 09:31 Pulse Ox 98 05/13/24 09:31 Oxygen Delivery Method Room Air 05/13/24 09:31 BMI result Body Mass Index 32.2 Tobacco/Smoking Status: Tobacco use Status Tobacco use date assessed 12/20/23 05/13/24 09:33 Patient Tobacco Use Status Never used Tobacco 05/13/24 09:33 e-Cigarette/Vaping Use Never Used 05/13/24 09:33 Thrive Assessment: Date of Thrive Assessment Date Thrive assessed 09/17/23 05/13/24 09:33 Currently or been in a relationship where the following occur: No concerns reported Const General: alert; No acute distress Eyes Conjunctivae: conjunctivae normal Resp Auscultation: clear to auscultation bilaterally Cardio Rate: regular rate Rhythm: regular rhythm GI Inspection: Yes normal to inspection Extrem General: Yes normal to inspection and No edema Office Procedures Flu Questionnaire Does the patient have a severe egg allergy?: No Does the patient have severe life threatening allergies?: No Does the patient have a fever or illness today?: No Has the patient ever had Guillain-Chula Syndrome?: No Has the patient ever had any past reaction to a flu shot?: No Immunizations Fluarix Triv [id number] (PF) 45 mcg (15 mcg x 3)/0.5 mL IM syringe Performing Provider: Allyn Fitzgerald MD [place] Administered by: ROCKY Jameson on 05/13/24 09:41 Dose Route Admin Location Dispensed Lot Number Expiration Date [facility] Administration Vice President 0.5 mL IM Left Deltoid 0.5 mL [id number] 02/09/25 [id number] [email or web address] VIS Given Date VIS Provided VIS Publication Date 05/13/24 Single Vaccine 21 Eligibility Eligibility Date Funding Source Not [facility] Eligible 05/13/24 Private Coding Level of Care Code Est Pt Level 4 (43402) Diagnoses Type 2 diabetes mellitus with hyperglycemia E11.65 GERD (gastroesophageal reflux disease) K21.9 Hypertension I10 Obesity (BMI 30-39.9) E66.9 Hypercholesterolemia E78.00 Generalized anxiety disorder F41.1 Elevated ferritin level R79.89 Tear of medial meniscus of right knee S83.241A Assessment & Plan Assessment & Plan (1) Type 2 diabetes mellitus with hyperglycemia: Comment: dr. Green Code(s): E11.65 - Type 2 diabetes mellitus with hyperglycemia Category: Medical Plan: Decrease the amount of carbohydrate intake, pasta, bread, rice and potatoes are all sugar and that is aside from all the sweet stuff, remember that fruits are good but they are Sweet also. Hemoglobin A1c goal of less than 6.5 patient is diet controlled (2) GERD (gastroesophageal reflux disease): Code(s): K21.9 - Gastro-esophageal reflux disease without esophagitis Category: Medical Plan: Avoid the foods that causes that usually spicy foods, tomato products, juices, coffee, soda and foods that your sensitive to. After eating do not lie down, allow 3-4 hours before in lie down. And keep the head of bed above 30 degrees to avoid the acid from going up. (3) Hypertension: Comment: getting hypotension - stop BP med 09/2023 Code(s): I10 - Essential (primary) hypertension Category: Medical Plan: Continue with blood pressure medication. Decrease salt intake and exercise patient is on no medication for blood pressure because of hypotensive responses. (4) Obesity (BMI 30-39.9): Code(s): E66.9 - Obesity, unspecified Category: Medical Plan: Diet and exercise (5) Hypercholesterolemia: Code(s): E78.00 - Pure hypercholesterolemia, unspecified Category: Medical Plan: Avoid fried foods, chicken skin, eggs, butter margarine, pastries and meat. Be it pork or beef they have a lot of cholesterol LDL goal of less than 100 and triglyceride of less than 150 on simvastatin 10 mg once a day (6) Generalized anxiety disorder: Comment: Psychiatrist Dr. Presley in [address] Q month- 2 months therapist seen Q O week Code(s): F41.1 - Generalized anxiety disorder Category: Medical Plan: Continue with present medication and psychiatric follow-up (7) Elevated ferritin level: Code(s): R79.89 - Other specified abnormal findings of blood chemistry Category: Medical Plan: Patient follows up with Hematology-Oncology and continuing to monitor (8) Tear of medial meniscus of right knee: Code(s): S83.241A - Other tear of medial meniscus, current injury, right knee, initial encounter Category: Medical Plan: 01/11/2024 surgery and decline PT but does exercise Orders: Orders Influenza [id number] Immunization Today Z23 - Encounter for immunization Medications: Changed From gabapentin 300 mg PO BEDTIME 90 caps 2RF E11.65 - Type 2 diabetes mellitus with hyperglycemia To gabapentin 400 mg PO BEDTIME 90 caps 2RF E11.65 - Type 2 diabetes mellitus with hyperglycemia
== END 2024-05-13 10:30 | disposition home or self-care (01) ==
PROVIDERS: PCP Internal Medicine; Visit Provider Internal Medicine
DX: E11.65 Type 2 diabetes mellitus with hyperglycemia (principal); K21.9 Gastro-esophageal reflux disease without esophagitis; Z68.32 Body mass index [BMI] 32.0-32.9, adult; E66.9 Obesity, unspecified; I10 Essential (primary) hypertension; E78.00 Pure hypercholesterolemia, unspecified; F41.1 Generalized anxiety disorder; R79.89 Other specified abnormal findings of blood chemistry; S83.241A Other tear of medial meniscus, current injury, right knee, initial encounter; Z23 Encounter for immunization

== ENCOUNTER → 2024-05-13 09:29 | Outpatient (BNVA) | payer OTHER, SELFPAY | PROVIDERS: PCP Internal Medicine; Visit Provider Internal Medicine | DX: Z23 Encounter for immunization (principal); E11.65 Type 2 diabetes mellitus with hyperglycemia; K21.9 Gastro-esophageal reflux disease without esophagitis; I10 Essential (primary) hypertension; E66.9 Obesity, unspecified; E78.00 Pure hypercholesterolemia, unspecified; F41.1 Generalized anxiety disorder; R79.89 Other specified abnormal findings of blood chemistry; S83.241D Other tear of medial meniscus, current injury, right knee, subsequent encounter | CPT/HCPCS: 90471; 90656; 99212 ==

== ENCOUNTER 2024-09-23 08:57 | Outpatient (AMB) | payer OTHER, SELFPAY ==
[2024-09-23 09:05] VITALS: BP 128/72; PULSE 81; O2SAT 95; BMI 32.7
--- NOTE | 2024-09-23 09:05 | A.OFFPC_ITS ---
Vital Signs 3 09/23/24 09:05 Height 5 ft 2 in Weight 179 lb BMI 32.7 BP 128/72 Blood Pressure Location Lt brachial Position Sitting Pulse 81 Pulse Source Pulse Oximeter Pulse Oximetry (%) 95 Oxygen Delivery Method Room Air Intake Visit Reasons: Annual Exam Allergies Penicillins [PENICILLINS] Allergy (Intermediate, Verified 09/23/24 09:06) STOMACH UPSET fentanyl Adverse Reaction (Severe, Verified 09/23/24 09:06) Difficulty Breathing Medication List - Last Reconciled 09/23/24 by Allyn Fitzgerald MD albuterol sulfate 90 mcg/actuation (Ventolin HFA) 2 puffs inhalation Q6H PRN blood pressure monitor (Blood Pressure Kit) As directed budesonide-formoterol 160-4.5 mcg/actuation (Symbicort) 2 puffs inhalation BID cetirizine 10 mg PO DAILY diclofenac sodium 1% (Voltaren Arthritis Pain) 4 grams topical QID fluticasone propionate 50 mcg/actuation 2 sprays intranasal DAILY gabapentin 400 mg PO BEDTIME hydrocortisone 2.5% 1 appl topical BID PRN mirtazapine 15 mg PO BEDTIME quetiapine (Seroquel) 200 mg PO BEDTIME simvastatin 10 mg PO BEDTIME 90 days Tobacco use date assessed: 09/23/24 Dental Screening Dental Screen Date: 09/23/24 Did you have a dental visit in the last 12 months?: Yes Did you have a dental problem in the last 6 months where you did not have access to dental care?: No Was dental information given to patient?: Patient has dentist HPI Annual Exam 2 HPI0 Details congestion, has hearing aids The patient is a 54-year-old male presenting with chronic medical conditions including obesity, type 2 diabetes mellitus, hypercholesterolemia, asthma, essential hypertension, and non-alcoholic fatty liver disease. His type 2 diabetes mellitus is managed with dietary control, with a target hemoglobin A1c of below 6.5%; the last result was 6.0 in April but has recently increased to 6.5. Hypercholesterolemia is being treated with simvastatin 10 mg at bedtime, with an LDL goal of less than 100 and triglycerides less than 150. He notes recent elevation in liver function tests with a level of 70. Asthma is intermittently controlled with albuterol and Symbicort, and he also experiences allergic rhinitis managed by Zyrtec and Flonase. The patient has a history of knee osteoarthritis with prior surgery in December; he reports pain off and on, notably worsened by weight gain. Gastroesophageal reflux disease is mostly under control but the patient has a chronic sleep disorder managed with gabapentin, mirtazapine, and Seroquel. Additional factors include a family history of various cancers and personal cessation of alcohol since August. - Last colonoscopy in November 2021. - Last comprehensive blood work in December; most recent hemoglobin A1c in April at 6.0, current at 6.5. - LDL cholesterol recorded at 99, elevat ion noted, on simvastatin. - Pneumonia vaccine received; due again at age 66. - Advised continuation of diet control f or diabetes. - Hypertension management through [facility]. - Recommended regular exercise, particul william biking, and attention to weight management. - Discussed importance of seasonal vacci nations due to the current viral infection climate. - No current alcohol consumption since J anuary. - Denies use of tobacco or recreational drugs. - Engages in physical activity intermitt ently, using a stationary bicycle at home. - High intake of water and coffee, noted consumption of around three cups of coffee per day. - Reports weight gain from 169 to 179 po unds in recent months, associated with reduced activity due to knee issues. - General: Reports occasional swelling, tiredness. - Respiratory: Denies recent shortness o f breath, occasional wheezing. - Gastrointestinal: History of heartburn , occasional swallowing difficulty. - Musculoskeletal: Reports hip pain, agg ravated by certain movements. - Neurological: Occasional dizziness, re ports history of fainting. - Labs: Hemoglobin A1c at 6.5 (elevation from 6.0). - Imaging: Previous MRI indicating knee issues noted in November of the last year. [facility] Medical History (Updated 09/23/24 @ 09:40 by Allyn Fitzgerald MD) Arthritis COVID-19 vaccine series completed Elevated ferritin level Anemia Colon cancer screening Numbness of left hand Radicular pain in left arm Desensitization to allergy shot Attention deficit disorder History of renal calculi Impaired fasting glucose Vitamin B12 deficiency Vitamin D deficiency Overweight (BMI 25.0-29.9) Fatty liver Asthma Chronic back pain Hypercholesterolemia Surgical History Status post right knee surgery H/O colonoscopy History of nasal surgery History of ear surgery Family History Father Bone cancer Brain cancer Mother CVD (cardiovascular disease) Stroke Maternal Uncle Heart disease Paternal Uncle Bone cancer Lung cancer Sister Lung cancer Bipolar 1 disorder Other Prostate cancer Social History (Updated 09/23/24 @ 09:25 by Allyn Fitzgerald MD) Household Members: Significant Other Housing: Apartment Are you a primary patient care to a significant other at home: No Do you presently have visiting nurse or other home services: No Alcohol intake: current Alcohol intake frequency: a few times a month Comment: once a week 2-3 beers, stopped 2024 Patient Tobacco Use Status: Never used Tobacco Tobacco use type: Cigarette e-Cigarette/Vaping Use: Never Used Second Hand Smoke Exposure: No service: No Current occupational status: disabled Current occupation: Right hand dominate Current occupational exposures/hazards: No Cognitive needs: No Hearing needs: No Vision needs: Yes Questionnaire PHQ-9 Over the last 2 weeks, how often have you been bothered by any of the following problems? 1. Little interest or pleasure in doing things: more than half the days 2. Feeling down, depressed, or hopeless: more than half the days 3. Trouble falling or staying asleep, or sleeping too much: more than half the days 4. Feeling tired or having little energy: more than half the days 5. Poor appetite or overeating: more than half the days 6. Feeling bad about yourself - or that you are a failure or have let yourself or your family down: more than half the days 7. Trouble concentrating on things, such as reading the newspaper or watching television: more than half the days 8. Moving or speaking so slowly that other people could have noticed. Or the opposite - being so fidgety or restless that you have been moving around a lot more than usual: more than half the days 9. Thoughts that you would be better off or of hurting yourself in some way: not at all Total score: 16 Depression Screening Interpretation: Positive Depression Screening Done: Yes 33434 - PHQ-9 Billing: Yes Source: Developed by Drs. Farshad Gimenez, Anna Marie Denis, Balwinder Coffey and colleagues, with an educational aliyah from [employer]. Thrive Questionnaire Date Thrive assessed: 09/23/24 I am a: Patient What is your living situation today?: I choose not to answer this question Within the past 12 months, did the food you bought not last and you didn't have the money to get more?: I choose not to answer this question Within the past 12 months, did you worry whether your food would run out before you got money to buy more?: Never true Do you have trouble paying for medicines?: No Do you have trouble getting transportation to medical appointments?: No Do you have trouble paying your heating and electricity bill?: Yes Do you have trouble taking care of your child, family member or friend?: No Do you have trouble with day-to-day activities such as bathing, preparing meals, shopping, managing finances, etc.?: No Are you currently unemployed and looking for a job?: I choose not to answer this question Are you interested in more education?: I choose not to answer this question Please select the resources that you would like help with: None Currently or been in a relationship where the following occur: Controlled Emotionally THRIVE Score: 2 AUDIT C Alcohol Use Questionnaire (AUDIT-C) 1. How often do you have a drink containing alcohol?: Never 3. How often do you have six or more drinks on one occasion?: Never Total Score: 0 ANAT-7 AMB Questionnaire ANAT-7 Date ANAT - 7 assessed: 09/23/24 Feeling nervous, anxious, or on edge: 2 = More than half the days Not being able to stop or control worryin = Several days Worrying too much about different things: 1 = Several days Trouble relaxin = More than half the days Being so restless that it is hard to sit still: 1 = Several days Becoming easily annoyed or irritable: 1 = Several days Feeling afraid as if something awful might happen: 1 = Several days Total ANAT-7 score (0-4 normal; 5-9 mild; 10-14 moderate; 15-21 severe): 9 Source: Developed by Drs. Farshad Gimenez, Anna Marei Denis, Balwinder Coffey and colleagues, with an educational aliyah from [employer]. Review of Systems Const Denies poor appetite and Denies weakness Eyes Denies no additional complaints ENT Reports Normal hearing present, Denies dizziness, Denies nasal congestion, Denies tinnitus and Denies sore throat Card Denies chest pain, Denies syncope, Denies rapid heart rate and Denies dyspnea Resp Denies cough and Denies dyspnea GI Denies change in stool character, Reports constipation, Denies diarrhea, Denies nausea and Denies vomiting Denies dysuria and Denies urinary frequency Neuro Reports Normal hearing present, Denies confusion, Denies dizziness, Denies syncope and Denies weakness Psych Denies confusion Physical exam (Primary Care) Vital Signs: Last Vital Signs Pulse 81 09/23/24 09:05 BP 128/72 09/23/24 09:05 Pulse Ox 95 09/23/24 09:05 Oxygen Delivery Method Room Air 09/23/24 09:05 BMI result Body Mass Index 32.7 Tobacco/Smoking Status: Tobacco use Status Tobacco use date assessed 09/23/24 09/23/24 09:06 Patient Tobacco Use Status Never used Tobacco 09/23/24 09:06 Tobacco use type Cigarette 09/23/24 09:06 e-Cigarette/Vaping Use Never Used 09/23/24 09:06 PHQ-9: PHQ-9 Score PHQ-9: Total score 16 09/23/24 09:19 Depression Screening Interpretation: Positive Thrive Assessment: Date of Thrive Assessment Date Thrive assessed 09/23/24 09/23/24 09:06 Currently or been in a relationship where the following occur: Controlled Emotionally Const General: No confusion Orientation/consciousness: No confusion HENMT Head: Yes normocephalic Ears: external ears normal and TM's normal bilaterally Face and sinus: Yes normal facial exam Mouth: moist mucous membranes Throat: Yes tonsils normal Eyes Conjunctivae: conjunctivae normal Pupils: Equal, round and reactive pupils present and Pupil accommodation reflex normal Direct Ophthalmoscopy: normal light reflex Neck Neck: No lymphadenopathy Thyroid: Thyroid normal Chest Chest palpation & inspection: normal inspection of the chest Resp Effort & Inspection: normal respiratory effort and no audible wheezes Auscultation: clear to auscultation bilaterally, no crackles, no wheezes and lung sounds not diminished Cardio Rate: regular rate Rhythm: regular rhythm Peripheral pulses: radial pulses present and dorsalis pedis present GI Other: guaiac negative , prostate N, pedal pulse and pin prick negative. L hip pain on palpation lateral area Palpation (GI): no masses Auscultation: normal bowel sounds and normoactive bowel sounds Rectal Exam - Male: Yes deferred Abdomen image: 2 1. Right inguinal bulge Other: Right inguinal bulge noted Skin General skin exam: no rashes or lesions noted Rashes: no rashes Neuro General: No confusion Cranial nerves: Yes Equal, round and reactive pupils present and Yes Normal hearing present Cognition (Neuro): normal cognition Gait exam (Neuro): Normal gait present Motor exam (neuro): 5/5 motor strength present throughout Deep tendon reflexes (DTR's): Right brachioradialis reflex intensity grade: 2+, Left brachioradialis reflex intensity grade: 2+, Right patellar reflex intensity grade: 2+ and Left patellar reflex intensity grade: 2+ Extrem General: No edema Results AMB Hemoglobin A1c 2 AMB Hemoglobin A1c 6.5 % Last Edit by Rosaline Guthrie CMA on 09/23/24 09 :22 Coding Level of Care Code Est Pt Prev Care 40-64y(53742) Diagnoses Annual physical exam Z00.00 Type 2 diabetes mellitus with hyperglycemia E11.65 Hypertension I10 GERD (gastroesophageal reflux disease) K21.9 Obesity (BMI 30-39.9) E66.9 Generalized anxiety disorder F41.1 Hypercholesterolemia E78.00 Fatty liver K76.0 Trochanteric bursitis of left hip M70.62 Right inguinal hernia K40.90 Additional Codes PHQ-9 - 06643 - PHQ-9 Billing: Yes ([id number]) Assessment & Plan Assessment & Plan (1) Annual physical exam: Code(s): Z00.00 - Encounter for general adult medical examination without abnormal findings Category: Medical Plan: Patient is advised to eat healthy, keep well hydrated, keep active and have adequate sleep. (2) Type 2 diabetes mellitus with hyperglycemia: Comment: dr. Green Code(s): E11.65 - Type 2 diabetes mellitus with hyperglycemia Category: Medical Plan: Decrease the amount of carbohydrate intake, pasta, bread, rice and potatoes are all sugar and that is aside from all the sweet stuff, remember that fruits are good but they are Sweet also. Hemoglobin A1c goal of less than 6.5. Patient is diet controlled (3) Hypertension: Comment: getting hypotension - stop BP med 09/2023 Code(s): I10 - Essential (primary) hypertension Category: Medical Plan: Continue with blood pressure medication. Decrease salt intake and exercise continuing to monitor as the blood pressure has been getting hypotensive also. (4) GERD (gastroesophageal reflux disease): Code(s): K21.9 - Gastro-esophageal reflux disease without esophagitis Category: Medical Plan: Avoid the foods that causes that usually spicy foods, tomato products, juices, coffee, soda and foods that your sensitive to. After eating do not lie down, allow 3-4 hours before in lie down. And keep the head of bed above 30 degrees to avoid the acid from going up. (5) Obesity (BMI 30-39.9): Code(s): E66.9 - Obesity, unspecified Category: Medical Plan: Diet and exercise (6) Generalized anxiety disorder: Comment: Psychiatrist Dr. Presley in [address] Q month- 2 months therapist seen Q O week Code(s): F41.1 - Generalized anxiety disorder Category: Medical Plan: Continue with counseling and therapy (7) Hypercholesterolemia: Code(s): E78.00 - Pure hypercholesterolemia, unspecified Category: Medical Plan: Avoid fried foods, chicken skin, eggs, butter margarine, pastries and meat. Be it pork or beef they have a lot of cholesterol LDL goal of less than 100 and triglyceride of less than 150. On simvastatin 10 mg at bedtime. (8) Fatty liver: Code(s): K76.0 - Fatty (change of) liver, not elsewhere classified Category: Medical (9) Trochanteric bursitis of left hip: Code(s): M70.62 - Trochanteric bursitis, left hip Category: Medical (10) Right inguinal hernia: Code(s): K40.90 - Unilateral inguinal hernia, without obstruction or gangrene, not specified as recurrent Category: Medical Plan 1. 5%: - Reinforce adherence to asthma control regimen, confirm proper use of inhalers. - Obtain x-ray of the left hip to evaluate current pain and assess for potential bursitis. - Schedule follow-up blood work, including liver function tests and ferritin levels. - Discuss potential orthopedic consult if hip pain persists or worsens. - Encourage recommitment to regular exercise and weight loss strategies. - Maintain current prescription regimen for anxiety and sleep disorders. During the consultation, I addressed the patient's chronic conditions, specifically communicating the significance of managing type 2 diabetes and hypercholesterolemia. We reviewed the recent increase in hemoglobin A1c to 6.5 and discussed strategies to lower this below the target. Hypercholesterolemia management is ongoing with simvastatin and dietary adjustments. The patient understands the necessity of adhering to the asthma medication regimen to avoid exacerbations. Plans were made to investigate left hip pain through imaging, with a follow-up mention that could lead to an orthopedic referral if necessary. I reinforced the importance of weight management and exercise, particularly due to knee osteoarthritis, and provided anticipatory guidance on avoiding potential seasonal viral infections. A planned follow-up in three months with necessary lab work was established. - Continue taking prescribed medications, including simvastatin and asthma inhalers, as directed. - Monitor blood glucose regularly and adhere to dietary recommendations to achieve a hemoglobin A1c below 6.5%. - Follow through with regular exercise such as biking and aim for gradual weight reduction. - Schedule an x-ray for left hip within the coming weeks. - Complete blood work three months from now as planned. - Report any significant worsening of hip or knee pain. - Avoid alcohol consumption and limit coffee to two cups per day. - Seek medical attention if any unusual or severe symptoms arise. Orders: Orders 2 Complete Blood Count Auto Diff 3 Months E11.65 - Type 2 diabetes mellitus with hyperglycemia Lipid Panel 3 Months E11.65 - Type 2 diabetes mellitus with hyperglycemia, E78.00 - Pure hypercholesterolemia, unspecified Hemoglobin A1c 3 Months E11.65 - Type 2 diabetes mellitus with hyperglycemia Microalbumin, Random (w Creat) 3 Months E11.65 - Type 2 diabetes mellitus with hyperglycemia Creatinine Urine 3 Months E11.65 - Type 2 diabetes mellitus with hyperglycemia AMB Hemoglobin A1c Today Z13.9 - Encounter for screening, unspecified Comprehensive Met. Panel 3 Months E11.65 - Type 2 diabetes mellitus with hyperglycemia Free T4 (Free Thyroxine) 3 Months E11.65 - Type 2 diabetes mellitus with hyperglycemia Ferritin 3 Months E11.65 - Type 2 diabetes mellitus with hyperglycemia Thyroid Stimulating Hormone 3 Months E11.65 - Type 2 diabetes mellitus with hyperglycemia Vitamin B12 and Folate 3 Months E11.65 - Type 2 diabetes mellitus with hyperglycemia Prostate Specific Antigen Scr 3 Months E11.65 - Type 2 diabetes mellitus with hyperglycemia XR hip LT min 2V Today M70.62 - Trochanteric bursitis, left hip Medications: Refilled 2 fluticasone propionate 50 mcg/actuation 2 sprays intranasal DAILY 48 mL 7RF Z51.6 - Encounter for desensitization to allergens simvastatin 10 mg PO BEDTIME 90 days 90 tabs 2RF E78.00 - Pure hypercholesterolemia, unspecified
--- OUTSIDE RECORDS SUMMARY | 2024-09-23 09:47 | XMS_ITS | Patient Health Record ---
Author Organization [facility] Address [address] [place] [address] Care Team Providers Care [employer] Name Role Phone Allyn Fitzgerald MD Primary Care Provider Farshad Phoenix [phone] ALLERGIES Allergen (clinical drug ingredient) Drug/Non Drug Allergy documented on EMR Reaction Allergy Type Onset Date Status Penicillin Unknown Drug Allergy Active REASON FOR REFERRAL No Information MEDICATIONS Medication SIG (Take, Route, Frequency, Duration) Notes Start Date End Date Status ProAir HFA 108 (90 Base) MCG/ACT Inhalation for 17 Active Simvastatin 10 MG Oral for 90 Active Meloxicam 15 MG Oral for 30 Ac tive Cetirizine HCl 10 MG Oral for 30 Active Ascorbic Acid 500 MG Oral for 30 Active QUEtiapine Fumarate 100 MG Oral for 90 Active Mirtazapine 15 MG Oral for 90 Active IMMUNIZATIONS Vaccine Route Administration Date Status Comme nts Influenza Unknown 04/13/2021 Administered SOCIAL HISTORY Tobacco Use: Social History Observation Description Date Details (start date - stop date) Never Smoker NA - NA Sex Assigned At : Social History Observation Description Sex Assigned At Unknown Tobacco Use/Smoking Question Answer Notes Patient is a nonsmoker Alcohol Screen Question Answer Notes Did you have a drink contain ing alcohol in the past year? Yes How often did you have a dri nk containing alcohol in the past year? Never (0 point) How many drinks did you have on a typical day when you were drinking in the past year? 1 or 2 drinks (0 point) How often did you have 6 or more drinks on one occasion in the past year? Never (0 point) Points 0 Interpretation Negative PROBLEMS Problem Type ICD Code Onset Dates Problem Status W/U Status Risk SNOMED Code Notes Problem Elevated liver function tests (R79.89) Active confirmed 769180549 Problem Encounter for screening for malignant neoplasm of colon (Z12.11) Active confirmed 430744297 Problem Fatty liver (K76.0) Active confirmed 679590292 Problem Diverticulosis of colon (K57.30) Active confirmed Diverticulosi s of colon (102745872) PLAN OF TREATMENT Pending Test Test Name Order Date LIVER PROFILE 11/01/2021 HEPATITIS A,B,C PROFILE 11/01/2021 [id number] (A1A) 11/01/2021 US ABD 11/01/2021 FLUOR. ANTINUCLEAR AB SCREEN (MEGAN) 10/12 Mitochondrial Antibody 11/01/2021 Smooth Muscle Antibody 11/01/2021 Pathology 12/02/2021 Future Test Test Name Order Date COLONOSCOPY 11/01/2021 Insurance Providers Payer Name Payer Address Payer Phone Subscriber Number Group Number Insured Name Patient Relationship to Insured Coverage Start Date Coverage End Date [facility] [address] [address] [place], [place] [id number] RAS SALVADOR Self - patient is the insured MEDICAL (GENERAL) HISTORY Medical History History ICD Code Asthma Kidney stones Denies [place],DM,CVA,,renal disease Seasonal allergies Negative colonoscopy in his 30's Arthritis Elevated iron--seeing Dr. Young Told of fatty liver Anxiety/Depression Surgical History Surgery Date(Month/Year) Nose Tonsillectomy Ear tubes
== END 2024-09-23 09:45 | disposition home or self-care (01) ==
PROVIDERS: PCP Internal Medicine; Visit Provider Internal Medicine
DX: Z00.00 Encounter for general adult medical examination without abnormal findings (principal); E11.65 Type 2 diabetes mellitus with hyperglycemia; E66.9 Obesity, unspecified; Z68.32 Body mass index [BMI] 32.0-32.9, adult; I10 Essential (primary) hypertension; K21.9 Gastro-esophageal reflux disease without esophagitis; F41.1 Generalized anxiety disorder; E78.00 Pure hypercholesterolemia, unspecified; K76.0 Fatty (change of) liver, not elsewhere classified; M70.62 Trochanteric bursitis, left hip; K40.90 Unilateral inguinal hernia, without obstruction or gangrene, not specified as recurrent

== ENCOUNTER → 2024-09-23 08:57 | Outpatient (BNVA) | payer OTHER, SELFPAY | PROVIDERS: PCP Internal Medicine; Visit Provider Internal Medicine | DX: Z00.00 Encounter for general adult medical examination without abnormal findings (principal); E11.65 Type 2 diabetes mellitus with hyperglycemia; K21.9 Gastro-esophageal reflux disease without esophagitis; I10 Essential (primary) hypertension; E66.9 Obesity, unspecified; F41.1 Generalized anxiety disorder; E78.00 Pure hypercholesterolemia, unspecified; K76.0 Fatty (change of) liver, not elsewhere classified; K40.90 Unilateral inguinal hernia, without obstruction or gangrene, not specified as recurrent; M70.62 Trochanteric bursitis, left hip | CPT/HCPCS: 83036; 96127; 99396 ==

== ENCOUNTER 2024-11-20 10:01 | Outpatient (REF) | payer OTHER, SELFPAY ==
--- NOTE | ~2024-11-20 | XR_ITS ---
EXAMINATION: XR HIP, LEFT CLINICAL INFORMATION: M70.62 - Trochanteric bursitis, left hip COMPARISON: None available. TECHNIQUE: Two views of the left hip. FINDINGS: No fracture, dislocation, or suspicious bone lesion. Normal bone mineralization. Normal alignment. Mild osteoarthrosis of the left hip. No abnormality of the greater trochanter. Soft tissues appear normal. XR/XR hip LT min 2V IMPRESSION: 1. No acute bony abnormalities. 2. Mild osteoarthrosis of left hip joint. Electronically signed by: Giovani Mosley MD 11/20/2024 11:10 AM EDT
[2024-11-20 10:24] LABS: MANUAL DIFF FLAG NO
[2024-11-20 11:13] LABS: Basophils Absolute Auto 0.1 X10*3/uL (0.0-0.2); Basophils Percent Auto 0.8 % (0-2); Eosinophils Absolute Auto 0.4 X10*3/uL (0.0-0.4); Eosinophils Percent Auto 5.1 % (0-4); Hematocrit 42.1 % (42.0-52.0); Hemoglobin 13.8 g/dl (14.0-18.0); Imm Gran Abs Auto 0.03 X10*3/uL (0.00-0.03); Imm Gran Pct Auto 0.4 % (0.0-0.4); Lymphocytes Absolute Auto 2.6 X10*3/uL (1.2-4.9); Lymphocytes Percent Auto 37.1 % (20-40); Mean Corpuscular HGB Conc 32.8 g/dl (31.0-36.0); Mean Corpuscular Hemoglobin 28.9 pg (27.0-33.0); Mean Corpuscular Volume 88.3 fL (80.0-98.0); Mean Platelet Volume 11.2 fL (9.4-12.4); Monocytes Absolute Auto 0.7 X10*3/uL (0.1-1.2); Monocytes Percent Auto 9.9 % (2-11); Neutrophils Absolute Auto 3.3 x10*3/uL (2.0-8.3); Neutrophils Percent Auto 46.7 % (45-73); Platelet Count 249 X10*3/uL (160-400); Red Blood Count 4.77 X10*6/uL (4.60-5.80); Red Cell Distribution Width 13.5 % (11.0-16.0); White Blood Count 7.1 X10*3/uL (4.8-10.8)
[2024-11-20 11:21] LABS: Estimated Average Glucose 137 mg/dL; Hemoglobin A1C 173.4899 umol/L; Hemoglobin A1c % 6.4 % (<6.0); Total Hemoglobin (HGBA1C) 3740.5322 umol/L
--- OUTSIDE RECORDS SUMMARY | 2024-11-20 11:38 | XMS_ITS | Patient Health Record ---
Author Organization [facility] Address [address] [place] [address] Care Team Providers Care Technical Product Manager Name Role Phone Allyn Fitzgerald MD Primary Care Provider Farshad Phoenix [phone] Allergies Allergen (clinical drug ingredient) Drug/Non Drug Allergy documented on EMR Reaction Allergy Type Onset Date Status Penicillin Unknown Drug Allergy Active Reason For Referral No Information Medications Medication SIG (Take, Route, Frequency, Duration) Notes [...] Mirtazapine 15 MG Oral for 90 Active Immunizations Vaccine Route Administration Date Status Comme nts Influenza Unknown 04/13/2021 Administered Social History Tobacco Use: Social History Observation Description Date Details (start date - stop date) Never Smoker NA - NA Tobacco Use/Smoking Question Answer Notes Patient is [...] Never (0 point) Points 0 Interpretation Negative Section Notes: Nonsmoker; some beers on e weekend Problems Problem Type SNOMED Code ICD Code Onset Dates Problem Status W/U Status Risk Notes Problem 835620670 Encounter for screening for malignant neoplasm of colon (Z12.11) Active confirmed Problem 757941225 Elevated liver function tests (R79.89) Active confirmed Problem 566007603 Fatty liver (K76.0) Active confirmed Problem Diverticulosis of colon (572956287) Diverticulosis of colon (K57.30) Active confirmed Plan Of Treatment Pending Test Test Name Order Date LIVER PROFILE 11/01/2021 HEPATITIS A,B,C PROFILE 11/01/2021 [id number] (A1A) 11/01/2021 US ABD 11/01/2021 FLUOR. ANTINUCLEAR AB SCREEN (MEGAN) 10/12 Mitochondrial Antibody 11/01/2021 Smooth Muscle Antibody 11/01/2021 Pathology 12/02/2021 Future Test Test Name Order Date COLONOSCOPY 11/01/2021 Insurance Providers Payer Name Payer Address Payer Phone Subscriber Number Group Number Insured Name Patient Relationship to Insured Coverage Start Date Coverage End Date [facility] [address] [address] [place], [place] [id number] RAS SALVADOR Self - patient is the insured Medical (General) History Medical History History ICD Code Asthma Kidney stones Denies [place],DM,CVA,,renal disease Seasonal allergies Negative colonoscopy in his 30's Arthritis Elevated iron--seeing Dr. Young Told of fatty liver Anxiety/Depression Surgical History Surgery Date(Month/Year) Nose Tonsillectomy Ear tubes
[2024-11-20 11:56] LABS: Alanine Aminotransferase 53 U/L (0-40); Albumin Level 4.7 g/dL (3.5-5.0); Alkaline Phosphatase 61 U/L (39-117); Anion Gap 13 (12-20); Aspartate Amino Transferase 34 U/L (5-37); Bilirubin Total 0.5 mg/dL (0.0-1.0); Blood Urea Nitrogen 11 mg/dL (9-16); Calcium 9.8 mg/dL (8.4-10.2); Carbon Dioxide 27 mmol/L (22-29); Chloride 104 mmol/L (96-108); Cholesterol 165 mg/dL (<200); Estimated Glomerular Filt Rate > 60; Glucose Random 115 mg/dL (60-115); HDL Cholesterol 46 mg/dL (>40); LDL Cholesterol Calculated 85 mg/dL (<100); Potassium 4.3 mmol/L (3.3-5.1); Sodium 140 mmol/L (135-145); Total Protein 7.6 g/dL (6.5-8.0); Triglycerides 170 mg/dL (<150)
[2024-11-20 12:14] LABS: Creatinine Urine 23.78 mg/dL; Microalbumin Urine < 5.0 mg/L
[2024-11-20 12:19] LABS: Ferritin 333 ng/mL (20-250); Free T4 (Free Thyroxine) 1.06 ng/dL (0.71-1.85); Thyroid Stimulating Hormone 0.98 uIU/mL (0.32-4.0)
[2024-11-20 12:32] LABS: Folate 12.6 ng/mL (> or = 4.0); Prostate Specific Antigen Scr 0.52 ng/mL (<0.05-4.0); Vitamin B12 421 pg/mL (200-900)
== END 2024-11-20 10:02 | disposition home or self-care (01) ==
LOC: HO.XRAY 10:01
PROVIDERS: PCP Internal Medicine; Visit Provider Internal Medicine
DX: E11.65 Type 2 diabetes mellitus with hyperglycemia (principal); E78.00 Pure hypercholesterolemia, unspecified; M70.62 Trochanteric bursitis, left hip
CPT/HCPCS: 36415; 73502; 80053; 80061; 82043; 82570; 82607; 82728; 82746; 83036; 84153; 84439; 84443; 85025

== ENCOUNTER → 2024-11-20 10:26 | Outpatient (BNV) | payer OTHER, SELFPAY | PROVIDERS: PCP Internal Medicine; Visit Provider Radiology Diagnostic Radiology | DX: M70.62 Trochanteric bursitis, left hip (principal) | CPT/HCPCS: 73502 ==

== ENCOUNTER 2024-12-24 09:52 | Outpatient (AMB) | payer OTHER, SELFPAY ==
[2024-12-24 09:56] VITALS: BP 118/68; PULSE 78; O2SAT 96; BMI 30.7
--- NOTE | 2024-12-24 09:56 | A.OFFPC_ITS ---
Vital Signs 12/24/24 09:56 Height 5 ft 2 in Weight 168 lb BMI 30.7 BP 118/68 Blood Pressure Location Lt brachial Position Sitting Pulse 78 Pulse Source Pulse Oximeter Pulse Oximetry (%) 96 Oxygen Delivery Method Room Air Intake Visit Reasons: DM Allergies Penicillins [PENICILLINS] Allergy (Intermediate, Verified 12/24/24 09:57) STOMACH UPSET fentanyl Adverse Reaction (Severe, Verified 12/24/24 09:57) Difficulty Breathing Tobacco use date assessed: 09/23/24 Dental Screening Dental Screen Date: 09/23/24 [facility] Medical History (Updated 12/24/24 @ 10:12 by Allyn Fitzgerald MD) Anemia Arthritis COVID-19 vaccine series completed Elevated ferritin level Colon cancer screening Numbness of left hand Radicular pain in left arm Desensitization to allergy shot Attention deficit disorder History of renal calculi Impaired fasting glucose Vitamin B12 deficiency Vitamin D deficiency Overweight (BMI 25.0-29.9) Fatty liver Asthma Chronic back pain Hypercholesterolemia Surgical History Status post right knee surgery H/O colonoscopy History of nasal surgery History of ear surgery Family History Father Bone cancer Brain cancer Mother CVD (cardiovascular disease) Stroke Maternal Uncle Heart disease Paternal Uncle Bone cancer Lung cancer Sister Lung cancer Bipolar 1 disorder Other Prostate cancer Social History (Updated 09/23/24 @ 09:25 by Allyn Fitzgerald MD) Household Members: Significant Other Housing: Apartment Are you a primary special needs caregiver to a significant other at home: No Do you presently have visiting nurse or other home services: No Alcohol intake: current Alcohol intake frequency: a few times a month Comment: once a week 2-3 beers, stopped 2024 Patient Tobacco Use Status: Never used Tobacco Tobacco use type: Cigarette e-Cigarette/Vaping Use: Never Used Second Hand Smoke Exposure: No service: No Current occupational status: disabled Current occupation: Right hand dominate Current occupational exposures/hazards: No Cognitive needs: No Hearing needs: No Vision needs: Yes Questionnaire PHQ-9 Over the last 2 weeks, how often have you been bothered by any of the following problems? 1. Little interest or pleasure in doing things: not at all 2. Feeling down, depressed, or hopeless: several days Source: Developed by Drs. Farshad Gimenez, Anna Marie Denis, Balwinder Coffey and colleagues, with an educational aliyah from [employer]. Thrive Questionnaire Date Thrive assessed: 09/21/24 I am a: Patient What is your living situation today?: I choose not to answer this question Within the past 12 months, did the food you bought not last and you didn't have the money to get more?: I choose not to answer this question Within the past 12 months, did you worry whether your food would run out before you got money to buy more?: Never true Do you have trouble paying for medicines?: No Do you have trouble getting transportation to medical appointments?: No Do you have trouble paying your heating and electricity bill?: Yes Do you have trouble taking care of your child, family member or friend?: No Do you have trouble with day-to-day activities such as bathing, preparing meals, shopping, managing finances, etc.?: No Are you currently unemployed and looking for a job?: I choose not to answer this question Are you interested in more education?: I choose not to answer this question Please select the resources that you would like help with: None Currently or been in a relationship where the following occur: Controlled Emotionally THRIVE Score: 2 ANAT-7 AMB Questionnaire ANAT-7 Date ANAT - 7 assessed: 09/23/24 Source: Developed by Drs. Farshad Gimenez, Balwinder uPrcell and colleagues, with an educational aliyah from [employer]. Physical exam (Primary Care) Vital Signs: Last Vital Signs Pulse 78 12/24/24 09:56 BP 118/68 12/24/24 09:56 Pulse Ox 96 12/24/24 09:56 Oxygen Delivery Method Room Air 12/24/24 09:56 BMI result Body Mass Index 30.7 Tobacco/Smoking Status: Tobacco use Status Tobacco use date assessed 09/23/24 12/24/24 09:59 Patient Tobacco Use Status Never used Tobacco 12/24/24 09:59 Tobacco use type Cigarette 12/24/24 09:59 e-Cigarette/Vaping Use Never Used 12/24/24 09:59 Thrive Assessment: Date of Thrive Assessment Date Thrive assessed 09/21/24 12/24/24 09:59 Currently or been in a relationship where the following occur: Controlled Emotionally Const General: alert; No acute distress Eyes Conjunctivae: conjunctivae normal Resp Auscultation: clear to auscultation bilaterally Cardio Rate: regular rate Rhythm: regular rhythm GI Inspection: Yes normal to inspection Extrem General: Yes normal to inspection and No edema Coding Level of Care Code Est Pt Level 4 (58876) Complex EM visit Add On G2211 Diagnoses Type 2 diabetes mellitus with hyperglycemia E11.65 Hypertension I10 GERD (gastroesophageal reflux disease) K21.9 Hypercholesterolemia E78.00 Fatty liver K76.0 Generalized anxiety disorder F41.1 Anemia D64.9 Assessment & Plan Assessment & Plan (1) Type 2 diabetes mellitus with hyperglycemia: Comment: dr. Green Code(s): E11.65 - Type 2 diabetes mellitus with hyperglycemia Category: Medical Plan: Decrease the amount of carbohydrate intake, pasta, bread, rice and potatoes are all sugar and that is aside from all the sweet stuff, remember that fruits are good but they are Sweet also. Hemoglobin A1c goal of less than 6.5. Patient noted to have lost weight and diet controlled (2) Hypertension: Comment: getting hypotension - stop BP med 09/2023 Code(s): I10 - Essential (primary) hypertension Category: Medical Plan: Continue with blood pressure medication. Decrease salt intake and exercise patient is not on any medication and continuing to monitor (3) GERD (gastroesophageal reflux disease): Code(s): K21.9 - Gastro-esophageal reflux disease without esophagitis Category: Medical Plan: Avoid the foods that causes that usually spicy foods, tomato products, juices, coffee, soda and foods that your sensitive to. After eating do not lie down, allow 3-4 hours before in lie down. And keep the head of bed above 30 degrees to avoid the acid from going up. (4) Hypercholesterolemia: Code(s): E78.00 - Pure hypercholesterolemia, unspecified Category: Medical Plan: Avoid fried foods, chicken skin, eggs, butter margarine, pastries and meat. Be it pork or beef they have a lot of cholesterol LDL goal of less than 100 and triglyceride of less than 150 (5) Fatty liver: Code(s): K76.0 - Fatty (change of) liver, not elsewhere classified Category: Medical Plan: Low-fat diet (6) Generalized anxiety disorder: Comment: Psychiatrist Dr. Presley in [address] Q month- 2 months therapist seen Q O week Code(s): F41.1 - Generalized anxiety disorder Category: Medical Plan: Continue with counseling and therapy (7) Anemia: Code(s): D64.9 - Anemia, unspecified Category: Medical Plan: Will continue to monitor. Plan History of Present Illness The patient is a 54-year-old male presenting with notable but controlled chronic health conditions such as essential hypertension, type 2 diabetes mellitus, and obesity, accompanied by a recent 11-pound unintended weight loss. Previous diagnostics indicated satisfactory control of his diabetes with an A1c of 6.4% as of November 2024. He has actively engaged in dietary modifications, resulting in improved weight management and metabolic control. The patient's asthma is managed with inhalers, and recent colonic examination records are up to date from two years prior. He reports adhering to routine ophthalmologic examinations that noted issues such as borderline tortuosity and cataracts in his right eye. He experiences mild osteoarthritic symptoms in his left hip, treating with gabapentin and an occasional Tylenol for pain relief, emphasizing controlled consumption due to pre-existing elevated liver enzymes and fatty liver disease documented by past imaging. Efforts to manage hypercholesterolemia involve a strategic dietary plan aimed at reducing LDL and triglyceride levels; however, recent triglyceride levels were marginally high at 170 mg/dL despite an LDL of 85 mg/dL. Screening labs from November also revealed a mild anemia thought to be constant over time, paired with elevated liver enzymes, requiring watchful monitoring. Health Maintenance - Discussed diabetes management with A1c monitoring; current goal <6.5% - Eye examination in December 05 indicating borderline tortuosity and cataracts; continued regular follow-ups advised - Colonoscopy last performed in November 2021 - Vaccinations up to date: shingles, tetanus, and pneumonia - Lipid management with dietary modifications for LDL goal <100 mg/dL and triglycerides <150 mg/dL - Hepatic function monitoring due to elevated liver enzymes and fatty liver Social History - Dietary changes implemented, including reduced rice and fast food intake - Former alcohol consumption cessation noted since August - Adherence to asthma control using inhaler and Zyrtec for allergies - Regular use of gabapentin and Tylenol for osteoarthritic hip pain Review of Systems - Respiratory: Reports morning wheezing; improved with inhaler use - Gastrointestinal: Denies current GERD symptoms - Musculoskeletal: Reports left hip pain managed with medication - Neurological: Denies other neurological complaints - Allergies: Reports current symptoms; managed with daily use of Zyrtec - Ophthalmic: Reports cataract in right eye, borderline artery tortuosity Physical Exam Results - Lab: A1c of 6.4% (November 2024), hemoglobin 13.8 g/dL and elevated liver enzymes (November 20), LDL 85 mg/dL, triglycerides 170 mg/dL - Imaging: Mild osteoarthritis of left hip noted on X-ray - Eye Exam: Cataracts in right eye, borderline tortuosity (December 05) - Ultrasound: Hepatic steatosis documented in 2021 Plan The patient continues with close management of diabetes, hyperlipidemia, and liver function with agreed-on A1c, LDL, and triglyceride targets. Medication reg imen remains unchanged, with existing therapies for asthma and mild hip osteoarthritis under regular review. Anticipated follow-up with the [facility] and planning for continued review of right eye complications and encouragement of lifestyle modifications has been reinforced. I will coordinate the evaluation of anemia, apply necessary dietary monitoring for lipid control, and monitor hepatic function. Patient was informed and verbally consented to the use of an ambient scribe for clinic note documentation during this visit. Discussion Notes I discussed with the patient the successful management of diabetes with an A1c of 6.4% and encouraged ongoing adherence to dietary and lifestyle modifications to manage lipid levels and hepatic steatosis. The patient's existing asthma and arthritis medication were evaluated, with further discussions on the efficacy of gabapentin and inhaler use to alleviate symptoms. We explored the importance of liver function monitoring due to current elevated enzyme levels and potential Tylenol impacts, emphasizing controlled use. The need for routine ophthalmology follow-ups and the current status of vaccinations was highlighted. Recommendations included maintaining an active dialogue on anemia management and potential contributions from diet and lifestyle. Follow-ups are planned, with the next assessment including further blood work to be conducted in appr oximately three months. Patient Instructions - Continue with dietary changes, avoiding greasy and fast foods - Use inhaler and Zyrtec as needed for asthma and allergies - Monitor and manage with gabapentin and conservative use of Tylenol for hip pain - Follow-up with [facility] and planning as scheduled for eye check - Schedule the next blood test in three months - Maintain regular activity level and sleep habits - Inform of any worsening symptoms or concerns immediately Orders: Orders Vitamin B12 and Folate 3 Months D64.9 - Anemia, unspecified Hemoglobin A1c 3 Months D64.9 - Anemia, unspecified Complete Blood Count Auto Diff 3 Months D64.9 - Anemia, unspecified Ferritin 3 Months D64.9 - Anemia, unspecified Reticulocyte Count 3 Months D64.9 - Anemia, unspecified Lipid Panel 3 Months D64.9 - Anemia, unspecified, E78.00 - Pure hypercholesterolemia, unspecified
--- OUTSIDE RECORDS SUMMARY | 2024-12-24 10:40 | XMS_ITS | Patient Health Record ---
Author Organization [facility] Address [address] [place] [address] Care Team Providers Care Director Global Development Name Role Phone Allyn Fitzgerald MD Primary Care Provider Farshad Phoenix [phone] Allergies Allergen (clinical drug ingredient) Drug/Non Drug [...] Problem Status W/U Status Risk Notes Problem [id number] Encounter for screening for malignant neoplasm of colon (Z12.11) Active confirmed Problem 943929854 Elevated liver function tests (R79.89) Active confirmed Problem 219752190 Fatty liver (K76.0) Active confirmed Problem Diverticulosis of colon (334238055) Diverticulosis of colon (K57.30) Active confirmed Plan Of Treatment Pending Test Test Name Order Date LIVER PROFILE 11/01/2021 HEPATITIS A,B,C PROFILE 11/01/2021 [id number] (A1A) 11/01/2021 US ABD 11/01/2021 FLUOR. ANTINUCLEAR AB SCREEN (MEGAN) 10/12 Mitochondrial Antibody 11/01/2021 Smooth Muscle Antibody 11/01/2021 Pathology 12/02/2021 Future Test Test Name Order Date COLONOSCOPY 11/01/2021 Insurance Providers Payer Name Payer Address Payer Phone Subscriber Number Group Number Insured Name Patient Relationship to Insured Coverage Start Date Coverage End Date [facility] [address] [address] [place], [place] [id number] RAS SALVADOR Self - patient is the insured Medical (General) History Medical History History ICD Code Asthma Kidney stones Denies [place],DM,CVA,,renal disease Seasonal allergies Negative colonoscopy in his 30's Arthritis Elevated iron--seeing Dr. Young Told of fatty liver Anxiety/Depression Surgical History Surgery Date(Month/Year) Nose Tonsillectomy Ear tubes
== END 2024-12-24 10:24 | disposition home or self-care (01) ==
LOC: HO.HMCH 09:53
PROVIDERS: PCP Internal Medicine; Visit Provider Internal Medicine
DX: E11.65 Type 2 diabetes mellitus with hyperglycemia (principal); I10 Essential (primary) hypertension; K21.9 Gastro-esophageal reflux disease without esophagitis; E78.00 Pure hypercholesterolemia, unspecified; K76.0 Fatty (change of) liver, not elsewhere classified; F41.1 Generalized anxiety disorder; D64.9 Anemia, unspecified

== ENCOUNTER → 2024-12-24 09:52 | Outpatient (BNVA) | payer OTHER, SELFPAY | PROVIDERS: PCP Internal Medicine; Visit Provider Internal Medicine | DX: E11.65 Type 2 diabetes mellitus with hyperglycemia (principal); I10 Essential (primary) hypertension; K21.9 Gastro-esophageal reflux disease without esophagitis; E78.00 Pure hypercholesterolemia, unspecified; K76.0 Fatty (change of) liver, not elsewhere classified; F41.1 Generalized anxiety disorder; D64.9 Anemia, unspecified | CPT/HCPCS: 99212 ==

== ENCOUNTER 2025-04-20 10:27 | Outpatient (REF) | payer OTHER, SELFPAY ==
[2025-04-20 10:41] LABS: MANUAL DIFF FLAG NO
[2025-04-20 11:10] LABS: Hematocrit 39.8 % (42.0-52.0); Hemoglobin 13.3 g/dl (14.0-18.0); Imm Gran Abs Auto 0.01 X10*3/uL (0.00-0.03); Imm Gran Pct Auto 0.1 % (0.0-0.4); Lymphocytes Absolute Auto 3.0 X10*3/uL (1.2-4.9); Mean Corpuscular HGB Conc 33.4 g/dl (31.0-36.0); Mean Corpuscular Hemoglobin 29.6 pg (27.0-33.0); Mean Corpuscular Volume 88.4 fL (80.0-98.0); NRBC Abs Auto 0.000 X10*3/uL (0.0-0.012); NRBC Pct Auto 0.0 /100WBC (0.0-0.2); Platelet Count 220 X10*3/uL (160-400); Red Blood Count 4.50 X10*6/uL (4.60-5.80); Reticulocytes Absolute 0.064 X10*6/uL (0.026-0.095); White Blood Count 7.6 X10*3/uL (4.8-10.8)
[2025-04-20 11:17] LABS: Hemoglobin A1C 148.3114 umol/L; Total Hemoglobin (HGBA1C) 3425.5927 umol/L
[2025-04-20 12:01] LABS: Cholesterol 165 mg/dL (<200); HDL Cholesterol 42 mg/dL (>40); Triglycerides 183 mg/dL (<150)
[2025-04-20 12:05] LABS: Ferritin 287 ng/mL (20-250)
[2025-04-20 12:13] LABS: Folate 9.0 ng/mL (> or = 4.0); Vitamin B12 465 pg/mL (200-900)
--- OUTSIDE RECORDS SUMMARY | 2025-04-20 12:31 | XMS_ITS | Patient Health Record ---
Author Organization [facility] Address [address] [place] [address] Care Team Providers Care Monument Setter Name Role Phone Allyn Fitzgerald MD Primary Care Provider Farshad Phoenix [phone] Allergies Allergen (clinical drug ingredient) Drug/Non Drug [...] Problem Status W/U Status Risk Notes Problem [id number] Encounter for screening for malignant neoplasm of colon (Z12.11) Active confirmed Problem 574135830 Elevated liver function tests (R79.89) Active confirmed Problem 646262992 Fatty liver (K76.0) Active confirmed Problem Diverticulosis of colon (824960210) Diverticulosis of colon (K57.30) Active confirmed Plan Of Treatment Pending Test Test Name Order Date LIVER PROFILE 11/01/2021 HEPATITIS A,B,C PROFILE 11/01/2021 [id number] (A1A) 11/01/2021 US ABD 11/01/2021 FLUOR. ANTINUCLEAR AB SCREEN (MEGAN) 10/12 Mitochondrial Antibody 11/01/2021 Smooth Muscle Antibody 11/01/2021 Pathology 12/02/2021 Future Test Test Name Order Date COLONOSCOPY 11/01/2021 Insurance Providers Payer Name Payer Address Payer Phone Subscriber Number Group Number Insured Name Patient Relationship to Insured Coverage Start Date Coverage End Date [facility] [address] [address] [place], [place] [id number] RAS SALVADOR Self - patient is the insured Medical (General) History Medical History History ICD Code Asthma Kidney stones Denies [place],DM,CVA,,renal disease Seasonal allergies Negative colonoscopy in his 30's Arthritis Elevated iron--seeing Dr. Young Told of fatty liver Anxiety/Depression Surgical History Surgery Date(Month/Year) Nose Tonsillectomy Ear tubes
== END 2025-04-20 10:28 | disposition home or self-care (01) ==
LOC: HO.LAB 10:27
PROVIDERS: PCP Internal Medicine; Visit Provider Internal Medicine
DX: E11.65 Type 2 diabetes mellitus with hyperglycemia (principal); E78.00 Pure hypercholesterolemia, unspecified; D64.9 Anemia, unspecified
CPT/HCPCS: 36415; 80061; 82570; 82607; 82728; 82746; 83036; 85025; 85045

== ENCOUNTER 2025-04-27 10:48 | Outpatient (AMB) | payer OTHER, SELFPAY ==
--- NOTE | 2025-04-27 11:11 | A.OFFPC_ITS ---
Vital Signs 04/27/25 11:12 Height 5 ft 2 in Weight 164 lb BMI 30.0 BP 118/70 Blood Pressure Location Lt brachial Position Sitting Pulse 74 Pulse Source Pulse Oximeter Pulse Oximetry (%) 97 Oxygen Delivery Method Room Air Intake Visit Reasons: DM Allergies Penicillins (PENICILLINS) Allergy (Intermediate, Verified 04/27/25 11:12) STOMACH UPSET fentanyl Adverse Reaction (Severe, Verified 04/27/25 11:12) Difficulty Breathing Tobacco use date assessed: 09/23/24 Dental Screening Dental Screen Date: 09/23/24 [facility] Medical History (Updated 12/24/24 @ 10:12 by Allyn Fitzgerald MD) Anemia Arthritis COVID-19 vaccine series completed Elevated ferritin level Colon cancer screening Numbness of left hand Radicular pain in left arm Desensitization to allergy shot Attention deficit disorder History of renal calculi Impaired fasting glucose Vitamin B12 deficiency Vitamin D deficiency Overweight (BMI 25.0-29.9) Fatty liver Asthma Chronic back pain Hypercholesterolemia Surgical History Status post right knee surgery H/O colonoscopy History of nasal surgery History of ear surgery Family History Father Bone cancer Brain cancer Mother CVD (cardiovascular disease) Stroke Maternal Uncle Heart disease Paternal Uncle Bone cancer Lung cancer Sister Lung cancer Bipolar 1 disorder Other Prostate cancer Social History (Updated 09/23/24 @ 09:25 by Allyn Fitzgerald MD) Household Members: Significant Other Housing: Apartment Are you a primary furnace caretaker to a significant other at home: No Do you presently have visiting nurse or other home services: No Alcohol intake: current Alcohol intake frequency: a few times a month Comment: once a week 2-3 beers, stopped 2024 Patient Tobacco Use Status: Never used Tobacco Tobacco use type: Cigarette e-Cigarette/Vaping Use: Never Used Second Hand Smoke Exposure: No service: No Current occupational status: disabled Current occupation: Right hand dominate Current occupational exposures/hazards: No Cognitive needs: No Hearing needs: No Vision needs: Yes Questionnaire Thrive Questionnaire Date Thrive assessed: 09/21/24 I am a: Patient What is your living situation today?: I choose not to answer this question Within the past 12 months, did the food you bought not last and you didn't have the money to get more?: I choose not to answer this question Within the past 12 months, did you worry whether your food would run out before you got money to buy more?: Never true Do you have trouble paying for medicines?: No Do you have trouble getting transportation to medical appointments?: No Do you have trouble paying your heating and electricity bill?: Yes Do you have trouble taking care of your child, family member or friend?: No Do you have trouble with day-to-day activities such as bathing, preparing meals, shopping, managing finances, etc.?: No Are you currently unemployed and looking for a job?: I choose not to answer this question Are you interested in more education?: I choose not to answer this question Please select the resources that you would like help with: None Currently or been in a relationship where the following occur: Controlled Emotionally THRIVE Score: 2 AUDIT C Alcohol Use Questionnaire (AUDIT-C) 1. How often do you have a drink containing alcohol?: Monthly or less 2. How many drinks containing alcohol do you have on a typical day when you are drinking?: 1 or 2 3. How often do you have six or more drinks on one occasion?: Never Total Score: 1 ANAT-7 AMB Questionnaire ANAT-7 Date ANAT - 7 assessed: 09/23/24 Source: Developed by Drs. Farshad Gimenez, Anna Marie Denis, Balwinder Coffey and colleagues, with an educational aliyah from [employer]. Physical exam (Primary Care) Vital Signs: Last Vital Signs Pulse 74 04/27/25 11:12 BP 118/70 04/27/25 11:12 Pulse Ox 97 04/27/25 11:12 Oxygen Delivery Method Room Air 04/27/25 11:12 BMI result Body Mass Index 30.0 Tobacco/Smoking Status: Tobacco use Status Tobacco use date assessed 09/23/24 04/27/25 11:16 Patient Tobacco Use Status Never used Tobacco 04/27/25 11:16 Tobacco use type Cigarette 04/27/25 11:16 e-Cigarette/Vaping Use Never Used 04/27/25 11:16 Thrive Assessment: Date of Thrive Assessment Date Thrive assessed 09/21/24 04/27/25 11:16 Currently or been in a relationship where the following occur: Controlled Emotionally Const General: alert; No acute distress Eyes Conjunctivae: conjunctivae normal Resp Auscultation: clear to auscultation bilaterally Cardio Rate: regular rate Rhythm: regular rhythm GI Inspection: Yes normal to inspection Extrem General: Yes normal to inspection and No edema Results AMB Hemoglobin A1c AMB Hemoglobin A1c Cancelled % Last Edit by Rosaline Guthrie CMA on 04/27 12:13 AMB Hemoglobin A1c previously reported as 7.1 Rosaline Guthrie 04/27/25 12:13 CANCELLED Entered in error. Results Reviewed Results Reviewed: Laboratory Last Values Hgb A1c (Clinic) Cancelled 04/27/25 11:53 Coding Level of Care Code Est Pt Level 4 (76100) Diagnoses Type 2 diabetes mellitus with hyperglycemia E11.65 Hypercholesterolemia E78.00 Generalized anxiety disorder F41.1 GERD (gastroesophageal reflux disease) K21.9 Assessment & Plan Assessment & Plan (1) Type 2 diabetes mellitus with hyperglycemia: Comment: dr. Green Code(s): E11.65 - Type 2 diabetes mellitus with hyperglycemia Category: Medical Plan: Decrease the amount of carbohydrate intake, pasta, bread, rice and potatoes are all sugar and that is aside from all the sweet stuff, remember that fruits are good but they are Sweet also. Hemoglobin A1c goal of less than 6.5. Patient is diet controlled (2) Hypercholesterolemia: Code(s): E78.00 - Pure hypercholesterolemia, unspecified Category: Medical Plan: Avoid fried foods, chicken skin, eggs, butter margarine, pastries and meat. Be it pork or beef they have a lot of cholesterol on simvastatin 10 mg at bedtime (3) Generalized anxiety disorder: Comment: Psychiatrist Dr. Presley in [address] Q month- 2 months therapist seen Q O week Code(s): F41.1 - Generalized anxiety disorder Category: Medical Plan: Continue with Seroquel mirtazapine (4) GERD (gastroesophageal reflux disease): Code(s): K21.9 - Gastro-esophageal reflux disease without esophagitis Category: Medical Plan: Avoid the foods that causes that usually spicy foods, tomato products, juices, coffee, soda and foods that your sensitive to. After eating do not lie down, allow 3-4 hours before in lie down. And keep the head of bed above 30 degrees to avoid the acid from going up. Plan History of Present Illness The patient is a 55-year-old male presenting for a follow-up visit. The patient has a history of obesity and is actively working on weight management through increased physical activity and dietary changes, such as reducing rice consumption. He has hypercholesterolemia, managed with simvastatin 10 mg daily, maintaining an LDL cholesterol level of 87 mg/dL, with a target of keeping it below 100 mg/dL. Asthma is part of his medical history, controlled with an inhaler as needed, with occasional wheezing noted during weather changes. The patient has hepatic steatosis, which is under observation. He is diagnosed with generalized anxiety disorder, managed with mirtazapine, and reports that his medication influences his appetite, leading to nighttime eating. Diabetes mellitus is diet-controlled, with an improved hemoglobin A1c from 6.4% to 6.1%, aiming to stay below 6.5%. Mild anemia was noted with a hemoglobin level of 13.3 g/dL in recent blood work. Preventative care includes a colonoscopy last done in November 2021 and vaccinations for shingles, tetanus, RSV, and pneumonia. Health Maintenance - Colonoscopy last performed in November 2021 - Vaccinations: shingles, tetanus, RSV, pneumonia - Diet modification: reducing rice intake - Exercise: increased physical activity, use of exercise bike Social History - Exercise: Engages in physical activity using an exercise bike at home for 5-10 minutes a day, not daily, to manage weight. - Diet: Actively reducing rice intake to manage diabetes and weight. - Functional status: Reports hip and lower back pain affecting mobility, consi dering a handicap placard for parking convenience. Review of Systems - Respiratory: Reports occasional wheezing, denies significant exacerbations. - Musculoskeletal: Reports hip and lower back pain, denies recent falls. - Neurological: Denies significant issues, reports medication affecting appetite. Physical Exam Results - Labs: Hemoglobin A1c improved from 6.4% in November to 6.1%. - Labs: Mild anemia with hemoglobin level of 13.3 g/dL. - Labs: LDL cholesterol at 87 mg/dL. Plan Patient was informed and verbally consented to the use of an ambient scribe for clinic note documentation during this visit. 1. Obesity The patient is advised to continue with dietary modifications and increase physical activity to manage obesity. 2. Hypercholesterolemia The patient is to continue simvastatin 10 mg daily to maintain LDL cholesterol levels below 100 mg/dL. 3. Asthma The patient should continue using the asthma inhaler as needed and monitor for any increase in wheezing or exacerbations. 4. Hepatic Steatosis The patient is advised to continue monitoring hepatic steatosis with regular follow-ups. 5. Generalized Anxiety Disorder The patient is to continue mirtazapine and monitor for any changes in anxiety levels or appetite. 6. Diabetes Mellitus The patient is to maintain a diet-controlled regimen to keep hemoglobin A1c below 6.5%. 7. Mild Anemia The patient should have follow-up blood work to monitor anemia status. Discussion Notes During the visit, we discussed the importance of maintaining a healthy diet and regular exercise to manage obesity and diabetes mellitus. The patient was advised to continue simvastatin for hypercholesterolemia and to monitor asthma symptoms, using the inhaler as needed. We also reviewed the patient's anxiety management with mirtazapine and the need for regular follow-ups for hepatic steatosis and anemia. Patient Instructions - Continue dietary modifications and increase physical activity to manage weight and diabetes. - Take simvastatin 10 mg daily to maintain cholesterol levels. - Use asthma inhaler as needed and monitor for wheezing. - Continue mirtazapine for anxiety and monitor appetite changes. - Schedule follow-up blood work to monitor anemia. Orders: Orders Reticulocyte Count 5 Months E11. - Type 2 diabetes mellitus with hyperglycemia IRON PROFILE 5 Months E11. - Type 2 diabetes mellitus with hyperglycemia Microalbumin, Random (w Creat) 5 Months E11. - Type 2 diabetes mellitus with hyperglycemia Thyroid Stimulating Hormone 5 Months E11. - Type 2 diabetes mellitus with hyperglycemia Vitamin B12 and Folate 5 Months E11. - Type 2 diabetes mellitus with hyperglycemia Complete Blood Count Auto Diff 5 Months E11. - Type 2 diabetes mellitus with hyperglycemia Comprehensive Met. Panel 5 Months E11. - Type 2 diabetes mellitus with hyperglycemia Ferritin 5 Months E11. - Type 2 diabetes mellitus with hyperglycemia Lipid Panel 5 Months E11.65 - Type 2 diabetes mellitus with hyperglycemia, E78.00 - Pure hypercholesterolemia, unspecified Hemoglobin A1c 5 Months E11.65 - Type 2 diabetes mellitus with hyperglycemia Free T4 (Free Thyroxine) 5 Months E11. - Type 2 diabetes mellitus with hyperglycemia Creatinine Urine 5 Months E11. - Type 2 diabetes mellitus with hyperglycemia Prostate Specific Antigen Scr 5 Months E11.65 - Type 2 diabetes mellitus with hyperglycemia
[2025-04-27 11:12] VITALS: BP 118/70; PULSE 74; O2SAT 97
--- OUTSIDE RECORDS SUMMARY | 2025-04-27 14:11 | XMS_ITS | Patient Health Record ---
Author Organization [facility] Address [address] [place] [address] Care Team Providers Care Payroll Associate Name Role Phone Allyn Fitzgerald MD Primary Care Provider Farshad [place] [phone] Allergies Allergen (clinical drug ingredient) Drug/Non Drug [...] Problem Status W/U Status Risk Notes Problem [id number] Encounter for screening for malignant neoplasm of colon (Z12.11) Active confirmed Problem [id number] Elevated liver function tests (R79.89) Active confirmed Problem [id number] Fatty liver (K76.0) Active confirmed Problem Diverticulosis of colon (005679326) Diverticulosis of colon (K57.30) Active confirmed Plan Of Treatment Pending Test Test Name Order Date LIVER PROFILE 11/01/2021 HEPATITIS A,B,C PROFILE 11/01/2021 [id number] (A1A) 11/01/2021 US ABD 11/01/2021 FLUOR. ANTINUCLEAR AB SCREEN (MEGAN) 10/12 Mitochondrial Antibody 11/01/2021 Smooth Muscle Antibody 11/01/2021 Pathology 12/02/2021 Future Test Test Name Order Date COLONOSCOPY 11/01/2021 Insurance Providers Payer Name Payer Address Payer Phone Subscriber Number Group Number Insured Name Patient Relationship to Insured Coverage Start Date Coverage End Date [facility] [address] [address] [place], [place] [id number] RAS SALVADOR Self - patient is the insured Medical (General) History Medical History History ICD Code Asthma Kidney stones Denies SD,DM,CVA,,renal disease Seasonal allergies Negative colonoscopy in his 30's Arthritis Elevated iron--seeing Dr. Young Told of fatty liver Anxiety/Depression Surgical History Surgery Date(Month/Year) Nose Tonsillectomy Ear tubes
== END 2025-04-27 11:55 | disposition home or self-care (01) ==
LOC: HO.HMCH 10:48
PROVIDERS: PCP Internal Medicine; Visit Provider Internal Medicine
DX: E11.65 Type 2 diabetes mellitus with hyperglycemia (principal); E78.00 Pure hypercholesterolemia, unspecified; F41.1 Generalized anxiety disorder; K21.9 Gastro-esophageal reflux disease without esophagitis; Z13.9 Encounter for screening, unspecified

== ENCOUNTER → 2025-04-27 10:48 | Outpatient (BNVA) | payer OTHER, SELFPAY | PROVIDERS: PCP Internal Medicine; Visit Provider Internal Medicine | DX: E11.65 Type 2 diabetes mellitus with hyperglycemia (principal); E78.00 Pure hypercholesterolemia, unspecified; F41.1 Generalized anxiety disorder; K21.9 Gastro-esophageal reflux disease without esophagitis; E66.9 Obesity, unspecified; Z79.899 Other long term (current) drug therapy; J45.909 Unspecified asthma, uncomplicated; K76.0 Fatty (change of) liver, not elsewhere classified; D64.9 Anemia, unspecified; Z68.30 Body mass index [BMI] 30.0-30.9, adult | CPT/HCPCS: 99212 ==